=== PATIENT | female | born 1935 | race Caucasian/White ===

== ENCOUNTER 2018-04-21 02:18 | Outpatient (RCR) | payer MEDICARE, SELFPAY ==
[2018-04-21] MEDS: Normal Saline Flush 10 ML SYR IVP (08:25)
[2018-04-21 08:46] LABS: Abs Immature Grans 0.01 k/cumm (0.0-0.09); Absolute Basophil Count 0.03 k/cumm (0.0-0.2); Absolute Lymphocyte Count 1.17 k/cumm (1.2-3.4); Absolute Monocyte Count 0.48 k/cumm (0.11-0.7); Absolute Neutrophil Count 2.89 k/cumm (1.2-6.7); Basophils % 0.6; Eosinophils % 6.1; HCT 38.7 % (36.0-46.0); HGB 12.9 g/dL (12.0-15.5); Immature Grans % 0.2; Mean Corp. HGB Concentration 33.3 g/dL (32.0-36.0); Mean Corpuscular Hemoglobin 30.2 pg (27.0-33.0); Mean Corpuscular Volume 90.6 fL (80-95); Monocytes % 9.8; Neutrophils % 59.3; Platelet Count 260 x1000/uL (130-400); RBC 4.27 m/cumm (4.00-5.20); RBC Distribution Width 14.8 % (11.7-14.6); White Blood Cell Count 4.88 k/cumm (4.4-10.8)
[2018-04-21 09:02] LABS: ALT 16 U/L (12-78); AST 15 U/L (15-37); Albumin 3.1 g/dL (3.4-5.0); Alkaline Phosphatase 52 U/L (46-116); Anion Gap 11.4 mmol/L (3-11); BUN 12 mg/dL (7-18); Bilirubin, Total 0.4 mg/dL (0.2-1.0); CO2 23.6 mmol/L (21.0-32.0); CREATININE 1.02 mg/dL (0.55-1.02); Calcium 8.7 mg/dL (8.5-10.1); Chloride 107 mmol/L (98-107); Estimated GFR 52.14 (mL/min/1.73m2); Glucose 102 mg/dL (70-100); Potassium 3.7 mmol/L (3.5-5.1); Sodium 142 mmol/L (136-145); Total Protein 6.4 g/dL (6.4-8.2)
== END 2018-05-06 ==
LOC: INF 02:18
PROVIDERS: PCP Family Medicine; Visit Provider Internal Medicine Medical Oncology
DX: C50.412 Malignant neoplasm of upper-outer quadrant of left female breast (principal); Z17.1 Estrogen receptor negative status [ER-]; Z45.2 Encounter for adjustment and management of vascular access device
CPT/HCPCS: 36591; 80053; 85025

== ENCOUNTER 2018-06-02 01:30 | Outpatient (RCR) | payer MEDICARE, SELFPAY ==
[2018-05-12 08:53] LABS: Abs Immature Grans 0.01 k/cumm (0.0-0.09); Absolute Basophil Count 0.05 k/cumm (0.0-0.2); Absolute Lymphocyte Count 1.19 k/cumm (1.2-3.4); Absolute Monocyte Count 0.48 k/cumm (0.11-0.7); Basophils % 0.8; HCT 38.3 % (36.0-46.0); HGB 12.8 g/dL (12.0-15.5); Immature Grans % 0.2; Lymphocytes % 19.7; Mean Corp. HGB Concentration 33.4 g/dL (32.0-36.0); Mean Corpuscular Hemoglobin 30.5 pg (27.0-33.0); Mean Corpuscular Volume 91.4 fL (80-95); Mean Platelet Volume 9.9 fL (8.0-11.0); Neutrophils % 66.3; Platelet Count 285 x1000/uL (130-400); RBC 4.19 m/cumm (4.00-5.20); RBC Distribution Width 14.6 % (11.7-14.6); White Blood Cell Count 6.03 k/cumm (4.4-10.8)
[2018-05-12 09:07] LABS: ALT 17 U/L (12-78); AST 16 U/L (15-37); Albumin 3.1 g/dL (3.4-5.0); Alkaline Phosphatase 60 U/L (46-116); Anion Gap 5.6 mmol/L (3-11); BUN 9 mg/dL (7-18); Bilirubin, Total 0.3 mg/dL (0.2-1.0); CO2 27.4 mmol/L (21.0-32.0); CREATININE 0.98 mg/dL (0.55-1.02); Chloride 107 mmol/L (98-107); Estimated GFR 54.47 (mL/min/1.73m2); Glucose 101 mg/dL (70-100); Potassium 3.8 mmol/L (3.5-5.1); Sodium 140 mmol/L (136-145); Total Protein 6.6 g/dL (6.4-8.2)
[2018-05-12] MEDS: Normal Saline Flush 10 ML SYR IVP (13:25)
[2018-06-02] MEDS: Normal Saline Flush 10 ML SYR IVP (10:00)
[2018-06-02 10:14] LABS: Abs Immature Grans 0.01 k/cumm (0.0-0.09); Absolute Basophil Count 0.03 k/cumm (0.0-0.2); Absolute Eosinophil Count 0.25 k/cumm (0.0-0.7); Absolute Lymphocyte Count 1.32 k/cumm (1.2-3.4); Absolute Monocyte Count 0.47 k/cumm (0.11-0.7); Absolute Neutrophil Count 4.47 k/cumm (1.2-6.7); Basophils % 0.5; Eosinophils % 3.8; HCT 38.9 % (36.0-46.0); Immature Grans % 0.2; Lymphocytes % 20.2; Mean Corp. HGB Concentration 33.4 g/dL (32.0-36.0); Mean Corpuscular Hemoglobin 30.7 pg (27.0-33.0); Mean Platelet Volume 10.1 fL (8.0-11.0); Monocytes % 7.2; Neutrophils % 68.1; Platelet Count 268 x1000/uL (130-400); RBC 4.23 m/cumm (4.00-5.20); RBC Distribution Width 14.4 % (11.7-14.6); White Blood Cell Count 6.55 k/cumm (4.4-10.8)
[2018-06-02 10:25] LABS: ALT 18 U/L (12-78); AST 18 U/L (15-37); Albumin 3.2 g/dL (3.4-5.0); Alkaline Phosphatase 60 U/L (46-116); Anion Gap 8.8 mmol/L (3-11); BUN 13 mg/dL (7-18); Bilirubin, Total 0.4 mg/dL (0.2-1.0); CO2 26.2 mmol/L (21.0-32.0); CREATININE 1.04 mg/dL (0.55-1.02); Calcium 8.8 mg/dL (8.5-10.1); Chloride 106 mmol/L (98-107); Estimated GFR 50.86 (mL/min/1.73m2); Glucose 100 mg/dL (70-100); Potassium 3.9 mmol/L (3.5-5.1); Sodium 141 mmol/L (136-145); Total Protein 6.6 g/dL (6.4-8.2)
== END 2018-06-05 23:59 | disposition home or self-care (01) ==
LOC: INF 01:30
PROVIDERS: PCP Family Medicine; Visit Provider Internal Medicine Medical Oncology
DX: C50.412 Malignant neoplasm of upper-outer quadrant of left female breast (principal); Z17.1 Estrogen receptor negative status [ER-]; Z45.2 Encounter for adjustment and management of vascular access device
CPT/HCPCS: 36591; 80053; 85025

== ENCOUNTER 2018-06-23 02:00 | Outpatient (RCR) | payer MEDICARE, SELFPAY ==
[2018-06-23] MEDS: Normal Saline Flush 10 ML SYR IVP (09:35)
[2018-06-23 10:19] LABS: Abs Immature Grans 0.01 k/cumm (0.0-0.09); Absolute Basophil Count 0.05 k/cumm (0.0-0.2); Absolute Eosinophil Count 0.22 k/cumm (0.0-0.7); Absolute Lymphocyte Count 0.99 k/cumm (1.2-3.4); Absolute Monocyte Count 0.39 k/cumm (0.11-0.7); Absolute Neutrophil Count 3.27 k/cumm (1.2-6.7); Eosinophils % 4.5; HCT 40.4 % (36.0-46.0); HGB 13.7 g/dL (12.0-15.5); Immature Grans % 0.2; Lymphocytes % 20.1; Mean Corp. HGB Concentration 33.9 g/dL (32.0-36.0); Mean Corpuscular Hemoglobin 30.9 pg (27.0-33.0); Monocytes % 7.9; Neutrophils % 66.3; Platelet Count 262 x1000/uL (130-400); RBC 4.44 m/cumm (4.00-5.20); RBC Distribution Width 14.3 % (11.7-14.6); White Blood Cell Count 4.93 k/cumm (4.4-10.8)
[2018-06-23 10:38] LABS: ALT 19 U/L (12-78); AST 17 U/L (15-37); Albumin 3.3 g/dL (3.4-5.0); Alkaline Phosphatase 58 U/L (46-116); Anion Gap 10.8 mmol/L (3-11); BUN 16 mg/dL (7-18); Bilirubin, Total 0.4 mg/dL (0.2-1.0); CO2 26.2 mmol/L (21.0-32.0); CREATININE 0.98 mg/dL (0.55-1.02); Calcium 9.2 mg/dL (8.5-10.1); Chloride 106 mmol/L (98-107); Estimated GFR 54.47 (mL/min/1.73m2); Glucose 92 mg/dL (70-100); Potassium 3.8 mmol/L (3.5-5.1); Sodium 143 mmol/L (136-145); Total Protein 6.7 g/dL (6.4-8.2)
== END 2018-07-06 23:59 | disposition home or self-care (01) ==
LOC: INF 02:00
PROVIDERS: PCP Family Medicine; Visit Provider Internal Medicine Medical Oncology
DX: C50.412 Malignant neoplasm of upper-outer quadrant of left female breast (principal); Z17.1 Estrogen receptor negative status [ER-]; Z45.2 Encounter for adjustment and management of vascular access device
CPT/HCPCS: 36415; 80053; 96523; 85025

== ENCOUNTER 2018-07-19 00:40 | Outpatient (CLI) | payer MEDICARE, SELFPAY ==
--- NOTE | 2018-07-19 08:15 | DI.NM_ITS ---
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 Comparison is made with examination from . There is radiotracer activity seen in the kidneys and urinary bladder. Since the prior examination, there has been significant decrease in the radiotracer uptake in the axial and appendicular skeleton. Most notably, the activity seen in the mid thoracic spine, lumbar spine and ribs has nearly completely resolved. There is mild increased radiotracer uptake still visualized in the right hemisacrum and right 11th rib. No new areas of increased radiotracer uptake are noted. There is stable mild increased radiotracer uptake projected in the left breast. This appears stable since . Photopenic areas are seen in the hips bilaterally, consistent with bilateral total hip prostheses. IMPRESSION: 1. Significant decrease in the radiotracer uptake previously seen in the axial and appendicular skeleton consistent with response to therapy. Mild residual increased radiotracer uptake seen in the right 11th rib and the right hemisacrum. 2. No new areas of increased radiotracer activity in the axial or appendicular skeleton to suggest new osseous metastatic disease.
== END 2018-07-19 01:00 ==
PROVIDERS: PCP Family Medicine; Visit Provider Internal Medicine Hematology & Oncology
DX: C79.51 Secondary malignant neoplasm of bone (principal); C50.412 Malignant neoplasm of upper-outer quadrant of left female breast; Z17.1 Estrogen receptor negative status [ER-]
CPT/HCPCS: 78306

== ENCOUNTER 2018-08-02 01:17 | Outpatient (CLI) | payer MEDICARE, SELFPAY ==
--- NOTE | 2018-08-02 10:30 | MERGE_ITS ---
*[facility]* *[facility]* [address] [place] [address] Date of study: 08/02/2018 Transthoracic Echocardiography M-mode, complete 2D, complete spectral Doppler, and color Doppler *STUDY CONCLUSIONS* Summary: 1. Left ventricle: Wall thickness was increased increased in a pattern of mild to moderate LVH. Systolic function was normal. The estimated ejection fraction was 55-60%. Wall motion was normal; there were no regional wall motion abnormalities. Some parameters suggest diastolic dysfunction. 2. Mitral valve: Mildly calcified annulus. 3. Right ventricle: The cavity size was normal. Wall thickness was normal. Systolic function was normal. 4. Pulmonary arteries: Pulmonary systolic pressure was increased, in the range of 35mm Hg to 40mm Hg. *PATIENT PRESENTATION* Height: 160cm ((63in) ) S/D Pressure: 131 / 72 Weight: 86.2kg ((189.6lb) ) BSA: 1.99m^2 Test start time: 10:40 AM. Test stop time: 11:20 AM. PERFORMING Unknown PERFORMING [facility] RN ADMISSION RT Ada (Emma)(CT), [facility] ORDERING Que Merino REFERRING Que Merino *PROCEDURE DATA* Procedure information: The patient was identified by two identifiers. This study was interpreted by [facility]. Pertinent images and digital data are archived for permanent storage and are available for subsequent review. Comparison was made to the study of 11/20/2016. Study status: Routine. Transthoracic echocardiography. M-mode, complete 2D, complete spectral Doppler, and color Doppler. A Transthoracic Echocardiogram was performed. Scanning was performed from the parasternal, apical, subcostal, and suprasternal notch acoustic windows. Images were obtained using an [id number] cardiac ultrasound machine. Image quality was adequate. Study completion: The patient tolerated the procedure well. There were no complications. *CARDIAC ANATOMY* Left ventricle: Wall thickness was increased increased in a pattern of mild to moderate LVH. Systolic function was normal. The estimated ejection fraction was 55-60%. Wall motion was normal; there were no regional wall motion abnormalities. Some parameters suggest diastolic dysfunction. Aortic valve: Trileaflet; normal thickness, mildly calcified leaflets. Mobility was not restricted. Doppler: Transvalvular velocity was within the normal range. There was no stenosis. There was no significant regurgitation. VTI ratio of LVOT to aortic valve: 0.58. Valve area (VTI): 2cm^2. Indexed valve area (VTI): 1cm^2/m^2. Peak velocity ratio of LVOT to aortic valve: 0.56. Valve area (Vmax): 1.9cm^2. Indexed valve area (Vmax): 1cm^2/m^2. Mean velocity ratio of LVOT to aortic valve: 0.6. Valve area (Vmean): 2.1cm^2. Indexed valve area (Vmean): 1cm^2/m^2. Mean gradient (S): 5.2mm Hg. Peak gradient (S): 8.9mm Hg. Aorta: Aortic root: The aortic root was normal in size. Ascending aorta: The ascending aorta was mildly dilated. Mitral valve: Mildly calcified annulus. Mobility was not restricted. Doppler: Transvalvular velocity was within the normal range. There was no evidence for stenosis. There was trivial regurgitation. Valve area by pressure half-time: 2.8cm^2. Indexed valve area by pressure half-time: 1.4cm^2/m^2. Peak gradient (D): 2.2mm Hg. Left atrium: The atrium was normal in size. Right ventricle: The cavity size was normal. Wall thickness was normal. Systolic function was normal. Pulmonic valve: Structurally normal valve. Doppler: Transvalvular velocity was within the normal range. There was no evidence for stenosis. There was no significant regurgitation. Tricuspid valve: Structurally normal valve. Doppler: Transvalvular velocity was within the normal range. There was no evidence for stenosis. There was mild regurgitation. Pulmonary artery: Pulmonary systolic pressure was increased, in the range of 35mm Hg to 40mm Hg. Right atrium: The atrium was normal in size. Pericardium: There was no pericardial effusion. Systemic veins: Inferior vena cava: Well visualized. The vessel was patent and normal in size. The respirophasic diameter changes were in the normal range (greater than or equal to 50%). Baseline ECG: Normal sinus rhythm. Measurements Left ventricle Value 11/20/2016 Reference LV ID, ED, PLAX 5.2 cm 5.4 3.5 - 6.0 LV ID, ES, PLAX 3.5 cm 4.0 2.1 - 4.0 LV PW thickness, ED, PLAX 1.2 cm 1.2 LV end-diastolic volume, 87 ml 1-p A2C LV ejection fraction, 1-p 60 % 51 A2C LV end-diastolic volume, 77 ml 1-p A4C LV ejection fraction, 1-p 61 % 42 A4C LV e', lateral 0.068 m/sec LV E/e', lateral 11 LV e', medial 0.056 m/sec LV E/e', medial 13 LV e', average 0.062 m/sec LV E/e', average 12 Ventricular septum Value 11/20/2016 Reference IVS thickness, ED, PLAX 1.3 cm 1.3 LVOT Value 11/20/2016 Reference LVOT ID, A-P 2.1 cm 2.2 LVOT area 3.4 cm^2 3.7 LVOT peak velocity, S 0.84 m/sec 0.62 LVOT mean velocity, S 0.66 m/sec LVOT VTI, S 19.6 cm 15.1 LVOT peak gradient, S 2.8 mm Hg LVOT mean gradient, S 1.9 mm Hg 1 Stroke volume (SV), LVOT 67 ml DP Stroke index (SV/bsa), 33 ml/m^2 LVOT DP Aortic valve Value 11/20/2016 Reference Aortic valve peak 1.5 m/sec velocity, S Aortic valve mean 1.08 m/sec velocity, S Aortic valve VTI, S 34.0 cm Aortic mean gradient, S 5.2 mm Hg 3 Aortic peak gradient, S 8.9 mm Hg 5 VTI ratio, LVOT/AV 0.58 Aortic valve area, VTI 2 cm^2 2.1 Velocity ratio, peak, 0.56 LVOT/AV Aortic valve area, peak 1.9 cm^2 1.9 velocity Velocity ratio, mean, 0.6 LVOT/AV Aortic valve area, mean 2.1 cm^2 velocity Aortic valve area/bsa, 1 cm^2/m^2 mean velocity Aorta Value 11/20/2016 Reference Aortic root ID, ED 3.3 cm Ascending aorta ID, A-P, S 3.7 cm 3.7 Left atrium Value 11/20/2016 Reference LA ID, A-P, ES 4.7 cm LA ID/bsa, A-P (H) 2.3 cm/m^2 <=2.2 LA area, ES, A4C 21.7 cm^2 8.8 - 23.4 LA area, ES, A2C 20 cm^2 25 LA volume/bsa, ES, 1-p A4C 37 ml/m^2 51 LA volume, ES, 2-p 69 ml LA volume/bsa, ES, 2-p 34 ml/m^2 LA/aortic root ratio 1.41 1.41 Mitral valve Value 11/20/2016 Reference Mitral E-wave peak 0.75 m/sec 0.77 velocity Mitral A-wave peak 0.92 m/sec 0.91 velocity Mitral deceleration time (H) 275 ms 150 - 230 Mitral pressure half-time 80 ms 60 Mitral peak gradient, D 2.2 mm Hg Mitral E/A ratio, peak 0.81 0.85 Mitral valve area, PHT, DP 2.8 cm^2 3.7 Pulmonary veins Value 11/20/2016 Reference Pulmonary vein peak 0.57 m/sec 0.72 velocity, S Pulmonary vein peak 0.51 m/sec 0.6 velocity, D Pulmonary vein velocity 1.12 1.2 ratio, peak, S/D Pulmonary vein A-wave 0.42 m/sec 0.45 reversal peak velocity Pulmonary vein A-wave 149 ms 173 reversal duration Tricuspid valve Value 11/20/2016 Reference Tricuspid regurg peak 3 m/sec 2.9 velocity Tricuspid peak RV-RA 36.4 mm Hg 33.8 gradient Right atrium Value 11/20/2016 Reference RA area, ES, A4C (H) 23.2 cm^2 24 8.3 - 19.5 Legend: (L) and (H) solomon values outside specified reference range. I have personally reviewed the images and have reviewed and edited the reported findings. Electronically signed by Matt Clark 08/02/2018 12:29
== END 2018-08-02 01:37 ==
PROVIDERS: PCP Family Medicine; Visit Provider Internal Medicine Hematology & Oncology
DX: I51.7 Cardiomegaly (principal); I10 Essential (primary) hypertension; E03.9 Hypothyroidism, unspecified; I34.8 Other nonrheumatic mitral valve disorders
CPT/HCPCS: 93306

== ENCOUNTER 2018-08-04 02:09 | Outpatient (RCR) | payer MEDICARE, SELFPAY ==
[2018-07-14] MEDS: Normal Saline Flush 10 ML SYR IVP (09:00)
[2018-07-14 09:22] LABS: Abs Immature Grans 0.01 k/cumm (0.0-0.09); Absolute Basophil Count 0.04 k/cumm (0.0-0.2); Absolute Eosinophil Count 0.26 k/cumm (0.0-0.7); Absolute Lymphocyte Count 1.08 k/cumm (1.2-3.4); Absolute Monocyte Count 0.43 k/cumm (0.11-0.7); Absolute Neutrophil Count 3.39 k/cumm (1.2-6.7); Basophils % 0.8; HCT 39.2 % (36.0-46.0); HGB 12.9 g/dL (12.0-15.5); Immature Grans % 0.2; Lymphocytes % 20.7; Mean Corp. HGB Concentration 32.9 g/dL (32.0-36.0); Mean Corpuscular Hemoglobin 30.1 pg (27.0-33.0); Mean Corpuscular Volume 91.6 fL (80-95); Mean Platelet Volume 9.7 fL (8.0-11.0); Monocytes % 8.3; Platelet Count 285 x1000/uL (130-400); RBC 4.28 m/cumm (4.00-5.20); RBC Distribution Width 14.1 % (11.7-14.6); White Blood Cell Count 5.21 k/cumm (4.4-10.8)
[2018-07-14 09:38] LABS: ALT 22 U/L (12-78); AST 19 U/L (15-37); Alkaline Phosphatase 56 U/L (46-116); Anion Gap 10.6 mmol/L (3-11); BUN 12 mg/dL (7-18); Bilirubin, Total 0.4 mg/dL (0.2-1.0); CO2 26.4 mmol/L (21.0-32.0); Calcium 8.8 mg/dL (8.5-10.1); Chloride 106 mmol/L (98-107); Glucose 95 mg/dL (70-100); Potassium 3.8 mmol/L (3.5-5.1); Sodium 143 mmol/L (136-145); Total Protein 6.2 g/dL (6.4-8.2)
[2018-08-04] MEDS: Normal Saline Flush 10 ML SYR IVP (09:06)
[2018-08-04 09:31] LABS: Abs Immature Grans 0.01 k/cumm (0.0-0.09); Absolute Basophil Count 0.05 k/cumm (0.0-0.2); Absolute Eosinophil Count 0.32 k/cumm (0.0-0.7); Absolute Lymphocyte Count 1.17 k/cumm (1.2-3.4); Absolute Monocyte Count 0.45 k/cumm (0.11-0.7); Absolute Neutrophil Count 3.52 k/cumm (1.2-6.7); Basophils % 0.9; Eosinophils % 5.8; HCT 39.6 % (36.0-46.0); Immature Grans % 0.2; Lymphocytes % 21.2; Mean Corp. HGB Concentration 32.8 g/dL (32.0-36.0); Mean Corpuscular Hemoglobin 30.4 pg (27.0-33.0); Mean Corpuscular Volume 92.5 fL (80-95); Mean Platelet Volume 10.3 fL (8.0-11.0); Monocytes % 8.2; Neutrophils % 63.7; Platelet Count 247 x1000/uL (130-400); RBC 4.28 m/cumm (4.00-5.20); RBC Distribution Width 14.5 % (11.7-14.6); White Blood Cell Count 5.52 k/cumm (4.4-10.8)
[2018-08-04 09:48] LABS: ALT 17 U/L (12-78); AST 17 U/L (15-37); Albumin 3.2 g/dL (3.4-5.0); Alkaline Phosphatase 56 U/L (46-116); Anion Gap 11.3 mmol/L (3-11); BUN 17 mg/dL (7-18); Bilirubin, Total 0.5 mg/dL (0.2-1.0); CO2 25.7 mmol/L (21.0-32.0); CREATININE 1.02 mg/dL (0.55-1.02); Calcium 8.8 mg/dL (8.5-10.1); Chloride 106 mmol/L (98-107); Estimated GFR 52.01 (mL/min/1.73m2); Glucose 113 mg/dL (70-100); Potassium 3.6 mmol/L (3.5-5.1); Sodium 143 mmol/L (136-145); Total Protein 6.6 g/dL (6.4-8.2)
== END 2018-08-05 23:59 | disposition home or self-care (01) ==
LOC: INF 02:09
PROVIDERS: Internal Medicine Hematology & Oncology; PCP Family Medicine; Visit Provider Internal Medicine Medical Oncology
DX: C50.412 Malignant neoplasm of upper-outer quadrant of left female breast (principal); Z17.1 Estrogen receptor negative status [ER-]; Z45.2 Encounter for adjustment and management of vascular access device
CPT/HCPCS: 36591; 80053; 85025

== ENCOUNTER 2018-08-25 02:35 | Outpatient (RCR) | payer MEDICARE, SELFPAY ==
[2018-08-25] MEDS: Normal Saline Flush 10 ML SYR IVP (11:25)
[2018-08-25 11:40] LABS: Abs Immature Grans 0.01 k/cumm (0.0-0.09); Absolute Basophil Count 0.02 k/cumm (0.0-0.2); Absolute Eosinophil Count 0.22 k/cumm (0.0-0.7); Absolute Lymphocyte Count 1.26 k/cumm (1.2-3.4); Absolute Monocyte Count 0.35 k/cumm (0.11-0.7); Absolute Neutrophil Count 3.47 k/cumm (1.2-6.7); Basophils % 0.4; Eosinophils % 4.1; HCT 39.5 % (36.0-46.0); HGB 13.1 g/dL (12.0-15.5); Immature Grans % 0.2; Lymphocytes % 23.6; Mean Corp. HGB Concentration 33.2 g/dL (32.0-36.0); Mean Corpuscular Hemoglobin 30.2 pg (27.0-33.0); Mean Platelet Volume 9.9 fL (8.0-11.0); Monocytes % 6.6; Neutrophils % 65.1; Platelet Count 261 x1000/uL (130-400); RBC 4.34 m/cumm (4.00-5.20); RBC Distribution Width 14.3 % (11.7-14.6); White Blood Cell Count 5.33 k/cumm (4.4-10.8)
[2018-08-25 12:07] LABS: ALT 20 U/L (12-78); AST 18 U/L (15-37); Albumin 3.3 g/dL (3.4-5.0); Alkaline Phosphatase 52 U/L (46-116); Anion Gap 9.8 mmol/L (3-11); BUN 17 mg/dL (7-18); Bilirubin, Total 0.4 mg/dL (0.2-1.0); CO2 26.2 mmol/L (21.0-32.0); CREATININE 0.95 mg/dL (0.55-1.02); Calcium 9.3 mg/dL (8.5-10.1); Chloride 106 mmol/L (98-107); Estimated GFR 56.46 (mL/min/1.73m2); Glucose 113 mg/dL (70-100); Potassium 3.8 mmol/L (3.5-5.1); Sodium 142 mmol/L (136-145); Total Protein 6.7 g/dL (6.4-8.2)
== END 2018-09-05 23:59 | disposition home or self-care (01) ==
LOC: INF 02:35
PROVIDERS: PCP Family Medicine; Visit Provider Internal Medicine Hematology & Oncology
DX: C50.412 Malignant neoplasm of upper-outer quadrant of left female breast (principal); Z17.1 Estrogen receptor negative status [ER-]; Z45.2 Encounter for adjustment and management of vascular access device
CPT/HCPCS: 36591; 80053; 85025

== ENCOUNTER 2018-10-06 01:31 | Outpatient (RCR) | payer MEDICARE, SELFPAY ==
[2018-09-15] MEDS: Normal Saline Flush 10 ML SYR IVP (11:32)
[2018-09-15 11:39] LABS: Abs Immature Grans 0.01 k/cumm (0.0-0.09); Absolute Basophil Count 0.05 k/cumm (0.0-0.2); Absolute Lymphocyte Count 1.25 k/cumm (1.2-3.4); Absolute Monocyte Count 0.53 k/cumm (0.11-0.7); Absolute Neutrophil Count 4.66 k/cumm (1.2-6.7); Basophils % 0.7; HCT 40.1 % (36.0-46.0); HGB 13.6 g/dL (12.0-15.5); Immature Grans % 0.1; Lymphocytes % 18.7; Mean Corp. HGB Concentration 33.9 g/dL (32.0-36.0); Mean Corpuscular Hemoglobin 31.1 pg (27.0-33.0); Mean Corpuscular Volume 91.8 fL (80-95); Mean Platelet Volume 9.6 fL (8.0-11.0); Monocytes % 7.9; Neutrophils % 69.6; Platelet Count 309 x1000/uL (130-400); RBC 4.37 m/cumm (4.00-5.20); RBC Distribution Width 14.2 % (11.7-14.6)
[2018-09-15 11:51] LABS: ALT 17 U/L (12-78); AST 16 U/L (15-37); Albumin 3.3 g/dL (3.4-5.0); Alkaline Phosphatase 55 U/L (46-116); Anion Gap 10.2 mmol/L (3-11); BUN 17 mg/dL (7-18); Bilirubin, Total 0.5 mg/dL (0.2-1.0); CO2 25.8 mmol/L (21.0-32.0); CREATININE 1.11 mg/dL (0.55-1.02); Calcium 9.4 mg/dL (8.5-10.1); Chloride 106 mmol/L (98-107); Estimated GFR 47.18 (mL/min/1.73m2); Glucose 104 mg/dL (70-100); Sodium 142 mmol/L (136-145); Total Protein 7.1 g/dL (6.4-8.2)
[2018-10-06] MEDS: Normal Saline Flush 10 ML SYR IVP (10:00)
[2018-10-06 10:28] LABS: Abs Immature Grans 0.01 k/cumm (0.0-0.09); Absolute Basophil Count 0.03 k/cumm (0.0-0.2); Absolute Eosinophil Count 0.23 k/cumm (0.0-0.7); Absolute Monocyte Count 0.46 k/cumm (0.11-0.7); Basophils % 0.5; Eosinophils % 3.9; HCT 41.3 % (36.0-46.0); HGB 13.6 g/dL (12.0-15.5); Immature Grans % 0.2; Lymphocytes % 18.5; Mean Corp. HGB Concentration 32.9 g/dL (32.0-36.0); Mean Corpuscular Hemoglobin 30.2 pg (27.0-33.0); Mean Corpuscular Volume 91.6 fL (80-95); Monocytes % 7.8; Neutrophils % 69.1; Platelet Count 274 x1000/uL (130-400); RBC 4.51 m/cumm (4.00-5.20); RBC Distribution Width 14.7 % (11.7-14.6); White Blood Cell Count 5.93 k/cumm (4.4-10.8)
[2018-10-06 10:50] LABS: ALT 19 U/L (12-78); AST 18 U/L (15-37); Albumin 3.1 g/dL (3.4-5.0); Alkaline Phosphatase 52 U/L (46-116); Anion Gap 10.6 mmol/L (3-11); BUN 13 mg/dL (7-18); Bilirubin, Total 0.3 mg/dL (0.2-1.0); CO2 24.4 mmol/L (21.0-32.0); CREATININE 0.97 mg/dL (0.55-1.02); Calcium 8.3 mg/dL (8.5-10.1); Chloride 108 mmol/L (98-107); Estimated GFR 55.12 (mL/min/1.73m2); Glucose 107 mg/dL (70-100); Potassium 3.5 mmol/L (3.5-5.1); Sodium 143 mmol/L (136-145); Total Protein 6.7 g/dL (6.4-8.2)
== END 2018-10-06 23:59 | disposition home or self-care (01) ==
LOC: INF 01:31
PROVIDERS: PCP Family Medicine; Visit Provider Internal Medicine Hematology & Oncology
DX: C50.412 Malignant neoplasm of upper-outer quadrant of left female breast (principal); Z17.1 Estrogen receptor negative status [ER-]; Z45.2 Encounter for adjustment and management of vascular access device
CPT/HCPCS: 36591; 80053; 85025

== ENCOUNTER 2018-10-27 00:55 | Outpatient (RCR) | payer MEDICARE, SELFPAY ==
[2018-10-27] MEDS: Normal Saline Flush 10 ML SYR IVP (11:07)
[2018-10-27 11:15] LABS: Abs Immature Grans 0.02 k/cumm (0.0-0.09); Absolute Basophil Count 0.05 k/cumm (0.0-0.2); Absolute Eosinophil Count 0.25 k/cumm (0.0-0.7); Absolute Monocyte Count 0.47 k/cumm (0.11-0.7); Absolute Neutrophil Count 4.82 k/cumm (1.2-6.7); Basophils % 0.7; Eosinophils % 3.6; HCT 40.9 % (36.0-46.0); HGB 13.7 g/dL (12.0-15.5); Immature Grans % 0.3; Lymphocytes % 18.8; Mean Corp. HGB Concentration 33.5 g/dL (32.0-36.0); Mean Corpuscular Hemoglobin 30.4 pg (27.0-33.0); Mean Corpuscular Volume 90.7 fL (80-95); Mean Platelet Volume 9.9 fL (8.0-11.0); Monocytes % 6.8; Neutrophils % 69.8; Platelet Count 293 x1000/uL (130-400); RBC 4.51 m/cumm (4.00-5.20); RBC Distribution Width 14.4 % (11.7-14.6); White Blood Cell Count 6.91 k/cumm (4.4-10.8)
[2018-10-27 11:24] LABS: ALT 19 U/L (12-78); AST 19 U/L (15-37); Albumin 3.4 g/dL (3.4-5.0); Alkaline Phosphatase 56 U/L (46-116); BUN 14 mg/dL (7-18); Bilirubin, Total 0.5 mg/dL (0.2-1.0); CREATININE 0.95 mg/dL (0.55-1.02); Calcium 9.4 mg/dL (8.5-10.1); Chloride 106 mmol/L (98-107); Estimated GFR 56.46 (mL/min/1.73m2); Glucose 106 mg/dL (70-100); Potassium 3.9 mmol/L (3.5-5.1); Sodium 142 mmol/L (136-145); Total Protein 6.9 g/dL (6.4-8.2)
== END 2018-11-03 23:59 | disposition home or self-care (01) ==
LOC: INF 00:55
PROVIDERS: PCP Family Medicine; Visit Provider Internal Medicine Hematology & Oncology
DX: C50.412 Malignant neoplasm of upper-outer quadrant of left female breast (principal); Z17.1 Estrogen receptor negative status [ER-]; Z45.2 Encounter for adjustment and management of vascular access device
CPT/HCPCS: 36591; 80053; 85025

== ENCOUNTER → 2018-11-10 09:44 | Outpatient (BNVA) | payer MEDICARE, SELFPAY | PROVIDERS: PCP Family Medicine; Visit Provider Internal Medicine Cardiovascular Disease | DX: I49.3 Ventricular premature depolarization (principal); E03.9 Hypothyroidism, unspecified; I10 Essential (primary) hypertension; I47.2 Ventricular tachycardia | CPT/HCPCS: 99213 ==

== ENCOUNTER 2018-11-17 01:50 | Outpatient (RCR) | payer MEDICARE, SELFPAY ==
[2018-11-17] MEDS: Normal Saline Flush 10 ML SYR IVP ×2 (10:50→11:19)
[2018-11-17 11:14] LABS: Abs Immature Grans 0.01 k/cumm (0.0-0.09); Absolute Basophil Count 0.05 k/cumm (0.0-0.2); Absolute Eosinophil Count 0.27 k/cumm (0.0-0.7); Absolute Lymphocyte Count 1.13 k/cumm (1.2-3.4); Absolute Monocyte Count 0.53 k/cumm (0.11-0.7); Absolute Neutrophil Count 4.55 k/cumm (1.2-6.7); Basophils % 0.8; Eosinophils % 4.1; HGB 13.6 g/dL (12.0-15.5); Immature Grans % 0.2; Lymphocytes % 17.3; Mean Corp. HGB Concentration 33.2 g/dL (32.0-36.0); Mean Corpuscular Hemoglobin 30.4 pg (27.0-33.0); Mean Corpuscular Volume 91.5 fL (80-95); Mean Platelet Volume 10.1 fL (8.0-11.0); Monocytes % 8.1; Neutrophils % 69.5; Platelet Count 266 x1000/uL (130-400); RBC 4.48 m/cumm (4.00-5.20); RBC Distribution Width 14.3 % (11.7-14.6); White Blood Cell Count 6.54 k/cumm (4.4-10.8)
[2018-11-17 11:27] LABS: ALT 17 U/L (12-78); AST 19 U/L (15-37); Albumin 3.5 g/dL (3.4-5.0); Alkaline Phosphatase 57 U/L (46-116); Anion Gap 9.4 mmol/L (3-11); BUN 13 mg/dL (7-18); Bilirubin, Total 0.5 mg/dL (0.2-1.0); CO2 25.6 mmol/L (21.0-32.0); CREATININE 0.93 mg/dL (0.55-1.02); Calcium 8.9 mg/dL (8.5-10.1); Chloride 106 mmol/L (98-107); Estimated GFR 57.86 (mL/min/1.73m2); Glucose 96 mg/dL (70-100); Sodium 141 mmol/L (136-145)
== END 2018-12-04 23:59 | disposition home or self-care (01) ==
LOC: INF 01:50
PROVIDERS: PCP Family Medicine; Visit Provider Internal Medicine Hematology & Oncology
DX: C50.412 Malignant neoplasm of upper-outer quadrant of left female breast (principal); Z17.1 Estrogen receptor negative status [ER-]; Z45.2 Encounter for adjustment and management of vascular access device
CPT/HCPCS: 36591; 80053; 85025

== ENCOUNTER 2018-12-29 02:18 | Outpatient (RCR) | payer MEDICARE, SELFPAY ==
[2018-12-08] MEDS: Normal Saline Flush 10 ML SYR IVP (11:10)
[2018-12-08 11:51] LABS: Abs Immature Grans 0.01 k/cumm (0.0-0.09); Absolute Basophil Count 0.03 k/cumm (0.0-0.2); Absolute Eosinophil Count 0.26 k/cumm (0.0-0.7); Absolute Monocyte Count 0.51 k/cumm (0.11-0.7); Absolute Neutrophil Count 3.87 k/cumm (1.2-6.7); Basophils % 0.5; Eosinophils % 4.5; HCT 39.1 % (36.0-46.0); HGB 13.1 g/dL (12.0-15.5); Immature Grans % 0.2; Mean Corp. HGB Concentration 33.5 g/dL (32.0-36.0); Mean Corpuscular Hemoglobin 30.7 pg (27.0-33.0); Mean Corpuscular Volume 91.6 fL (80-95); Monocytes % 8.8; Platelet Count 267 x1000/uL (130-400); RBC 4.27 m/cumm (4.00-5.20); RBC Distribution Width 14.4 % (11.7-14.6); White Blood Cell Count 5.78 k/cumm (4.4-10.8)
[2018-12-08 12:07] LABS: ALT 17 U/L (12-78); AST 19 U/L (15-37); Albumin 3.3 g/dL (3.4-5.0); Alkaline Phosphatase 50 U/L (46-116); Anion Gap 9.5 mmol/L (3-11); BUN 18 mg/dL (7-18); Bilirubin, Total 0.4 mg/dL (0.2-1.0); CO2 26.5 mmol/L (21.0-32.0); Calcium 8.8 mg/dL (8.5-10.1); Chloride 106 mmol/L (98-107); Glucose 89 mg/dL (70-100); Potassium 3.7 mmol/L (3.5-5.1); Sodium 142 mmol/L (136-145); Total Protein 6.5 g/dL (6.4-8.2)
[2018-12-29] MEDS: Normal Saline Flush 10 ML SYR IVP (10:56)
[2018-12-29 11:22] LABS: Abs Immature Grans 0.01 k/cumm (0.0-0.09); Absolute Basophil Count 0.03 k/cumm (0.0-0.2); Absolute Eosinophil Count 0.26 k/cumm (0.0-0.7); Absolute Lymphocyte Count 0.98 k/cumm (1.2-3.4); Absolute Monocyte Count 0.39 k/cumm (0.11-0.7); Absolute Neutrophil Count 3.76 k/cumm (1.2-6.7); Basophils % 0.6; Eosinophils % 4.8; HCT 40.1 % (36.0-46.0); HGB 13.3 g/dL (12.0-15.5); Immature Grans % 0.2; Mean Corp. HGB Concentration 33.2 g/dL (32.0-36.0); Mean Corpuscular Hemoglobin 30.5 pg (27.0-33.0); Mean Platelet Volume 10.6 fL (8.0-11.0); Monocytes % 7.2; Neutrophils % 69.2; Platelet Count 264 x1000/uL (130-400); RBC 4.36 m/cumm (4.00-5.20); RBC Distribution Width 14.2 % (11.7-14.6); White Blood Cell Count 5.43 k/cumm (4.4-10.8)
[2018-12-29 11:24] LABS: ALT 20 U/L (12-78); AST 18 U/L (15-37); Albumin 3.2 g/dL (3.4-5.0); Alkaline Phosphatase 52 U/L (46-116); Anion Gap 10.5 mmol/L (3-11); BUN 13 mg/dL (7-18); Bilirubin, Total 0.4 mg/dL (0.2-1.0); CO2 25.5 mmol/L (21.0-32.0); CREATININE 1.01 mg/dL (0.55-1.02); Calcium 9.2 mg/dL (8.5-10.1); Chloride 106 mmol/L (98-107); Estimated GFR 52.61 (mL/min/1.73m2); Glucose 99 mg/dL (70-100); Potassium 3.8 mmol/L (3.5-5.1); Sodium 142 mmol/L (136-145); Total Protein 6.6 g/dL (6.4-8.2)
== END 2019-01-03 23:59 | disposition home or self-care (01) ==
LOC: INF 02:18
PROVIDERS: PCP Family Medicine; Visit Provider Internal Medicine Hematology & Oncology
DX: C50.412 Malignant neoplasm of upper-outer quadrant of left female breast (principal); Z17.1 Estrogen receptor negative status [ER-]; Z45.2 Encounter for adjustment and management of vascular access device
CPT/HCPCS: 36591; 80053; 85025

== ENCOUNTER 2019-01-19 01:55 | Outpatient (RCR) | payer MEDICARE, SELFPAY ==
[2019-01-19] MEDS: Normal Saline Flush 10 ML SYR IVP (11:39)
[2019-01-19 11:47] LABS: Abs Immature Grans 0.01 k/cumm (0.0-0.09); Absolute Basophil Count 0.04 k/cumm (0.0-0.2); Absolute Eosinophil Count 0.24 k/cumm (0.0-0.7); Absolute Lymphocyte Count 1.42 k/cumm (1.2-3.4); Absolute Monocyte Count 0.49 k/cumm (0.11-0.7); Absolute Neutrophil Count 4.19 k/cumm (1.2-6.7); Basophils % 0.6; Eosinophils % 3.8; HCT 40.6 % (36.0-46.0); HGB 13.6 g/dL (12.0-15.5); Immature Grans % 0.2; Lymphocytes % 22.2; Mean Corp. HGB Concentration 33.5 g/dL (32.0-36.0); Mean Corpuscular Hemoglobin 30.6 pg (27.0-33.0); Mean Corpuscular Volume 91.4 fL (80-95); Monocytes % 7.7; Neutrophils % 65.5; Platelet Count 297 x1000/uL (130-400); RBC 4.44 m/cumm (4.00-5.20); RBC Distribution Width 14.1 % (11.7-14.6); White Blood Cell Count 6.39 k/cumm (4.4-10.8)
[2019-01-19 11:58] LABS: ALT 20 U/L (12-78); AST 18 U/L (15-37); Albumin 3.2 g/dL (3.4-5.0); Alkaline Phosphatase 53 U/L (46-116); Anion Gap 8.6 mmol/L (3-11); BUN 14 mg/dL (7-18); Bilirubin, Total 0.4 mg/dL (0.2-1.0); CO2 25.4 mmol/L (21.0-32.0); CREATININE 0.97 mg/dL (0.55-1.02); Calcium 8.8 mg/dL (8.5-10.1); Chloride 107 mmol/L (98-107); Estimated GFR 55.12 (mL/min/1.73m2); Glucose 92 mg/dL (70-100); Potassium 3.9 mmol/L (3.5-5.1); Sodium 141 mmol/L (136-145); Total Protein 6.6 g/dL (6.4-8.2)
== END 2019-02-03 23:59 | disposition home or self-care (01) ==
LOC: INF 01:55
PROVIDERS: PCP Family Medicine; Visit Provider Internal Medicine Hematology & Oncology
DX: C50.412 Malignant neoplasm of upper-outer quadrant of left female breast (principal); Z17.1 Estrogen receptor negative status [ER-]; Z45.2 Encounter for adjustment and management of vascular access device
CPT/HCPCS: 36591; 80053; 85025

== ENCOUNTER 2019-02-24 01:09 | Outpatient (CLI) | payer MEDICARE, SELFPAY ==
--- NOTE | 2019-02-24 10:31 | MERGE_ITS ---
*[facility]* *[facility]* [address] [place] [address] Date of study: 02/24/2019 Transthoracic Echocardiography M-mode, complete 2D, complete spectral Doppler, and color Doppler *STUDY CONCLUSIONS* Summary: 1. Left ventricle: The cavity size was normal. Systolic function was normal. The estimated ejection fraction was 60-65%. The tissue Doppler parameters were abnormal. There was no evidence of elevated ventricular filling pressure by Doppler parameters. GLS average - 18.2. 2. Mitral valve: There was mild regurgitation. 3. Right ventricle: The cavity size was normal. Wall thickness was normal. Systolic function was normal. 4. Atrial septum: No defect or patent foramen ovale was identified. 5. Tricuspid valve: There was mild-moderate regurgitation. 6. Pulmonary arteries: Pulmonary systolic pressure was >= 20mm Hg. 7. Inferior vena cava: Poorly visualized. *PATIENT PRESENTATION* Height: 157.5cm ((62in) ) S/D Pressure: 148 / 83 Weight: 86.2kg ((189.6lb) ) BSA: 1.98m^2 Test start time: 10:30 AM. Test stop time: 11:30 AM. CONSULTING Rajwinder Harris PERFORMING Unknown PERFORMING [facility] TRAINING AND DEVELOPMENT ASSISTANT Blanca Portillo Marc REFERRING Que Merino *PROCEDURE DATA* Procedure information: This study was interpreted by [facility]. Pertinent images and digital data are archived for permanent storage and are available for subsequent review. Comparison was made to the study of 08/02/2018. Study status: Routine. Transthoracic echocardiography. M-mode, complete 2D, complete spectral Doppler, and color Doppler. A Transthoracic Echocardiogram was performed. Scanning was performed from the parasternal, apical, subcostal, and suprasternal notch acoustic windows. Images were obtained using an [employer] [email or web address] [id number] cardiac ultrasound machine. Image quality was good. Study completion: The patient tolerated the procedure well. History: PMH: Adverse effect antineoplastic, immunosuppressive drugs, breast ca *CARDIAC ANATOMY* Left ventricle: The cavity size was normal. Systolic function was normal. The estimated ejection fraction was 60-65%. The tissue Doppler parameters were abnormal. Diastolic parameters were normal for age. There was no evidence of elevated ventricular filling pressure by Doppler parameters. Aortic valve: Trileaflet; mildly thickened, mildly calcified leaflets. Doppler: There was no stenosis. There was no regurgitation. VTI ratio of LVOT to aortic valve: 0.72. Valve area (VTI): 1.9cm^2. Indexed valve area (VTI): 1cm^2/m^2. Peak velocity ratio of LVOT to aortic valve: 0.67. Valve area (Vmax): 1.8cm^2. Indexed valve area (Vmax): 0.9cm^2/m^2. Mean velocity ratio of LVOT to aortic valve: 0.62. Valve area (Vmean): 1.7cm^2. Indexed valve area (Vmean): 0.8cm^2/m^2. Mean gradient (S): 4.5mm Hg. Peak gradient (S): 7.7mm Hg. Aorta: Aortic root: The aortic root was normal in size. Ascending aorta: The ascending aorta was mildly dilated. Mitral valve: Doppler: There was no evidence for stenosis. There was mild regurgitation. Valve area by pressure half-time: 3.2cm^2. Indexed valve area by pressure half-time: 1.6cm^2/m^2. Left atrium: The atrium was normal in size. Atrial septum: No defect or patent foramen ovale was identified. Right ventricle: The cavity size was normal. Wall thickness was normal. Systolic function was normal. Pulmonic valve: Doppler: There was no evidence for stenosis. There was no significant regurgitation. Peak gradient (S): 5.7mm Hg. Tricuspid valve: Doppler: There was mild-moderate regurgitation. Pulmonary artery: Poorly visualized. Pulmonary systolic pressure was >= 20mm Hg. Right atrium: The atrium was normal in size. Pericardium: There was no pericardial effusion. Systemic veins: Inferior vena cava: Poorly visualized. Measurements Left ventricle Value 08/02/2018 Reference LV ID, ED, PLAX 4.2 cm 5.2 3.5 - 6.0 LV ID, ES, PLAX 2.6 cm 3.5 2.1 - 4.0 LV PW thickness, ED, PLAX 1.1 cm 1.2 LV end-diastolic volume, 82 ml 87 1-p A2C LV ejection fraction, 1-p 61 % 60 A2C LV end-diastolic volume, 82 ml 77 1-p A4C LV ejection fraction, 1-p 50 % 61 A4C LV e', lateral 0.068 m/sec 0.068 LV E/e', lateral 9 11 LV e', medial 0.043 m/sec 0.056 LV E/e', medial 14 13 LV e', average 0.056 m/sec 0.062 LV E/e', average 11 12 Ventricular septum Value 08/02/2018 Reference IVS thickness, ED, PLAX 1.1 cm 1.3 LVOT Value 08/02/2018 Reference LVOT ID, A-P 1.8 cm 2.1 LVOT area 2.7 cm^2 3.4 LVOT peak velocity, S 0.93 m/sec 0.84 LVOT mean velocity, S 0.63 m/sec 0.66 LVOT VTI, S 20.8 cm 19.6 LVOT peak gradient, S 3.4 mm Hg 2.8 LVOT mean gradient, S 1.8 mm Hg 1.9 Stroke volume (SV), LVOT 55 ml 67 DP Stroke index (SV/bsa), 28 ml/m^2 33 LVOT DP Aortic valve Value 08/02/2018 Reference Aortic valve peak 1.4 m/sec 1.5 velocity, S Aortic valve mean 1.01 m/sec 1.08 velocity, S Aortic valve VTI, S 29.0 cm 34.0 Aortic mean gradient, S 4.5 mm Hg 5.2 Aortic peak gradient, S 7.7 mm Hg 8.9 VTI ratio, LVOT/AV 0.72 0.58 Aortic valve area, VTI 1.9 cm^2 2 Velocity ratio, peak, 0.67 0.56 LVOT/AV Aortic valve area, peak 1.8 cm^2 1.9 velocity Velocity ratio, mean, 0.62 0.6 LVOT/AV Aortic valve area, mean 1.7 cm^2 2.1 velocity Aortic valve area/bsa, 0.8 cm^2/m^2 1 mean velocity Aorta Value 08/02/2018 Reference Aortic root ID, ED 3.0 cm 3.3 Ascending aorta ID, A-P, S 3.8 cm 3.7 Left atrium Value 08/02/2018 Reference LA ID, A-P, ES 3.9 cm 4.7 LA ID/bsa, A-P 2.0 cm/m^2 2.3 <=2.2 LA area, ES, A4C 16.3 cm^2 21.7 8.8 - 23.4 LA area, ES, A2C 17 cm^2 20 LA volume/bsa, S 26 ml/m^2 LA volume, ES, 2-p 45 ml 69 LA volume/bsa, ES, 2-p 23 ml/m^2 34 LA/aortic root ratio 1.3 1.41 Mitral valve Value 08/02/2018 Reference Mitral E-wave peak 0.63 m/sec 0.75 velocity Mitral A-wave peak 0.84 m/sec 0.92 velocity Mitral deceleration time (H) 238 ms 275 150 - 230 Mitral pressure half-time 69 ms 80 Mitral E/A ratio, peak 0.75 0.81 Mitral valve area, PHT, DP 3.2 cm^2 2.8 Tricuspid valve Value 08/02/2018 Reference Tricuspid regurg peak 2.5 m/sec 3 velocity Tricuspid peak RV-RA 24.9 mm Hg 36.4 gradient Right atrium Value 08/02/2018 Reference RA area, ES, A4C 14.2 cm^2 23.2 8.3 - 19.5 Pulmonic valve Value 08/02/2018 Reference Pulmonic peak gradient, S 5.7 mm Hg Legend: (L) and (H) solomon values outside specified reference range. I have personally reviewed the images and have reviewed and edited the reported findings. Electronically signed by Jacinto Mcdowell MD 02/24/2019 19:36
--- NOTE | 2019-02-24 12:46 | DI.NM_ITS ---
SYMPTOM/DIAGNOSIS: LT BREAST CA, C50.412. Z17.1 WHOLE BODY BONE SCAN: Comparison is made with 07/19/18. 25.9 millicuries of Technetium 99 MDP were administered IV. Whole body images and spot views of the spine and pelvis were performed. There is increased activity in the mid to lower thoracic spine and upper lumbar spine as well as right side of the pelvis and region of the right lesser trochanter. The findings appear similar to the previous exam. Mildly increased activity is again noted in the left breast, unchanged. No new sites of abnormal labeling are seen. IMPRESSION: Stable mildly increased activity in the spine and right pelvis.
== END 2019-02-24 01:29 ==
PROVIDERS: PCP Family Medicine; Visit Provider Internal Medicine Hematology & Oncology
DX: T45.1X5D Adverse effect of antineoplastic and immunosuppressive drugs, subsequent encounter (principal); C50.412 Malignant neoplasm of upper-outer quadrant of left female breast; C79.51 Secondary malignant neoplasm of bone; Z17.1 Estrogen receptor negative status [ER-]; I34.0 Nonrheumatic mitral (valve) insufficiency; I36.1 Nonrheumatic tricuspid (valve) insufficiency
CPT/HCPCS: 78306; 93306

== ENCOUNTER 2019-03-02 01:22 | Outpatient (RCR) | payer MEDICARE, SELFPAY ==
[2019-02-09 12:16] LABS: ALT 24 U/L (12-78); AST 22 U/L (15-37); Albumin 3.5 g/dL (3.4-5.0); Alkaline Phosphatase 54 U/L (46-116); Anion Gap 10.7 mmol/L (3-11); BUN 16 mg/dL (7-18); Bilirubin, Total 0.4 mg/dL (0.2-1.0); CO2 24.3 mmol/L (21.0-32.0); CREATININE 0.94 mg/dL (0.55-1.02); Calcium 9.2 mg/dL (8.5-10.1); Chloride 106 mmol/L (98-107); Estimated GFR 57.15 (mL/min/1.73m2); Glucose 92 mg/dL (70-100); Potassium 4.1 mmol/L (3.5-5.1); Sodium 141 mmol/L (136-145); Total Protein 6.8 g/dL (6.4-8.2)
[2019-02-09 12:25] LABS: Abs Immature Grans 0.02 k/cumm (0.0-0.09); Absolute Basophil Count 0.04 k/cumm (0.0-0.2); Absolute Eosinophil Count 0.25 k/cumm (0.0-0.7); Absolute Lymphocyte Count 1.41 k/cumm (1.2-3.4); Absolute Monocyte Count 0.46 k/cumm (0.11-0.7); Absolute Neutrophil Count 3.73 k/cumm (1.2-6.7); Basophils % 0.7; Eosinophils % 4.2; HCT 40.8 % (36.0-46.0); HGB 13.8 g/dL (12.0-15.5); Immature Grans % 0.3; Lymphocytes % 23.9; Mean Corp. HGB Concentration 33.8 g/dL (32.0-36.0); Mean Corpuscular Volume 91.7 fL (80-95); Mean Platelet Volume 10.6 fL (8.0-11.0); Monocytes % 7.8; Neutrophils % 63.1; Platelet Count 284 x1000/uL (130-400); RBC 4.45 m/cumm (4.00-5.20); RBC Distribution Width 14.8 % (11.7-14.6); White Blood Cell Count 5.91 k/cumm (4.4-10.8)
[2019-02-09] MEDS: Normal Saline Flush 10 ML SYR IVP (12:28)
[2019-03-02] MEDS: Normal Saline Flush 10 ML SYR IVP (11:25)
[2019-03-02 11:45] LABS: Abs Immature Grans 0.01 k/cumm (0.0-0.09); Absolute Basophil Count 0.04 k/cumm (0.0-0.2); Absolute Eosinophil Count 0.18 k/cumm (0.0-0.7); Absolute Lymphocyte Count 1.19 k/cumm (1.2-3.4); Absolute Monocyte Count 0.46 k/cumm (0.11-0.7); Absolute Neutrophil Count 5.06 k/cumm (1.2-6.7); Basophils % 0.6; Eosinophils % 2.6; HCT 39.5 % (36.0-46.0); HGB 13.4 g/dL (12.0-15.5); Immature Grans % 0.1; Lymphocytes % 17.1; Mean Corp. HGB Concentration 33.9 g/dL (32.0-36.0); Mean Corpuscular Hemoglobin 30.9 pg (27.0-33.0); Mean Corpuscular Volume 91.2 fL (80-95); Mean Platelet Volume 10.3 fL (8.0-11.0); Monocytes % 6.6; Platelet Count 264 x1000/uL (130-400); RBC 4.33 m/cumm (4.00-5.20); RBC Distribution Width 14.4 % (11.7-14.6); White Blood Cell Count 6.94 k/cumm (4.4-10.8)
[2019-03-02 12:00] LABS: ALT 18 U/L (12-78); AST 16 U/L (15-37); Albumin 3.3 g/dL (3.4-5.0); Alkaline Phosphatase 56 U/L (46-116); Anion Gap 11.7 mmol/L (3-11); BUN 12 mg/dL (7-18); Bilirubin, Total 0.5 mg/dL (0.2-1.0); CO2 23.3 mmol/L (21.0-32.0); CREATININE 0.96 mg/dL (0.55-1.02); Calcium 8.6 mg/dL (8.5-10.1); Chloride 108 mmol/L (98-107); Estimated GFR 55.78 (mL/min/1.73m2); Glucose 95 mg/dL (70-100); Potassium 3.9 mmol/L (3.5-5.1); Sodium 143 mmol/L (136-145); Total Protein 6.6 g/dL (6.4-8.2)
== END 2019-03-05 23:59 | disposition home or self-care (01) ==
LOC: INF 01:22
PROVIDERS: PCP Family Medicine; Visit Provider Internal Medicine Hematology & Oncology
DX: C50.412 Malignant neoplasm of upper-outer quadrant of left female breast (principal); Z17.1 Estrogen receptor negative status [ER-]; Z45.2 Encounter for adjustment and management of vascular access device
CPT/HCPCS: 36591; 80053; 85025

== ENCOUNTER 2019-03-23 10:36 | Outpatient (RCR) | payer MEDICARE, SELFPAY ==
[2019-03-23] MEDS: Normal Saline Flush 10 ML SYR IVP (10:44)
[2019-03-23 11:18] LABS: Abs Immature Grans 0.01 k/cumm (0.0-0.09); Absolute Basophil Count 0.03 k/cumm (0.0-0.2); Absolute Lymphocyte Count 1.22 k/cumm (1.2-3.4); Absolute Monocyte Count 0.58 k/cumm (0.11-0.7); Absolute Neutrophil Count 5.28 k/cumm (1.2-6.7); Basophils % 0.4; Eosinophils % 2.7; HCT 40.9 % (36.0-46.0); HGB 13.8 g/dL (12.0-15.5); Immature Grans % 0.1; Lymphocytes % 16.7; Mean Corp. HGB Concentration 33.7 g/dL (32.0-36.0); Mean Corpuscular Hemoglobin 30.7 pg (27.0-33.0); Mean Corpuscular Volume 90.9 fL (80-95); Mean Platelet Volume 10.3 fL (8.0-11.0); Monocytes % 7.9; Neutrophils % 72.2; Platelet Count 305 x1000/uL (130-400); RBC Distribution Width 14.5 % (11.7-14.6); White Blood Cell Count 7.32 k/cumm (4.4-10.8)
[2019-03-23 11:46] LABS: ALT 27 U/L (12-78); AST 20 U/L (15-37); Albumin 3.3 g/dL (3.4-5.0); Alkaline Phosphatase 57 U/L (46-116); Anion Gap 8.9 mmol/L (3-11); BUN 13 mg/dL (7-18); Bilirubin, Total 0.3 mg/dL (0.2-1.0); CO2 25.1 mmol/L (21.0-32.0); CREATININE 0.88 mg/dL (0.55-1.02); Calcium 9.6 mg/dL (8.5-10.1); Chloride 107 mmol/L (98-107); Glucose 95 mg/dL (70-100); Potassium 3.9 mmol/L (3.5-5.1); Sodium 141 mmol/L (136-145); Total Protein 6.8 g/dL (6.4-8.2)
== END 2019-04-05 23:59 | disposition home or self-care (01) ==
LOC: INF 10:36
PROVIDERS: PCP Family Medicine; Visit Provider Internal Medicine Hematology & Oncology
DX: C50.412 Malignant neoplasm of upper-outer quadrant of left female breast (principal); Z17.1 Estrogen receptor negative status [ER-]; Z45.2 Encounter for adjustment and management of vascular access device
CPT/HCPCS: 36591; 80053; 85025

== ENCOUNTER 2019-05-04 00:52 | Outpatient (RCR) | payer MEDICARE, SELFPAY ==
[2019-04-13] MEDS: Normal Saline Flush 10 ML SYR 30 ML IVP (12:43)
[2019-04-13 12:52] LABS: Abs Immature Grans 0.01 k/cumm (0.0-0.09); Absolute Basophil Count 0.02 k/cumm (0.0-0.2); Absolute Eosinophil Count 0.23 k/cumm (0.0-0.7); Absolute Monocyte Count 0.46 k/cumm (0.11-0.7); Absolute Neutrophil Count 4.48 k/cumm (1.2-6.7); Basophils % 0.3; Eosinophils % 3.4; HCT 38.2 % (36.0-46.0); HGB 12.8 g/dL (12.0-15.5); Immature Grans % 0.1; Lymphocytes % 22.4; Mean Corp. HGB Concentration 33.5 g/dL (32.0-36.0); Mean Corpuscular Hemoglobin 30.8 pg (27.0-33.0); Mean Platelet Volume 10.2 fL (8.0-11.0); Monocytes % 6.9; Neutrophils % 66.9; Platelet Count 273 x1000/uL (130-400); RBC 4.15 m/cumm (4.00-5.20); RBC Distribution Width 14.3 % (11.7-14.6)
[2019-04-13 13:02] LABS: ALT 19 U/L (12-78); AST 13 U/L (15-37); Albumin 3.1 g/dL (3.4-5.0); Alkaline Phosphatase 51 U/L (46-116); BUN 14 mg/dL (7-18); Bilirubin, Total 0.2 mg/dL (0.2-1.0); CREATININE 1.04 mg/dL (0.55-1.02); Calcium 8.4 mg/dL (8.5-10.1); Chloride 109 mmol/L (98-107); Estimated GFR 50.86 (mL/min/1.73m2); Glucose 96 mg/dL (70-100); Potassium 3.7 mmol/L (3.5-5.1); Sodium 143 mmol/L (136-145); Total Protein 6.3 g/dL (6.4-8.2)
[2019-05-04 08:47] LABS: Abs Immature Grans 0.01 k/cumm (0.0-0.09); Absolute Basophil Count 0.04 k/cumm (0.0-0.2); Absolute Eosinophil Count 0.22 k/cumm (0.0-0.7); Absolute Lymphocyte Count 1.18 k/cumm (1.2-3.4); Absolute Monocyte Count 0.48 k/cumm (0.11-0.7); Absolute Neutrophil Count 3.72 k/cumm (1.2-6.7); Basophils % 0.7; Eosinophils % 3.9; HCT 40.1 % (36.0-46.0); HGB 13.3 g/dL (12.0-15.5); Immature Grans % 0.2; Lymphocytes % 20.9; Mean Corp. HGB Concentration 33.2 g/dL (32.0-36.0); Mean Corpuscular Hemoglobin 30.6 pg (27.0-33.0); Mean Corpuscular Volume 92.2 fL (80-95); Mean Platelet Volume 9.9 fL (8.0-11.0); Monocytes % 8.5; Neutrophils % 65.8; Platelet Count 319 x1000/uL (130-400); RBC 4.35 m/cumm (4.00-5.20); RBC Distribution Width 14.3 % (11.7-14.6); White Blood Cell Count 5.65 k/cumm (4.4-10.8)
[2019-05-04 09:01] LABS: ALT 23 U/L (14-59); AST 16 U/L (15-37); Albumin 3.2 g/dL (3.4-5.0); Alkaline Phosphatase 54 U/L (46-116); Anion Gap 10.8 mmol/L (3-11); BUN 14 mg/dL (7-18); Bilirubin, Total 0.3 mg/dL (0.2-1.0); CO2 24.2 mmol/L (21.0-32.0); CREATININE 0.95 mg/dL (0.55-1.02); Calcium 8.6 mg/dL (8.5-10.1); Chloride 108 mmol/L (98-107); Estimated GFR 56.32 (mL/min/1.73m2); Glucose 98 mg/dL (70-100); Sodium 143 mmol/L (136-145); Total Protein 6.6 g/dL (6.4-8.2)
[2019-05-04] MEDS: Normal Saline Flush 10 ML SYR 30 ML IVP (10:16)
== END 2019-05-06 23:59 | disposition home or self-care (01) ==
LOC: INF 00:52
PROVIDERS: PCP Family Medicine; Visit Provider Internal Medicine Hematology & Oncology
DX: C50.412 Malignant neoplasm of upper-outer quadrant of left female breast (principal); Z17.1 Estrogen receptor negative status [ER-]; Z45.2 Encounter for adjustment and management of vascular access device
CPT/HCPCS: 36591; 80053; 85025

== ENCOUNTER → 2019-05-18 11:16 | Outpatient (BNVA) | payer MEDICARE, SELFPAY | PROVIDERS: PCP Family Medicine; Visit Provider Internal Medicine Cardiovascular Disease | DX: I49.3 Ventricular premature depolarization (principal); I10 Essential (primary) hypertension; E03.9 Hypothyroidism, unspecified; Z85.3 Personal history of malignant neoplasm of breast | CPT/HCPCS: 99213 ==

== ENCOUNTER 2019-05-25 01:21 | Outpatient (RCR) | payer MEDICARE, SELFPAY ==
[2019-05-25 08:46] LABS: Abs Immature Grans 0.01 k/cumm (0.0-0.09); Absolute Basophil Count 0.04 k/cumm (0.0-0.2); Absolute Eosinophil Count 0.33 k/cumm (0.0-0.7); Absolute Lymphocyte Count 1.28 k/cumm (1.2-3.4); Absolute Neutrophil Count 3.44 k/cumm (1.2-6.7); Basophils % 0.7; Eosinophils % 5.9; HCT 39.8 % (36.0-46.0); HGB 13.4 g/dL (12.0-15.5); Immature Grans % 0.2; Lymphocytes % 22.9; Mean Corp. HGB Concentration 33.7 g/dL (32.0-36.0); Mean Corpuscular Hemoglobin 30.7 pg (27.0-33.0); Mean Corpuscular Volume 91.1 fL (80-95); Mean Platelet Volume 9.7 fL (8.0-11.0); Monocytes % 8.9; Neutrophils % 61.4; Platelet Count 320 x1000/uL (130-400); RBC 4.37 m/cumm (4.00-5.20)
[2019-05-25 09:01] LABS: ALT 19 U/L (14-59); AST 17 U/L (15-37); Albumin 3.2 g/dL (3.4-5.0); Alkaline Phosphatase 54 U/L (46-116); Anion Gap 10.9 mmol/L (3-11); BUN 9 mg/dL (7-18); Bilirubin, Total 0.5 mg/dL (0.2-1.0); CO2 23.1 mmol/L (21.0-32.0); CREATININE 1.01 mg/dL (0.55-1.02); Calcium 8.5 mg/dL (8.5-10.1); Chloride 109 mmol/L (98-107); Estimated GFR 52.48 (mL/min/1.73m2); Glucose 125 mg/dL (70-100); Potassium 3.6 mmol/L (3.5-5.1); Sodium 143 mmol/L (136-145); Total Protein 6.6 g/dL (6.4-8.2)
[2019-05-25] MEDS: Normal Saline Flush 10 ML SYR IVP (09:08)
== END 2019-06-05 23:59 | disposition home or self-care (01) ==
LOC: INF 01:21
PROVIDERS: PCP Family Medicine; Visit Provider Internal Medicine Hematology & Oncology
DX: C50.412 Malignant neoplasm of upper-outer quadrant of left female breast (principal); Z17.1 Estrogen receptor negative status [ER-]; Z45.2 Encounter for adjustment and management of vascular access device
CPT/HCPCS: 36591; 80053; 85025

== ENCOUNTER 2019-07-03 01:51 | Outpatient (CLI) | payer MEDICARE, SELFPAY ==
--- NOTE | 2019-07-03 15:57 | DI.DEXA_ITS ---
EXAM: XR DEXA BONE DENSITY W/WO SREE INDICATION: BREAST CA RECURRENT METS BONE,PALLIATIVE CHEMO, C50.919,POSTMENOPAUSAL Z78.0. COMPARISON: No previous for comparison. TECHNIQUE: 2D digital imaging was performed. FINDINGS: The lateral view of the spine shows no compression deformities. Evaluation of the lumbar spine shows a total T-score of 2.2 and Z-score of 5.0. This is within normal limits. Evaluation of the left fo rearm shows a total T-score of -1.0 and a Z-score of 2.3. This is within normal limits. IMPRESSION: No evidence of osteoporosis.
== END 2019-07-03 02:11 ==
PROVIDERS: PCP Family Medicine; Visit Provider Family Medicine
DX: C50.919 Malignant neoplasm of unspecified site of unspecified female breast (principal); C79.51 Secondary malignant neoplasm of bone; Z13.820 Encounter for screening for osteoporosis
CPT/HCPCS: 77080

== ENCOUNTER 2019-07-06 01:51 | Outpatient (RCR) | payer MEDICARE, SELFPAY ==
[2019-06-15] MEDS: Normal Saline Flush 10 ML SYR 30 ML IVP (09:35)
[2019-06-15 10:34] LABS: ALT 19 U/L (14-59); AST 19 U/L (15-37); Albumin 3.2 g/dL (3.4-5.0); Alkaline Phosphatase 55 U/L (46-116); BUN 13 mg/dL (7-18); Bilirubin, Total 0.3 mg/dL (0.2-1.0); CREATININE 0.95 mg/dL (0.55-1.02); Calcium 8.1 mg/dL (8.5-10.1); Chloride 110 mmol/L (98-107); Estimated GFR 56.32 (mL/min/1.73m2); Glucose 89 mg/dL (70-100); Potassium 4.2 mmol/L (3.5-5.1); Sodium 143 mmol/L (136-145); Total Protein 6.4 g/dL (6.4-8.2)
[2019-06-15 10:39] LABS: Abs Immature Grans 0.02 k/cumm (0.0-0.09); Absolute Basophil Count 0.04 k/cumm (0.0-0.2); Absolute Eosinophil Count 0.24 k/cumm (0.0-0.7); Absolute Lymphocyte Count 1.05 k/cumm (1.2-3.4); Basophils % 0.8; Eosinophils % 4.7; HCT 40.1 % (36.0-46.0); HGB 13.2 g/dL (12.0-15.5); Immature Grans % 0.4; Lymphocytes % 20.4; Mean Corp. HGB Concentration 32.9 g/dL (32.0-36.0); Mean Corpuscular Hemoglobin 30.6 pg (27.0-33.0); Mean Corpuscular Volume 92.8 fL (80-95); Mean Platelet Volume 10.2 fL (8.0-11.0); Monocytes % 7.8; Neutrophils % 65.9; Platelet Count 299 x1000/uL (130-400); RBC 4.32 m/cumm (4.00-5.20); RBC Distribution Width 14.5 % (11.7-14.6); White Blood Cell Count 5.15 k/cumm (4.4-10.8)
[2019-07-06] MEDS: Normal Saline Flush 10 ML SYR 30 ML IVP (09:25)
[2019-07-06 09:55] LABS: Abs Immature Grans 0.01 k/cumm (0.0-0.09); Absolute Basophil Count 0.04 k/cumm (0.0-0.2); Absolute Eosinophil Count 0.25 k/cumm (0.0-0.7); Absolute Lymphocyte Count 1.54 k/cumm (1.2-3.4); Absolute Monocyte Count 0.66 k/cumm (0.11-0.7); Absolute Neutrophil Count 5.12 k/cumm (1.2-6.7); Basophils % 0.5; Eosinophils % 3.3; HCT 40.8 % (36.0-46.0); HGB 13.6 g/dL (12.0-15.5); Immature Grans % 0.1; Lymphocytes % 20.2; Mean Corp. HGB Concentration 33.3 g/dL (32.0-36.0); Mean Corpuscular Hemoglobin 30.4 pg (27.0-33.0); Mean Corpuscular Volume 91.1 fL (80-95); Monocytes % 8.7; Neutrophils % 67.2; Platelet Count 321 x1000/uL (130-400); RBC 4.48 m/cumm (4.00-5.20); RBC Distribution Width 14.4 % (11.7-14.6); White Blood Cell Count 7.62 k/cumm (4.4-10.8)
[2019-07-06 10:10] LABS: ALT 22 U/L (14-59); AST 19 U/L (15-37); Albumin 3.4 g/dL (3.4-5.0); Alkaline Phosphatase 52 U/L (46-116); Anion Gap 8.4 mmol/L (3-11); BUN 13 mg/dL (7-18); Bilirubin, Total 0.4 mg/dL (0.2-1.0); CO2 25.6 mmol/L (21.0-32.0); Calcium 8.6 mg/dL (8.5-10.1); Chloride 108 mmol/L (98-107); Estimated GFR 53.08 (mL/min/1.73m2); Glucose 96 mg/dL (70-100); Potassium 3.7 mmol/L (3.5-5.1); Sodium 142 mmol/L (136-145); Total Protein 6.9 g/dL (6.4-8.2)
== END 2019-07-06 23:59 | disposition home or self-care (01) ==
LOC: INF 01:51
PROVIDERS: PCP Family Medicine; Visit Provider Internal Medicine Hematology & Oncology
DX: C50.412 Malignant neoplasm of upper-outer quadrant of left female breast (principal); Z17.1 Estrogen receptor negative status [ER-]; Z45.2 Encounter for adjustment and management of vascular access device
CPT/HCPCS: 36591; 80053; 85025

== ENCOUNTER 2019-07-27 02:55 | Outpatient (RCR) | payer MEDICARE, SELFPAY ==
[2019-07-27] MEDS: Normal Saline Flush 10 ML SYR IVP (10:08)
[2019-07-27 10:19] LABS: Abs Immature Grans 0.01 k/cumm (0.0-0.09); Absolute Basophil Count 0.04 k/cumm (0.0-0.2); Absolute Eosinophil Count 0.24 k/cumm (0.0-0.7); Absolute Lymphocyte Count 1.31 k/cumm (1.2-3.4); Absolute Monocyte Count 0.53 k/cumm (0.11-0.7); Absolute Neutrophil Count 3.77 k/cumm (1.2-6.7); Basophils % 0.7; Eosinophils % 4.1; HCT 41.1 % (36.0-46.0); HGB 13.7 g/dL (12.0-15.5); Immature Grans % 0.2; Lymphocytes % 22.2; Mean Corp. HGB Concentration 33.3 g/dL (32.0-36.0); Mean Corpuscular Hemoglobin 30.4 pg (27.0-33.0); Mean Corpuscular Volume 91.3 fL (80-95); Mean Platelet Volume 10.1 fL (8.0-11.0); Neutrophils % 63.8; Platelet Count 325 x1000/uL (130-400); RBC Distribution Width 14.3 % (11.7-14.6)
[2019-07-27 10:32] LABS: ALT 20 U/L (14-59); AST 19 U/L (15-37); Albumin 3.4 g/dL (3.4-5.0); Alkaline Phosphatase 52 U/L (46-116); Anion Gap 9.3 mmol/L (3-11); BUN 15 mg/dL (7-18); Bilirubin, Total 0.4 mg/dL (0.2-1.0); CO2 24.7 mmol/L (21.0-32.0); CREATININE 1.04 mg/dL (0.55-1.02); Calcium 8.8 mg/dL (8.5-10.1); Chloride 108 mmol/L (98-107); Estimated GFR 50.73 (mL/min/1.73m2); Glucose 92 mg/dL (74-106); Sodium 142 mmol/L (136-145); Total Protein 6.7 g/dL (6.4-8.2)
== END 2019-08-05 23:59 | disposition home or self-care (01) ==
LOC: INF 02:55
PROVIDERS: PCP Family Medicine; Visit Provider Internal Medicine Hematology & Oncology
DX: C50.412 Malignant neoplasm of upper-outer quadrant of left female breast (principal); Z17.1 Estrogen receptor negative status [ER-]; Z45.2 Encounter for adjustment and management of vascular access device
CPT/HCPCS: 36591; 80053; 85025

== ENCOUNTER 2019-08-17 01:12 | Outpatient (RCR) | payer MEDICARE, SELFPAY ==
[2019-08-17] MEDS: Normal Saline Flush 10 ML SYR IVP (07:55)
[2019-08-17 08:17] LABS: Abs Immature Grans 0.01 k/cumm (0.0-0.09); Absolute Basophil Count 0.03 k/cumm (0.0-0.2); Absolute Eosinophil Count 0.28 k/cumm (0.0-0.7); Absolute Lymphocyte Count 1.12 k/cumm (1.2-3.4); Absolute Monocyte Count 0.48 k/cumm (0.11-0.7); Absolute Neutrophil Count 3.29 k/cumm (1.2-6.7); Basophils % 0.6; Eosinophils % 5.4; HGB 13.3 g/dL (12.0-15.5); Immature Grans % 0.2; Lymphocytes % 21.5; Mean Corp. HGB Concentration 33.3 g/dL (32.0-36.0); Mean Corpuscular Hemoglobin 30.4 pg (27.0-33.0); Mean Corpuscular Volume 91.3 fL (80-95); Mean Platelet Volume 9.7 fL (8.0-11.0); Monocytes % 9.2; Neutrophils % 63.1; Platelet Count 302 x1000/uL (130-400); RBC 4.38 m/cumm (4.00-5.20); RBC Distribution Width 14.3 % (11.7-14.6); White Blood Cell Count 5.21 k/cumm (4.4-10.8)
[2019-08-17 08:29] LABS: ALT 16 U/L (14-59); AST 19 U/L (15-37); Albumin 3.3 g/dL (3.4-5.0); Alkaline Phosphatase 54 U/L (46-116); Anion Gap 9.4 mmol/L (3-11); BUN 12 mg/dL (7-18); Bilirubin, Total 0.3 mg/dL (0.2-1.0); CO2 26.6 mmol/L (21.0-32.0); CREATININE 1.06 mg/dL (0.55-1.02); Calcium 9.7 mg/dL (8.5-10.1); Chloride 107 mmol/L (98-107); Estimated GFR 49.63 (mL/min/1.73m2); Glucose 107 mg/dL (74-106); Potassium 3.8 mmol/L (3.5-5.1); Sodium 143 mmol/L (136-145); Total Protein 6.7 g/dL (6.4-8.2)
== END 2019-09-05 23:59 | disposition home or self-care (01) ==
LOC: INF 01:12
PROVIDERS: PCP Family Medicine; Visit Provider Internal Medicine Hematology & Oncology
DX: C50.412 Malignant neoplasm of upper-outer quadrant of left female breast (principal); Z17.1 Estrogen receptor negative status [ER-]; Z45.2 Encounter for adjustment and management of vascular access device
CPT/HCPCS: 36591; 80053; 85025

== ENCOUNTER 2019-08-25 02:17 | Outpatient (CLI) | payer MEDICARE, SELFPAY ==
--- NOTE | 2019-08-25 11:31 | DI.NM_ITS ---
EXAM: NM BONE SCAN WHOLE BODY GRP CLINICAL HISTORY: MALIGNANT NEOPLASM UPPER OUTER QUAD LT BREAST. COMPARISON: PORTABLE CHEST ONE VIEW from 09/23/2015 WHOLE BODY BONE SCAN from 07/19/2018 WHOLE BODY BONE SCAN from 02/24/2019 XR DEXA BONE DENSITY W/WO SREE from 07/03/2019 FINDINGS: Whole body bone scan was performed with intravenous infusion of 26.0 millicuries of technetium 99 lab eled methylene diphosphonate. Examination is compared with most recent study of 02/24/19. Multiple a reas of increased uptake in thoracic and lumbar spine are again seen and appears slightly increased i n intensity in comparison with previous examination. Areas of minimally increased uptake in region o f the right SI joint and right femoral trochanteric region again noted and unchanged. No convincing new area of increased radiotracer uptake. IMPRESSION: Mildly increased intensity of thoracic and lumbar spine areas of increased uptake. These do correspo nd with prominent osteophytes seen radiographically. Findings as described are indeterminate for adv ancing metastatic disease. Follow-up bone scan recommended in 6 months.
== END 2019-08-25 02:37 ==
PROVIDERS: PCP Family Medicine; Visit Provider Family Medicine
DX: C50.412 Malignant neoplasm of upper-outer quadrant of left female breast (principal); C79.51 Secondary malignant neoplasm of bone
CPT/HCPCS: 78306

== ENCOUNTER 2019-09-11 01:23 | Outpatient (CLI) | payer MEDICARE, SELFPAY ==
--- NOTE | 2019-09-11 14:10 | DI.US_ITS ---
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 There is top normal left ventricular wall thickne ss. The left ventricular systolic function is normal. The left ventricular ejection fraction is withi n the normal range. There is normal LV segmental wall motion. There is grade 2 diastolic dysfunction. LVEF is estimated to be 60-65%. Global longitudinal strain average is -15.3%. Right Ventricle : The right ventricle is normal size. The right ventricular systolic function appears normal. Atria : Left atrium is mildly dilated. The right atrium size is normal. Aortic Valve : Aortic valve is trileaflet. No aortic regurgitation is noted. AV sclerosis without harika nosis. Mitral Valve : Mitral valve leaflets are mildly thickened. Trace mitral regurgitation. No evidence of mitral valve stenosis. Tricuspid Valve : The tricuspid valve is not well visualized. Trace to mild tricuspid regurgitation. Compared to echocardiogram dated 02/24/2019: Global longitudinal strain average has decreased from -18 to -15%. There are no other significant changes. Wall motion Left Ventricle The left ventricle is normal size. The left ventricular systolic function is normal. The left ventric ular ejection fraction is within the normal range. There is top normal left ventricular wall thicknes s. There is normal LV segmental wall motion. There is grade 2 diastolic dysfunction. LVEF is estimate d to be 60-65%. Global longitudinal strain average is -15.3%. Right Ventricle The right ventricle is normal size. The right ventricular systolic function appears normal. Atria Left atrium is mildly dilated. The right atrium size is normal. Aortic Valve Aortic valve is trileaflet. AV sclerosis without stenosis. No aortic regurgitation is noted. Mitral Valve Mitral valve leaflets are mildly thickened. No evidence of mitral valve stenosis. Trace mitral regurg itation. Tricuspid Valve The tricuspid valve is not well visualized. Trace to mild tricuspid regurgitation. Pulmonic Valve Pulmonic valve is not well visualized. Trace to mild pulmonic regurgitation. Great Vessels The aortic root is normal in size. The ascending aorta is mildly dilated. IVC is normal in size and c ollapses >50% with inspiration. Estimated RVSP is 30-35 mmHg. Pericardium There is no pericardial effusion. 2D Dimensions IVSd 1.15 cm F: 0.6-1.0 LV EDV A2C 64.90 mL PWd 1.05 cm F: 0.6 - 1.0 LV EDV A4C 80.20 mL LVDd 5.20 cm F: 3.8 - 5.2 LA Volume Index A2C 34.71 mL/m2 LVDs 2.95 cm F: 2.2 - 3.5 LA Volume Index A4C 38.36 mL/m2 Aortic Root 2.95 cm F: 2.7 - 3.3 LA Volume Index Biplane 38.54 mL/m2 RVID Base (AP4) 3.30 cm (M/F) 2.5-4.1 LA Area A4C 20.28 cm2 RA Area A4C 17.89 cm2 LA Area A2C 20.38 cm2 LVOT 1.90 cm (M/F) 1.5-2.5 EF AP4 63.09 % Ascending Aorta 3.62 cm F: 2.3 - 3.1 EF AP2 62.10 % LVEF (Teich) 73.80 % EF BP 62.60 % LVEF (Chinchilla's) 62.60 % F: 54 - 74 LV Volume 56.16 mL F: 46 - 106 LV Volume Index 30.85 mL/m2 F: 29 - 61 FS 43.00 % LV Diastology E/A Ratio 0.7 MED E' 0.05 (>0.07 m/s) LV E/e MED 14.25 (<14) LAT E' 0.06 (>0.1 m/s) LV E/e LAT 11.75 (<14) Pulm Vein s 0.45 m/s PV S/D Ratio 1.10 Pulm Vein d 0.41 m/s Pulm Vein a 0.33 m/s A-A Duration 124.32 msec Aortic Valve LVOT Area 2.90 cm2 LVOT Vmax 0.89 m/s LVOT Mean David. 0.56 m/s LVOT Peak Gr. 3.2 mmHg LVOT Mean Gr. 1.5 mmHg AoV Area/ BSA (Vmax) 1.01 cm2/m2 LVOT VTI 0.200 m AoV Vmax 1.40 (0.5-1.3 m/s) AMY Mean David. Index 0.86 cm2/m2 AoV Mean David. 1.03 m/s AoV Peak Grad 7.9 mmHg AoV Mean Grad 4.7 (<5 mmHg) AoV VTI 0.341 (0.18-0.25 m) AoV Area VTI 1.86 (2.5-4.5 cm2) AoV Area/ BSA (VTI) 1.02 cm/m2 Mitral Valve MV E Max David. 0.69 (0.4-1.3 m/s) MV A Velocity 0.95 (0.4-1.3 m/s) E/A Ratio 0.72 MV Decel. Time 285.00 (160-240 msec) MV PHT 82.66 msec MVA PHT 2.65 cm2 Pulmonary Valve PV Peak Velocity 1.12 (0.5-1.5 m/s) RVOT Peak Gr. 2.23 mmHg RVOT Peak David. 0.75 m/s RVOT Mean Gr. 1.40 mmHg RVOT VTI 0.10 m Tricuspid Valve TR P. Velocity 2.79 m/s TV Regurg Vmax 2.79 m/s RAP Estimate 3.00 mmHg RVSP 33.05 mmHg TR P. Gradient 31.05 mmHg
== END 2019-09-11 01:43 ==
PROVIDERS: PCP Family Medicine; Visit Provider Nurse Practitioner Adult Health
DX: C50.412 Malignant neoplasm of upper-outer quadrant of left female breast (principal); Z17.1 Estrogen receptor negative status [ER-]; C79.89 Secondary malignant neoplasm of other specified sites; T45.1X1D Poisoning by antineoplastic and immunosuppressive drugs, accidental (unintentional), subsequent encounter; I50.1 Left ventricular failure, unspecified; I35.8 Other nonrheumatic aortic valve disorders
CPT/HCPCS: 93306

== ENCOUNTER 2019-09-28 01:55 | Outpatient (RCR) | payer MEDICARE, SELFPAY ==
[2019-09-07] MEDS: Normal Saline Flush 10 ML SYR IVP ×2 (08:39→08:48)
[2019-09-07 08:52] LABS: Abs Immature Grans 0.08 k/cumm (0.0-0.09); Absolute Basophil Count 0.05 k/cumm (0.0-0.2); Absolute Eosinophil Count 0.42 k/cumm (0.0-0.7); Absolute Lymphocyte Count 1.44 k/cumm (1.2-3.4); Absolute Monocyte Count 0.87 k/cumm (0.11-0.7); Absolute Neutrophil Count 6.05 k/cumm (1.2-6.7); Basophils % 0.6; Eosinophils % 4.7; HCT 38.1 % (36.0-46.0); HGB 12.6 g/dL (12.0-15.5); Immature Grans % 0.9; Lymphocytes % 16.2; Mean Corp. HGB Concentration 33.1 g/dL (32.0-36.0); Mean Corpuscular Hemoglobin 30.1 pg (27.0-33.0); Mean Corpuscular Volume 91.1 fL (80-95); Mean Platelet Volume 9.6 fL (8.0-11.0); Monocytes % 9.8; Neutrophils % 67.8; Platelet Count 384 x1000/uL (130-400); RBC 4.18 m/cumm (4.00-5.20); RBC Distribution Width 13.7 % (11.7-14.6); White Blood Cell Count 8.91 k/cumm (4.4-10.8)
[2019-09-07 09:04] LABS: ALT 15 U/L (14-59); AST 15 U/L (15-37); Albumin 2.9 g/dL (3.4-5.0); Alkaline Phosphatase 65 U/L (46-116); Anion Gap 11.7 mmol/L (3-11); BUN 12 mg/dL (7-18); Bilirubin, Total 0.3 mg/dL (0.2-1.0); CO2 24.3 mmol/L (21.0-32.0); CREATININE 1.08 mg/dL (0.55-1.02); Calcium 8.5 mg/dL (8.5-10.1); Chloride 106 mmol/L (98-107); Estimated GFR 48.57 (mL/min/1.73m2); Glucose 140 mg/dL (74-106); Potassium 3.7 mmol/L (3.5-5.1); Sodium 142 mmol/L (136-145); Total Protein 6.8 g/dL (6.4-8.2)
[2019-09-28] MEDS: Normal Saline Flush 10 ML SYR IVP (09:30)
[2019-09-28 09:42] LABS: Absolute Basophil Count 0.03 k/cumm (0.0-0.2); Absolute Eosinophil Count 0.33 k/cumm (0.0-0.7); Absolute Lymphocyte Count 1.05 k/cumm (1.2-3.4); Absolute Monocyte Count 0.45 k/cumm (0.11-0.7); Absolute Neutrophil Count 2.93 k/cumm (1.2-6.7); Basophils % 0.6; Eosinophils % 6.9; HCT 39.9 % (36.0-46.0); HGB 13.2 g/dL (12.0-15.5); Lymphocytes % 21.9; Mean Corp. HGB Concentration 33.1 g/dL (32.0-36.0); Mean Corpuscular Hemoglobin 30.3 pg (27.0-33.0); Mean Corpuscular Volume 91.5 fL (80-95); Mean Platelet Volume 9.5 fL (8.0-11.0); Monocytes % 9.4; Neutrophils % 61.2; Platelet Count 319 x1000/uL (130-400); RBC 4.36 m/cumm (4.00-5.20); RBC Distribution Width 14.9 % (11.7-14.6); White Blood Cell Count 4.79 k/cumm (4.4-10.8)
[2019-09-28 09:59] LABS: ALT 18 U/L (14-59); AST 19 U/L (15-37); Albumin 3.1 g/dL (3.4-5.0); Alkaline Phosphatase 54 U/L (46-116); Anion Gap 11.1 mmol/L (3-11); BUN 14 mg/dL (7-18); Bilirubin, Total 0.3 mg/dL (0.2-1.0); CO2 23.9 mmol/L (21.0-32.0); CREATININE 0.86 mg/dL (0.55-1.02); Calcium 8.7 mg/dL (8.5-10.1); Chloride 108 mmol/L (98-107); Glucose 118 mg/dL (74-106); Potassium 3.7 mmol/L (3.5-5.1); Sodium 143 mmol/L (136-145); Total Protein 6.4 g/dL (6.4-8.2)
== END 2019-10-06 23:59 | disposition home or self-care (01) ==
LOC: INF 01:55
PROVIDERS: PCP Family Medicine; Visit Provider Internal Medicine Hematology & Oncology
DX: C50.412 Malignant neoplasm of upper-outer quadrant of left female breast (principal); Z17.1 Estrogen receptor negative status [ER-]; C79.51 Secondary malignant neoplasm of bone; Z45.2 Encounter for adjustment and management of vascular access device
CPT/HCPCS: 36591; 80053; 85025

== ENCOUNTER 2019-10-19 09:38 | Outpatient (RCR) | payer MEDICARE, SELFPAY ==
[2019-10-19 09:59] LABS: Absolute Basophil Count 0.05 k/cumm (0.0-0.2); Absolute Eosinophil Count 0.21 k/cumm (0.0-0.7); Absolute Lymphocyte Count 0.99 k/cumm (1.2-3.4); Absolute Monocyte Count 0.46 k/cumm (0.11-0.7); Absolute Neutrophil Count 3.56 k/cumm (1.2-6.7); Basophils % 0.9; HCT 40.5 % (36.0-46.0); HGB 13.4 g/dL (12.0-15.5); Lymphocytes % 18.8; Mean Corp. HGB Concentration 33.1 g/dL (32.0-36.0); Mean Corpuscular Hemoglobin 30.1 pg (27.0-33.0); Monocytes % 8.7; Neutrophils % 67.6; Platelet Count 325 x1000/uL (130-400); RBC 4.45 m/cumm (4.00-5.20); RBC Distribution Width 14.9 % (11.7-14.6); White Blood Cell Count 5.27 k/cumm (4.4-10.8)
[2019-10-19 10:29] LABS: ALT 20 U/L (14-59); AST 22 U/L (15-37); Albumin 3.2 g/dL (3.4-5.0); Alkaline Phosphatase 53 U/L (46-116); Anion Gap 9.3 mmol/L (3-11); BUN 13 mg/dL (7-18); Bilirubin, Total 0.4 mg/dL (0.2-1.0); CO2 24.7 mmol/L (21.0-32.0); CREATININE 0.98 mg/dL (0.55-1.02); Calcium 8.3 mg/dL (8.5-10.1); Chloride 110 mmol/L (98-107); Estimated GFR 54.33 (mL/min/1.73m2); Glucose 103 mg/dL (74-106); Potassium 3.8 mmol/L (3.5-5.1); Sodium 144 mmol/L (136-145); Total Protein 6.5 g/dL (6.4-8.2)
== END 2019-11-04 23:59 | disposition home or self-care (01) ==
LOC: INF 09:38
PROVIDERS: PCP Family Medicine; Visit Provider Internal Medicine Hematology & Oncology
DX: C50.412 Malignant neoplasm of upper-outer quadrant of left female breast (principal); Z17.1 Estrogen receptor negative status [ER-]; C79.51 Secondary malignant neoplasm of bone; Z45.2 Encounter for adjustment and management of vascular access device
CPT/HCPCS: 36591; 80053; 85025

== ENCOUNTER 2019-11-30 01:23 | Outpatient (RCR) | payer MEDICARE, SELFPAY ==
[2019-11-09] MEDS: Normal Saline Flush 10 ML SYR IVP (08:11)
[2019-11-09 08:21] LABS: Abs Immature Grans 0.02 k/cumm (0.0-0.09); Absolute Basophil Count 0.07 k/cumm (0.0-0.2); Absolute Eosinophil Count 0.43 k/cumm (0.0-0.7); Absolute Lymphocyte Count 1.47 k/cumm (1.2-3.4); Absolute Monocyte Count 0.45 k/cumm (0.11-0.7); Absolute Neutrophil Count 3.18 k/cumm (1.2-6.7); Basophils % 1.2; Eosinophils % 7.7; HCT 41.2 % (36.0-46.0); HGB 13.8 g/dL (12.0-15.5); Immature Grans % 0.4 %; Lymphocytes % 26.2; Mean Corp. HGB Concentration 33.5 g/dL (32.0-36.0); Mean Corpuscular Hemoglobin 30.1 pg (27.0-33.0); Mean Platelet Volume 9.9 fL (8.0-11.0); Neutrophils % 56.5; Platelet Count 349 x1000/uL (130-400); RBC 4.58 m/cumm (4.00-5.20); White Blood Cell Count 5.62 k/cumm (4.4-10.8)
[2019-11-09 08:29] LABS: ALT 18 U/L (14-59); AST 19 U/L (15-37); Albumin 3.3 g/dL (3.4-5.0); Alkaline Phosphatase 48 U/L (46-116); Anion Gap 11.8 mmol/L (3-11); BUN 14 mg/dL (7-18); Bilirubin, Total 0.5 mg/dL (0.2-1.0); CO2 23.2 mmol/L (21.0-32.0); CREATININE 1.09 mg/dL (0.55-1.02); Calcium 8.7 mg/dL (8.5-10.1); Chloride 108 mmol/L (98-107); Estimated GFR 48.06 (mL/min/1.73m2); Glucose 138 mg/dL (74-106); Potassium 3.6 mmol/L (3.5-5.1); Sodium 143 mmol/L (136-145); Total Protein 6.5 g/dL (6.4-8.2)
[2019-11-30] MEDS: Normal Saline Flush 10 ML SYR IVP (07:55)
[2019-11-30 08:21] LABS: Abs Immature Grans 0.01 k/cumm (0.0-0.09); Absolute Basophil Count 0.03 k/cumm (0.0-0.2); Absolute Eosinophil Count 0.26 k/cumm (0.0-0.7); Absolute Lymphocyte Count 1.42 k/cumm (1.2-3.4); Absolute Monocyte Count 0.47 k/cumm (0.11-0.7); Absolute Neutrophil Count 3.49 k/cumm (1.2-6.7); Basophils % 0.5; Eosinophils % 4.6; HCT 38.9 % (36.0-46.0); Immature Grans % 0.2 %; Mean Corp. HGB Concentration 33.4 g/dL (32.0-36.0); Mean Corpuscular Hemoglobin 30.4 pg (27.0-33.0); Mean Corpuscular Volume 90.9 fL (80-95); Mean Platelet Volume 9.9 fL (8.0-11.0); Monocytes % 8.3; Neutrophils % 61.4; Platelet Count 315 x1000/uL (130-400); RBC 4.28 m/cumm (4.00-5.20); RBC Distribution Width 14.9 % (11.7-14.6); White Blood Cell Count 5.68 k/cumm (4.4-10.8)
[2019-11-30 08:36] LABS: ALT 24 U/L (14-59); AST 21 U/L (15-37); Albumin 3.2 g/dL (3.4-5.0); Alkaline Phosphatase 62 U/L (46-116); Anion Gap 10.8 mmol/L (3-11); BUN 19 mg/dL (7-18); Bilirubin, Total 0.3 mg/dL (0.2-1.0); CO2 24.2 mmol/L (21.0-32.0); CREATININE 0.97 mg/dL (0.55-1.02); Calcium 8.5 mg/dL (8.5-10.1); Chloride 110 mmol/L (98-107); Estimated GFR 54.98 (mL/min/1.73m2); Glucose 119 mg/dL (74-106); Potassium 3.6 mmol/L (3.5-5.1); Sodium 145 mmol/L (136-145); Total Protein 6.5 g/dL (6.4-8.2)
== END 2019-12-05 23:59 | disposition home or self-care (01) ==
LOC: INF 01:23
PROVIDERS: PCP Family Medicine; Visit Provider Internal Medicine Hematology & Oncology
DX: C50.412 Malignant neoplasm of upper-outer quadrant of left female breast (principal); Z17.1 Estrogen receptor negative status [ER-]; C79.51 Secondary malignant neoplasm of bone; Z45.2 Encounter for adjustment and management of vascular access device
CPT/HCPCS: 36591; 80053; 85025

== ENCOUNTER 2019-12-21 01:38 | Outpatient (RCR) | payer MEDICARE, SELFPAY ==
[2019-12-21 08:17] LABS: Abs Immature Grans 0.01 k/cumm (0.0-0.09); Absolute Basophil Count 0.05 k/cumm (0.0-0.2); Absolute Eosinophil Count 0.37 k/cumm (0.0-0.7); Absolute Lymphocyte Count 1.53 k/cumm (1.2-3.4); Absolute Monocyte Count 0.62 k/cumm (0.11-0.7); Absolute Neutrophil Count 3.74 k/cumm (1.2-6.7); Basophils % 0.8; Eosinophils % 5.9; HCT 40.2 % (36.0-46.0); HGB 13.2 g/dL (12.0-15.5); Immature Grans % 0.2 %; Lymphocytes % 24.2; Mean Corp. HGB Concentration 32.8 g/dL (32.0-36.0); Mean Corpuscular Hemoglobin 30.1 pg (27.0-33.0); Mean Corpuscular Volume 91.6 fL (80-95); Mean Platelet Volume 10.1 fL (8.0-11.0); Monocytes % 9.8; Neutrophils % 59.1; Platelet Count 345 x1000/uL (130-400); RBC 4.39 m/cumm (4.00-5.20); RBC Distribution Width 14.4 % (11.7-14.6); White Blood Cell Count 6.32 k/cumm (4.4-10.8)
[2019-12-21 08:46] LABS: ALT 20 U/L (14-59); AST 17 U/L (15-37); Albumin 3.3 g/dL (3.4-5.0); Alkaline Phosphatase 62 U/L (46-116); Anion Gap 10.7 mmol/L (3-11); BUN 15 mg/dL (7-18); Bilirubin, Total 0.4 mg/dL (0.2-1.0); CO2 23.3 mmol/L (21.0-32.0); Chloride 106 mmol/L (98-107); Estimated GFR 47.55 (mL/min/1.73m2); Glucose 124 mg/dL (74-106); Potassium 3.7 mmol/L (3.5-5.1); Sodium 140 mmol/L (136-145); Total Protein 6.8 g/dL (6.4-8.2)
[2019-12-21] MEDS: Normal Saline Flush 10 ML SYR IVP (08:46)
== END 2020-01-04 23:59 | disposition home or self-care (01) ==
LOC: INF 01:38
PROVIDERS: PCP Family Medicine; Visit Provider Internal Medicine Hematology & Oncology
DX: C50.412 Malignant neoplasm of upper-outer quadrant of left female breast (principal); Z17.1 Estrogen receptor negative status [ER-]; C79.51 Secondary malignant neoplasm of bone; Z45.2 Encounter for adjustment and management of vascular access device
CPT/HCPCS: 36591; 80053; 85025

== ENCOUNTER 2019-12-22 08:10 | Outpatient (CLI) | payer MEDICARE, SELFPAY ==
--- NOTE | 2019-12-22 | DI.US_ITS ---
EXAM: US LOWER EXTREMITY VENOUS LT CLINICAL HISTORY: BREAST CA,BONY METS,NEW PAIN AND SWELLING LLE, M79.662,C50.412,C79.51 TECHNIQUE: Left lower extremity venous ultrasound performed using grayscale, color-flow, and spectra l Doppler analysis. COMPARISON: No exams were available for comparison FINDINGS: The left common femoral, femoral and popliteal veins demonstrate normal compressibility, augmentation , and color Doppler. The posterior tibial veins are patent. Saphenofemoral junction is unremarkable. IMPRESSION: No LLE DVT. DATA REPOSITORY:
== END 2019-12-22 08:30 ==
PROVIDERS: PCP Family Medicine; Visit Provider Nurse Practitioner Adult Health
DX: M79.662 Pain in left lower leg (principal); C50.412 Malignant neoplasm of upper-outer quadrant of left female breast; C79.51 Secondary malignant neoplasm of bone
CPT/HCPCS: 93971

== ENCOUNTER 2019-12-25 01:58 | Outpatient (CLI) | payer MEDICARE, SELFPAY ==
--- NOTE | 2019-12-25 12:26 | DI.US_ITS ---
APPROVED REPORT EXAM: Comprehensive 2D, Doppler, and color-flow Echocardiogram Patient Location: Out-Patient Chemical Applicator: Blanca Portillo RDCS (AE) Indications: Lt Breast CA, Adverse effect of antioneoplastic and immunospress Other Information Study Quality: Adequate Conclusion Aortic Valve : There is no aortic valvular stenosis. Left Ventricle : The left ventricle is normal size. There is normal left ventricular wall thickness. The left ventricular systolic function is normal. The left ventricular ejection fraction is within th e normal range. There is normal LV segmental wall motion. Diastolic function appears abnormal. 55-60% . Global longitudinal strain average is -16%. Right Ventricle : The right ventricle is normal size. The right ventricular systolic function is norm al. The RVSP is 25.5mmHg. Atria : The left atrium size is normal. The right atrium size is normal. Valves: There are no hemodynamically significant valvular lesions. Great vessels:IVC is normal in size and collapses >50% with inspiration. Compared to echocardiogram dated 09/11/2019: Longitudinal strain is grossly unchanged at -16% Wall motion Left Ventricle The left ventricle is normal size. The left ventricular systolic function is normal. The left ventric ular ejection fraction is within the normal range. There is normal left ventricular wall thickness. T here is normal LV segmental wall motion. Diastolic function appears abnormal. There is no ventricular septal defect visualized. 55-60%. Global longitudinal strain average is -16%. Right Ventricle The right ventricle is normal size. The right ventricular systolic function is normal. The RVSP is 25 .5mmHg. Atria The left atrium size is normal. The right atrium size is normal. The interatrial septum is intact wit h no evidence for an atrial septal defect. Aortic Valve Aortic valve is trileaflet. There is no aortic valvular stenosis. No aortic regurgitation is present. Mitral Valve There is mitral annular calcification. No evidence of mitral valve stenosis. Trace mitral regurgitati on. Tricuspid Valve The tricuspid valve is normal in structure. There is no tricuspid valve stenosis. Trace tricuspid reg urgitation. Pulmonic Valve Pulmonic valve is not well visualized. There is no pulmonic valvular stenosis. There is no pulmonic v alvular regurgitation. Great Vessels The aortic root is normal in size. Ascending aorta is not well visualized. Aortic arch is normal in c aliber. IVC is normal in size and collapses >50% with inspiration. Pericardium There is no pericardial effusion. There is no pleural effusion. 2D Dimensions IVSD d PLAX 0.95 cm F: 0.6-1.0 LA vol/ BSA A2C s A-L 17.4 mL/m2 LVPW d PLAX 0.96 cm F: 0.6 - 1.0 LA vol/ BSA A4C s A-L 9.1 mL/m2 LVID d PLAX 4.68 cm F: 3.8 - 5.2 LVDs 2.99 cm F: 2.2 - 3.5 Ao Root d 2.65 cm F: 2.7 - 3.3 IVS 0.95 cm LV EF Teichholz 65.0 % LV Volume Index 39.36 mL/m2 F: 29 - 61 M-Mode TAPSE 3.12 cm (M/F) <1.7 LV Diastology E Decel Time 406.00 (160-240 msec) MV E/A Ratio 0.65 MV E' medial 0.075 (>0.07 m/s) MV E' lateral 0.058 (>0.1 m/s) E Peak Velocity 0.58 m/s A Peak Velocity 0.88 m/s Aortic Valve LVOT Area 2.54 cm2 LVOT Vmax 0.80 m/s LVOT Mean Advid. 0.50 m/s LVOT Peak Grad 2.5 mmHg LVOT Mean Grad 1.2 mmHg LVOT VTI 0.180 m LVOT Diam s 1.80 cm (M/F) 1.5-2.5 AoV Vmax 1.10 (0.5-1.3 m/s) Velocity Ratio 0.72 AoV Mean David. 0.28 m/s AoV Peak Grad 4.8 mmHg LVOT SV 46.56 mL AoV Mean Grad 3.5 (<5 mmHg) AoV VTI 0.236 (0.18-0.25 m) AoV Area VTI 1.98 (2.5-4.5 cm2) AoV Area/ BSA (VTI) 1.06 cm/m2 Pulmonary Valve PV Vmax 1.33 (0.5-1.5 m/s) PV Peak Grad 7.1 mmHg PV Mean Grad 3.6 mmHg Tricuspid Valve TV Vmax 2.37 (0.3-1.0 m/s) TR Vmax 2.37 m/s TR Peak Grad 22.4 mmHg RA Pressure 3.00 mmHg RVSP (TR) 25.5 mmHg
== END 2019-12-25 02:18 ==
PROVIDERS: PCP Family Medicine; Visit Provider Internal Medicine Hematology & Oncology
DX: C50.412 Malignant neoplasm of upper-outer quadrant of left female breast (principal); Z17.1 Estrogen receptor negative status [ER-]; I50.30 Unspecified diastolic (congestive) heart failure; T45.1X5D Adverse effect of antineoplastic and immunosuppressive drugs, subsequent encounter
CPT/HCPCS: 93306

== ENCOUNTER → 2020-01-08 13:52 | Outpatient (BNVA) | payer MEDICARE, SELFPAY | PROVIDERS: PCP Family Medicine; Referring Provider Family Medicine; Visit Provider Internal Medicine Cardiovascular Disease | DX: I49.3 Ventricular premature depolarization (principal); I10 Essential (primary) hypertension | CPT/HCPCS: 99213 ==

== ENCOUNTER 2020-02-01 09:00 | Outpatient (RCR) | payer MEDICARE, SELFPAY ==
[2020-01-11] MEDS: Normal Saline Flush 10 ML SYR IVP (09:00)
[2020-01-11 09:35] LABS: Abs Immature Grans 0.01 k/cumm (0.0-0.09); Absolute Basophil Count 0.02 k/cumm (0.0-0.2); Absolute Monocyte Count 0.71 k/cumm (0.11-0.7); Absolute Neutrophil Count 5.41 k/cumm (1.2-6.7); Basophils % 0.3; Eosinophils % 3.9; HCT 40.1 % (36.0-46.0); HGB 13.3 g/dL (12.0-15.5); Immature Grans % 0.1 %; Lymphocytes % 16.8; Mean Corp. HGB Concentration 33.2 g/dL (32.0-36.0); Mean Corpuscular Hemoglobin 29.8 pg (27.0-33.0); Mean Corpuscular Volume 89.9 fL (80-95); Mean Platelet Volume 10.2 fL (8.0-11.0); Monocytes % 9.2; Neutrophils % 69.7; Platelet Count 349 x1000/uL (130-400); RBC 4.46 m/cumm (4.00-5.20); RBC Distribution Width 14.6 % (11.7-14.6); White Blood Cell Count 7.75 k/cumm (4.4-10.8)
[2020-01-11 09:53] LABS: ALT 20 U/L (14-59); AST 19 U/L (15-37); Albumin 3.3 g/dL (3.4-5.0); Alkaline Phosphatase 49 U/L (46-116); Anion Gap 8.5 mmol/L (3-11); BUN 14 mg/dL (7-18); Bilirubin, Total 0.4 mg/dL (0.2-1.0); CO2 25.5 mmol/L (21.0-32.0); CREATININE 1.02 mg/dL (0.55-1.02); Calcium 9.3 mg/dL (8.5-10.1); Chloride 106 mmol/L (98-107); Estimated GFR 51.88 (mL/min/1.73m2); Glucose 89 mg/dL (74-106); Potassium 3.9 mmol/L (3.5-5.1); Sodium 140 mmol/L (136-145); Total Protein 6.8 g/dL (6.4-8.2)
[2020-02-01 09:20] LABS: Abs Immature Grans 0.02 k/cumm (0.0-0.09); Absolute Basophil Count 0.02 k/cumm (0.0-0.2); Absolute Eosinophil Count 0.31 k/cumm (0.0-0.7); Absolute Lymphocyte Count 1.51 k/cumm (1.2-3.4); Absolute Monocyte Count 0.59 k/cumm (0.11-0.7); Absolute Neutrophil Count 4.84 k/cumm (1.2-6.7); Basophils % 0.3; Eosinophils % 4.3; HCT 39.7 % (36.0-46.0); HGB 13.1 g/dL (12.0-15.5); Immature Grans % 0.3 %; Lymphocytes % 20.7; Mean Corpuscular Volume 90.8 fL (80-95); Monocytes % 8.1; Neutrophils % 66.3; Platelet Count 333 x1000/uL (130-400); RBC 4.37 m/cumm (4.00-5.20); RBC Distribution Width 14.7 % (11.7-14.6); White Blood Cell Count 7.29 k/cumm (4.4-10.8)
[2020-02-01 09:55] LABS: ALT 27 U/L (14-59); AST 23 U/L (15-37); Albumin 3.3 g/dL (3.4-5.0); Alkaline Phosphatase 58 U/L (46-116); Anion Gap 4.9 mmol/L (3-11); BUN 17 mg/dL (7-18); Bilirubin, Total 0.3 mg/dL (0.2-1.0); CO2 27.1 mmol/L (21.0-32.0); CREATININE 1.18 mg/dL (0.55-1.02); Calcium 9.3 mg/dL (8.5-10.1); Chloride 107 mmol/L (98-107); Estimated GFR 43.85 (mL/min/1.73m2); Glucose 118 mg/dL (74-106); Potassium 4.1 mmol/L (3.5-5.1); Sodium 139 mmol/L (136-145); Total Protein 6.6 g/dL (6.4-8.2)
[2020-02-01] MEDS: Normal Saline Flush 10 ML SYR IVP (10:00)
== END 2020-02-04 23:59 | disposition home or self-care (01) ==
LOC: INF 09:00
PROVIDERS: PCP Family Medicine; Visit Provider Internal Medicine Hematology & Oncology
DX: C50.412 Malignant neoplasm of upper-outer quadrant of left female breast (principal); C79.51 Secondary malignant neoplasm of bone; Z45.2 Encounter for adjustment and management of vascular access device; Z17.1 Estrogen receptor negative status [ER-]
CPT/HCPCS: 36591; 80053; 85025

== ENCOUNTER 2020-02-22 04:03 | Outpatient (RCR) | payer MEDICARE, SELFPAY ==
[2020-02-22] MEDS: Normal Saline Flush 10 ML SYR IVP (08:00)
[2020-02-22 08:15] LABS: Abs Immature Grans 0.01 k/cumm (0.0-0.09); Absolute Basophil Count 0.01 k/cumm (0.0-0.2); Absolute Eosinophil Count 0.31 k/cumm (0.0-0.7); Absolute Lymphocyte Count 1.52 k/cumm (1.2-3.4); Absolute Monocyte Count 0.67 k/cumm (0.11-0.7); Absolute Neutrophil Count 4.99 k/cumm (1.2-6.7); Basophils % 0.1; Eosinophils % 4.1; HCT 39.4 % (36.0-46.0); HGB 13.1 g/dL (12.0-15.5); Immature Grans % 0.1 %; Lymphocytes % 20.2; Mean Corp. HGB Concentration 33.2 g/dL (32.0-36.0); Mean Corpuscular Hemoglobin 30.5 pg (27.0-33.0); Mean Corpuscular Volume 91.6 fL (80-95); Monocytes % 8.9; Neutrophils % 66.6; Platelet Count 291 x1000/uL (130-400); RBC Distribution Width 15.1 % (11.7-14.6); White Blood Cell Count 7.51 k/cumm (4.4-10.8)
[2020-02-22 08:30] LABS: ALT 21 U/L (14-59); AST 23 U/L (15-37); Albumin 3.5 g/dL (3.4-5.0); Alkaline Phosphatase 49 U/L (46-116); Anion Gap 11.9 mmol/L (3-11); BUN 15 mg/dL (7-18); Bilirubin, Total 0.5 mg/dL (0.2-1.0); CO2 23.1 mmol/L (21.0-32.0); CREATININE 1.14 mg/dL (0.55-1.02); Calcium 8.4 mg/dL (8.5-10.1); Chloride 107 mmol/L (98-107); Estimated GFR 45.63 (mL/min/1.73m2); Glucose 130 mg/dL (74-106); Potassium 3.9 mmol/L (3.5-5.1); Sodium 142 mmol/L (136-145); Total Protein 6.6 g/dL (6.4-8.2)
== END 2020-03-05 23:59 | disposition home or self-care (01) ==
LOC: INF 04:03
PROVIDERS: PCP Family Medicine; Visit Provider Internal Medicine Hematology & Oncology
DX: C50.412 Malignant neoplasm of upper-outer quadrant of left female breast (principal); Z17.1 Estrogen receptor negative status [ER-]; C79.51 Secondary malignant neoplasm of bone; Z45.2 Encounter for adjustment and management of vascular access device
CPT/HCPCS: 36591; 80053; 85025

== ENCOUNTER 2020-04-04 01:59 | Outpatient (RCR) | payer MEDICARE, SELFPAY ==
[2020-03-14] MEDS: Normal Saline Flush 10 ML SYR IVP (13:00)
[2020-03-14 13:17] LABS: Abs Immature Grans 0.01 k/cumm (0.0-0.09); Absolute Basophil Count 0.04 k/cumm (0.0-0.2); Absolute Eosinophil Count 0.25 k/cumm (0.0-0.7); Absolute Lymphocyte Count 1.72 k/cumm (1.2-3.4); Absolute Monocyte Count 0.53 k/cumm (0.11-0.7); Absolute Neutrophil Count 4.91 k/cumm (1.2-6.7); Basophils % 0.5; Eosinophils % 3.4; HCT 38.7 % (36.0-46.0); HGB 12.8 g/dL (12.0-15.5); Immature Grans % 0.1 %; Lymphocytes % 23.1; Mean Corp. HGB Concentration 33.1 g/dL (32.0-36.0); Mean Corpuscular Hemoglobin 30.3 pg (27.0-33.0); Mean Corpuscular Volume 91.7 fL (80-95); Mean Platelet Volume 9.7 fL (8.0-11.0); Monocytes % 7.1; Neutrophils % 65.8; Platelet Count 361 x1000/uL (130-400); RBC 4.22 m/cumm (4.00-5.20); RBC Distribution Width 15.2 % (11.7-14.6); White Blood Cell Count 7.46 k/cumm (4.4-10.8)
[2020-03-14 14:03] LABS: ALT 23 U/L (14-59); AST 27 U/L (15-37); Albumin 3.4 g/dL (3.4-5.0); Alkaline Phosphatase 53 U/L (46-116); Anion Gap 8.4 mmol/L (3-11); BUN 16 mg/dL (7-18); Bilirubin, Total 0.4 mg/dL (0.2-1.0); CO2 25.6 mmol/L (21.0-32.0); CREATININE 1.06 mg/dL (0.55-1.02); Chloride 106 mmol/L (98-107); Estimated GFR 49.63 (mL/min/1.73m2); Glucose 104 mg/dL (74-106); Potassium 4.1 mmol/L (3.5-5.1); Sodium 140 mmol/L (136-145); Total Protein 6.7 g/dL (6.4-8.2)
[2020-04-04] MEDS: Normal Saline Flush 10 ML SYR IVP (07:50)
[2020-04-04 08:14] LABS: Abs Immature Grans 0.01 10^3/uL (0.0-0.06); Absolute Basophil Count 0.04 10^3/uL (0.0-0.2); Absolute Eosinophil Count 0.33 10^3/uL (0.0-0.7); Absolute Lymphocyte Count 1.32 10^3/uL (1.2-3.4); Absolute Neutrophil Count 2.97 10^3/uL (1.2-6.7); Basophils % 0.8; Eosinophils % 6.4; HCT 38.6 % (36.0-46.0); HGB 12.7 g/dL (11.2-15.7); Immature Grans % 0.2; Lymphocytes % 25.5; MCH 29.7 pg (27.0-33.0); MCHC 32.9 % (32.0-36.0); MCV 90.2 fL (80-95); MPV 10.1 fL (8.0-11.0); Monocytes % 9.7; Neutrophils % 57.4; Platelet Count 296 10^3/uL (130-400); RBC 4.28 10^6/uL (3.93-5.22); RDW 14.4 % (11.7-14.6); RDW-SD 47.4 fL; WBC 5.17 10^3/uL (4.4-10.8)
[2020-04-04 08:29] LABS: ALT 17 U/L (14-59); AST 15 U/L (15-37); Albumin 3.4 g/dL (3.4-5.0); Alkaline Phosphatase 50 U/L (46-116); Anion Gap 9.8 mmol/L (3-11); BUN 16 mg/dL (7-18); Bilirubin, Total 0.3 mg/dL (0.2-1.0); CO2 25.2 mmol/L (21.0-32.0); CREATININE 1.14 mg/dL (0.55-1.02); Calcium 8.8 mg/dL (8.5-10.1); Chloride 108 mmol/L (98-107); Estimated GFR 45.63 (mL/min/1.73m2); Glucose 117 mg/dL (74-106); Potassium 3.8 mmol/L (3.5-5.1); Sodium 143 mmol/L (136-145); Total Protein 6.6 g/dL (6.4-8.2)
== END 2020-04-05 23:59 | disposition home or self-care (01) ==
LOC: INF 01:59
PROVIDERS: PCP Family Medicine; Visit Provider Internal Medicine Hematology & Oncology
DX: C50.412 Malignant neoplasm of upper-outer quadrant of left female breast (principal); Z17.1 Estrogen receptor negative status [ER-]; C79.51 Secondary malignant neoplasm of bone; Z45.2 Encounter for adjustment and management of vascular access device
CPT/HCPCS: 36591; 80053; 85025

== ENCOUNTER 2020-04-25 01:03 | Outpatient (RCR) | payer MEDICARE, SELFPAY ==
[2020-04-25] MEDS: Normal Saline Flush 10 ML SYR IVP (08:20)
[2020-04-25 08:41] LABS: Abs Immature Grans 0.02 10^3/uL (0.0-0.06); Absolute Basophil Count 0.04 10^3/uL (0.0-0.2); Absolute Eosinophil Count 0.24 10^3/uL (0.0-0.7); Absolute Lymphocyte Count 1.09 10^3/uL (1.2-3.4); Absolute Monocyte Count 0.48 10^3/uL (0.1-0.8); Absolute Neutrophil Count 3.47 10^3/uL (1.2-6.7); Basophils % 0.7; Eosinophils % 4.5; HCT 38.1 % (36.0-46.0); HGB 12.5 g/dL (11.2-15.7); Immature Grans % 0.4; Lymphocytes % 20.4; MCH 29.9 pg (27.0-33.0); MCHC 32.8 % (32.0-36.0); MCV 91.1 fL (80-95); MPV 9.9 fL (8.0-11.0); Nucleated RBC 0 %; Platelet Count 314 10^3/uL (130-400); RBC 4.18 10^6/uL (3.93-5.22); RDW-SD 47.1 fL; WBC 5.34 10^3/uL (4.4-10.8)
[2020-04-25 08:54] LABS: ALT 17 U/L (14-59); AST 16 U/L (15-37); Albumin 3.1 g/dL (3.4-5.0); Alkaline Phosphatase 49 U/L (46-116); BUN 11 mg/dL (7-18); Bilirubin, Total 0.4 mg/dL (0.2-1.0); CREATININE 1.05 mg/dL (0.55-1.02); Calcium 8.5 mg/dL (8.5-10.1); Chloride 106 mmol/L (98-107); Estimated GFR 50.18 (mL/min/1.73m2); Glucose 122 mg/dL (74-106); Potassium 3.8 mmol/L (3.5-5.1); Sodium 142 mmol/L (136-145); Total Protein 6.6 g/dL (6.4-8.2)
== END 2020-05-06 23:59 | disposition home or self-care (01) ==
LOC: INF 01:03
PROVIDERS: Internal Medicine Hematology & Oncology; PCP Family Medicine; Visit Provider Internal Medicine Hematology & Oncology
DX: C50.412 Malignant neoplasm of upper-outer quadrant of left female breast (principal); Z45.2 Encounter for adjustment and management of vascular access device; Z17.1 Estrogen receptor negative status [ER-]; C79.51 Secondary malignant neoplasm of bone
CPT/HCPCS: 36591; 80053; 85025

== ENCOUNTER 2020-05-01 13:01 | Outpatient (REF) | payer MEDICARE, SELFPAY ==
[2020-05-04 01:55] LABS: SARS-CoV-2 RNA Undetected (Undetected); SARS-CoV-2 Specimen Source Nasopharynx
== END 2020-05-01 13:21 ==
LOC: NCHCN 13:01
PROVIDERS: PCP Family Medicine; Visit Provider Nurse Practitioner Family
DX: Z20.828 Contact with and (suspected) exposure to other viral communicable diseases (principal)
CPT/HCPCS: U0003

== ENCOUNTER 2020-05-16 02:46 | Outpatient (RCR) | payer MEDICARE, SELFPAY ==
[2020-05-16 08:26] LABS: Abs Immature Grans 0.02 10^3/uL (0.0-0.06); Absolute Basophil Count 0.06 10^3/uL (0.0-0.2); Absolute Eosinophil Count 0.29 10^3/uL (0.0-0.7); Absolute Lymphocyte Count 1.23 10^3/uL (1.2-3.4); Absolute Monocyte Count 0.62 10^3/uL (0.1-0.8); Absolute Neutrophil Count 3.54 10^3/uL (1.2-6.7); HCT 38.7 % (36.0-46.0); HGB 12.8 g/dL (11.2-15.7); Immature Grans % 0.3; Lymphocytes % 21.4; MCH 29.7 pg (27.0-33.0); MCHC 33.1 % (32.0-36.0); MCV 89.8 fL (80-95); MPV 10.2 fL (8.0-11.0); Monocytes % 10.8; Neutrophils % 61.5; Nucleated RBC 0 %; Platelet Count 305 10^3/uL (130-400); RBC 4.31 10^6/uL (3.93-5.22); RDW 13.9 % (11.7-14.6); RDW-SD 45.5 fL; WBC 5.76 10^3/uL (4.4-10.8)
[2020-05-16 08:36] LABS: ALT 17 U/L (14-59); AST 20 U/L (15-37); Albumin 3.2 g/dL (3.4-5.0); Alkaline Phosphatase 53 U/L (46-116); Anion Gap 10.7 mmol/L (3-11); BUN 13 mg/dL (7-18); Bilirubin, Total 0.4 mg/dL (0.2-1.0); CO2 24.3 mmol/L (21.0-32.0); CREATININE 1.21 mg/dL (0.55-1.02); Calcium 8.5 mg/dL (8.5-10.1); Chloride 106 mmol/L (98-107); Estimated GFR 42.49 (mL/min/1.73m2); Glucose 121 mg/dL (74-106); Potassium 3.6 mmol/L (3.5-5.1); Sodium 141 mmol/L (136-145); Total Protein 6.5 g/dL (6.4-8.2)
[2020-05-16] MEDS: Normal Saline Flush 10 ML SYR IVP (09:10)
== END 2020-06-05 23:59 | disposition home or self-care (01) ==
LOC: INF 02:46
PROVIDERS: PCP Family Medicine; Visit Provider Internal Medicine Hematology & Oncology
DX: C50.412 Malignant neoplasm of upper-outer quadrant of left female breast (principal); Z17.1 Estrogen receptor negative status [ER-]; C79.51 Secondary malignant neoplasm of bone; Z45.2 Encounter for adjustment and management of vascular access device
CPT/HCPCS: 36591; 80053; 85025

== ENCOUNTER 2020-06-12 14:36 | Outpatient (REF) | payer MEDICARE, SELFPAY ==
[2020-06-12 20:11] LABS: TSH (W/Ref FT4) 2.93 uIU/mL (0.36-3.74)
[2020-06-12 20:23] LABS: Hemoglobin A1C 5.6 % (<5.7)
== END 2020-06-12 14:56 ==
LOC: NCHCN 14:36
PROVIDERS: PCP Family Medicine; Visit Provider Family Medicine
DX: E03.9 Hypothyroidism, unspecified (principal); I10 Essential (primary) hypertension; R73.09 Other abnormal glucose; E66.9 Obesity, unspecified
CPT/HCPCS: 83036; 84443

== ENCOUNTER 2020-06-27 03:03 | Outpatient (RCR) | payer MEDICARE, SELFPAY ==
[2020-06-06 08:37] LABS: Abs Immature Grans 0.02 10^3/uL (0.0-0.06); Absolute Basophil Count 0.04 10^3/uL (0.0-0.2); Absolute Eosinophil Count 0.28 10^3/uL (0.0-0.7); Absolute Lymphocyte Count 1.42 10^3/uL (1.2-3.4); Absolute Monocyte Count 0.52 10^3/uL (0.1-0.8); Absolute Neutrophil Count 3.37 10^3/uL (1.2-6.7); Basophils % 0.7; HGB 12.5 g/dL (11.2-15.7); Immature Grans % 0.4; Lymphocytes % 25.1; MCHC 32.9 % (32.0-36.0); MCV 91.1 fL (80-95); MPV 10.3 fL (8.0-11.0); Monocytes % 9.2; Neutrophils % 59.6; Nucleated RBC 0 %; Platelet Count 308 10^3/uL (130-400); RBC 4.17 10^6/uL (3.93-5.22); RDW 14.3 % (11.7-14.6); RDW-SD 47.8 fL; WBC 5.65 10^3/uL (4.4-10.8)
[2020-06-06 08:48] LABS: ALT 18 U/L (14-59); AST 16 U/L (15-37); Albumin 3.3 g/dL (3.4-5.0); Alkaline Phosphatase 54 U/L (46-116); Anion Gap 8.2 mmol/L (3-11); BUN 16 mg/dL (7-18); Bilirubin, Total 0.4 mg/dL (0.2-1.0); CO2 26.8 mmol/L (21.0-32.0); Calcium 9.1 mg/dL (8.5-10.1); Chloride 105 mmol/L (98-107); Estimated GFR 47.43 (mL/min/1.73m2); Glucose 134 mg/dL (74-106); Potassium 3.8 mmol/L (3.5-5.1); Sodium 140 mmol/L (136-145); Total Protein 6.5 g/dL (6.4-8.2)
[2020-06-06] MEDS: Normal Saline Flush 10 ML SYR IVP (09:20)
[2020-06-27] MEDS: Normal Saline Flush 10 ML SYR IVP (12:41)
[2020-06-27 12:54] LABS: Abs Immature Grans 0.02 10^3/uL (0.0-0.06); Absolute Basophil Count 0.04 10^3/uL (0.0-0.2); Absolute Eosinophil Count 0.19 10^3/uL (0.0-0.7); Absolute Lymphocyte Count 1.53 10^3/uL (1.2-3.4); Absolute Monocyte Count 0.54 10^3/uL (0.1-0.8); Absolute Neutrophil Count 4.55 10^3/uL (1.2-6.7); Basophils % 0.6; Eosinophils % 2.8; HCT 39.2 % (36.0-46.0); HGB 12.8 g/dL (11.2-15.7); Immature Grans % 0.3; Lymphocytes % 22.3; MCH 29.7 pg (27.0-33.0); MCHC 32.7 % (32.0-36.0); MPV 10.1 fL (8.0-11.0); Monocytes % 7.9; Neutrophils % 66.1; Nucleated RBC 0 %; Platelet Count 307 10^3/uL (130-400); RBC 4.31 10^6/uL (3.93-5.22); RDW 14.2 % (11.7-14.6); RDW-SD 47.5 fL; WBC 6.87 10^3/uL (4.4-10.8)
[2020-06-27 13:13] LABS: ALT 16 U/L (14-59); AST 17 U/L (15-37); Albumin 3.4 g/dL (3.4-5.0); Alkaline Phosphatase 53 U/L (46-116); Anion Gap 6.3 mmol/L (3-11); BUN 12 mg/dL (7-18); Bilirubin, Total 0.4 mg/dL (0.2-1.0); CO2 26.7 mmol/L (21.0-32.0); CREATININE 1.01 mg/dL (0.55-1.02); Calcium 8.9 mg/dL (8.5-10.1); Chloride 108 mmol/L (98-107); Estimated GFR 52.35 (mL/min/1.73m2); Glucose 93 mg/dL (74-106); Sodium 141 mmol/L (136-145); Total Protein 6.8 g/dL (6.4-8.2)
== END 2020-07-06 23:59 | disposition home or self-care (01) ==
LOC: INF 03:03
PROVIDERS: PCP Family Medicine; Visit Provider Internal Medicine Hematology & Oncology
DX: C79.51 Secondary malignant neoplasm of bone (principal); C50.412 Malignant neoplasm of upper-outer quadrant of left female breast; Z17.1 Estrogen receptor negative status [ER-]; Z45.2 Encounter for adjustment and management of vascular access device
CPT/HCPCS: 36591; 80053; 85025

== ENCOUNTER → 2020-07-08 10:23 | Outpatient (BNVA) | payer MEDICARE, SELFPAY | PROVIDERS: PCP Family Medicine; Referring Provider Family Medicine; Visit Provider Internal Medicine Cardiovascular Disease | DX: I49.3 Ventricular premature depolarization (principal); I10 Essential (primary) hypertension; Z79.899 Other long term (current) drug therapy; C50.912 Malignant neoplasm of unspecified site of left female breast | CPT/HCPCS: 99213 ==

== ENCOUNTER 2020-07-10 01:17 | Outpatient (CLI) | payer MEDICARE, SELFPAY ==
--- NOTE | 2020-07-10 10:12 | DI.US_ITS ---
APPROVED REPORT EXAM: Comprehensive 2D, Doppler, and color-flow Echocardiogram Casing Runner: Blanca Portillo RDCS (AE) Indications: Lt Breast Cancer, Adverse effect immunosuppressive drugs Other Information Study Quality: Adequate Conclusion Left Ventricle : The left ventricle is normal size. The left ventricular systolic function is normal. The left ventricular ejection fraction is within the normal range. There is normal left ventricular wall thickness. There is normal LV segmental wall motion. The left ventricular diastolic function is normal. LVEF is 57%. Average global longitudinal strain is -16%. Right Ventricle : The right ventricle is normal size. The right ventricular systolic function is norm al. The RVSP is 26.7 mmHg. Atria : The left atrium size is normal. The right atrium size is normal. Valves: There are no hemodynamically significant valvular lesions. Great Vessels : The aortic root is normal in size. The ascending aorta is mildly dilated. Aortic arch is normal in caliber. IVC is normal in size and collapses >50% with inspiration. Compared to study from December 2019, there is no significant change in ejection fraction or global long itudinal strain. Wall motion Left Ventricle The left ventricle is normal size. The left ventricular systolic function is normal. The left ventric ular ejection fraction is within the normal range. There is normal left ventricular wall thickness. T here is normal LV segmental wall motion. The left ventricular diastolic function is normal. There is no ventricular septal defect visualized. LVEF is 57%. Average global longitudinal strain is -16%. Right Ventricle The right ventricle is normal size. The right ventricular systolic function is normal. The RVSP is 26 .7 mmHg. Atria The left atrium size is normal. The right atrium size is normal. The interatrial septum is intact wit h no evidence for an atrial septal defect. Aortic Valve The aortic valve is normal in structure. Aortic valve is trileaflet. There is no aortic valvular sten osis. No aortic regurgitation is present. Mitral Valve Mild mitral annular calcification. No evidence of mitral valve stenosis. Trace mitral regurgitation. Tricuspid Valve The tricuspid valve is normal in structure. There is no tricuspid valve stenosis. Trace to mild tricu spid regurgitation. Pulmonic Valve The pulmonary valve is normal in structure. There is no pulmonic valvular stenosis. Trace pulmonic re gurgitation. Great Vessels The aortic root is normal in size. The ascending aorta is mildly dilated. Aortic arch is normal in ca liber. IVC is normal in size and collapses >50% with inspiration. Pericardium There is no pericardial effusion. 2D Dimensions IVSD d PLAX 0.96 cm F: 0.6-1.0 LV Vol A2C d MOD 99.4 mL LVPW d PLAX 0.97 cm F: 0.6 - 1.0 LV Vol A4C d MOD 75.6 mL LVID d PLAX 4.65 cm F: 3.8 - 5.2 LA vol/ BSA A2C s A-L 32.3 mL/m2 LVDs 3.15 cm F: 2.2 - 3.5 LA vol/ BSA A4C s A-L 31.1 mL/m2 Ao Root d 2.68 cm F: 2.7 - 3.3 LA Vol/ BSA Biplane s A-L 31.8 mL/m2 RA Area A4C 12.23 cm2 LA Area A4C s MOD 19.13 cm2 RA Vol/ BSA A4C s A-L 14.2 mL/m2 LA Area A2C s MOD 19.58 cm2 Ao Asc Diam d 3.51 cm F: 2.3 - 3.1 LV EF A4C MOD 57.5 % LV EF Teichholz 59.5 % LV EF A2C MOD 57.3 % LVEF (Chinchilla's) 56.45 % F: 54 - 74 LV EF Biplane MOD 56.4 % LV Volume 68.20 mL F: 46 - 106 SV 50.54 mL LV Volume Index 35.70 mL/m2 F: 29 - 61 SV Index 26.44 mL/m2 LV Vol Biplane MOD 89.5 mL FS 31.50 % M-Mode TAPSE 2.03 cm (M/F) >1.7 LV Diastology MV E' medial 0.065 (>0.07 m/s) E/A Ratio 0.7 LV E/e MED 9.50 (<14) MV E Vmax 0.62 (0.4-1.3 m/s) MV E' lateral 0.101 (>0.1 m/s) MV A Vmax 0.85 (0.4-1.3 m/s) LV E/e LAT 6.05 (<14) MV E/A Ratio 0.71 MV E/E' medial 9.53 MV E/E' lateral 6.08 Aortic Valve LVOT Area 2.70 cm2 AoV Area Vmax 1.97 cm2 LVOT Vmax 1.03 m/s AoV Area/ BSA (Vmax) 1.03 cm2/m2 LVOT Mean David. 0.68 m/s AMY Mean David. 1.76 cm2 LVOT Peak Grad 4.3 mmHg AMY Mean David. Index 0.92 cm2/m2 LVOT Mean Grad 2.2 mmHg LVOT VTI 0.233 m LVOT Diam s 1.85 cm AoV Vmax 1.42 m/s Velocity Ratio 0.72 AoV Mean David. 1.04 m/s AoV Peak Grad 8.0 mmHg LVOT SV 62.70 mL AoV Mean Grad 4.6 mmHg AoV VTI 0.302 m AoV Area VTI 2.08 cm2 AoV Area/ BSA (VTI) 1.09 cm/m2 Mitral Valve MV DT 327 (160-240 msec) MV PHT 95 msec MV Area PHT 2.32 cm2 MV VTI 0.336 m MV VTI Annulus 0.341 m MV Area VTI 1.89 (4.0-6.0 cm2) Pulmonary Valve PV Vmax 1.14 (0.5-1.5 m/s) RVOT Peak Gr. 4.43 mmHg PV Peak Grad 5.2 mmHg RVOT Mean Gr. 2.00 mmHg PV Mean Grad 2.7 mmHg RVOT VTI 0.205 m PV VTI 0.234 m RVOT Vmax 1.05 m/s Tricuspid Valve TR Peak Grad 23.7 mmHg TR Vmax 2.43 m/s RA Pressure 3.00 mmHg RVSP (TR) 26.7 mmHg
== END 2020-07-10 01:37 ==
PROVIDERS: PCP Family Medicine; Visit Provider Nurse Practitioner Family
DX: T45.1X5D Adverse effect of antineoplastic and immunosuppressive drugs, subsequent encounter (principal); I77.810 Thoracic aortic ectasia; I49.3 Ventricular premature depolarization
CPT/HCPCS: 93306

== ENCOUNTER 2020-07-17 01:55 | Outpatient (CLI) | payer MEDICARE, SELFPAY ==
[2020-07-17] MEDS: Omnipaque 350 MG/ML 50 ML BTL PO (09:25)
[2020-07-17] MEDS: Breeza Beverage 473 ML BTL PO (09:25)
[2020-07-17] MEDS: Omnipaque 350 MG/ML 100 ML BTL IJ (10:42)
[2020-07-17] MEDS: Normal Saline - Diluent 50 ML VIAL IV (10:43)
--- NOTE | 2020-07-17 10:45 | DI.CT_ITS ---
EXAM: CT CHEST/ABD/PEL W CLINICAL HISTORY: H/O LT BREAST CA,C50.412,Z17.1,BONY METS,C79.51 TECHNIQUE: Imaging Protocol: Axial computed tomography images with coronal and sagittal reformatted images were created and reviewed CONTRAST MATERIAL: Intravenous: Omnipaque 350 Contrast volume:100 mL Oral: Yes COMPARISON: CT CHEST/ABD/PELVIS WO W CONTRA from 09/12/2015 FINDINGS: CHEST: Tracheobronchial tree: Patent where visualized. Mediastinum and Fiorella: No dominant adenopathy or fluid collection. Moderate hiatal hernia. Unremarkab le thyroid gland. Pulmonary parenchyma: No consolidation or dominant measurable mass. Centrilobular emphysema. Pleura: No effusion or pneumothorax. Heart: Mild cardiomegaly. Mild coronary artery calcification. No significant pericardial effusion. Aorta: Thoracic aorta non-dilated. Atherosclerosis. Lymph nodes: Within normal limits. Bones:Degenerative changes. Diffuse sclerotic metastatic disease. Tubes, Catheters, and Lines: Indwelling Mxxled-G-Zvjh catheter. The tip is in good position in the s uperior vena cava. Soft tissues: Unremarkable. ABDOMEN: Liver: Normal density. No measurable mass. Portal, Superior Mesenteric, and Splenic Veins: Unremarkable. Gallbladder and Biliary Tract: No radiodense calculus or dilation. Pancreas: Normal density, no abnormal calcifications or inflammatory process. Spleen: Normal. Adrenals: There is a stable left adrenal nodule. The right adrenal gland is unremarkable. Kidneys: Normal size, contour and axis. No radiodense stones or obstructive uropathy. No masses seen. Abdominal Aorta: Abdominal portion non-dilated. Atherosclerosis. Bowel: No obstruction or bowel wall thickening. Appendix is unremarkable. Colonic diverticulosis but no evidence of acute diverticulitis. There is a moderate size hiatal hernia. Peritoneal Cavity: No ascites, collection or mesenteric inflammatory response. Lymph Nodes: Within normal limits. Bones: Bilateral total hip replacements. Old healed fracture involving the inferior left pubic ramus . Diffuse sclerotic metastatic disease. Soft Tissues: Unremarkable. PELVIS: Bladder: Largely obscured by the artifact from the patient's hip prostheses. Reproductive Organs: Enlarged uterus likely reflecting for uterine fibroids. Lymph Nodes: Within normal limits. Bones: Diffuse sclerotic metastatic disease. Degenerative changes in the lumbar spine. IMPRESSION: 1. Diffuse sclerotic metastatic disease. Bone scan should be considered for further evaluation. 2. No other evidence of abdominal or pelvic metastatic disease. 3. No evidence of thoracic metastatic disease. RADIATION DOSE DELIVERED: 2,030.57mGy.cm Total DLP DATA REPOSITORY: All CT scans at this facility are submitted to the National Radiology Data Registry (NRDR) Dose Index Registry (DIR) with the [employer] (ACR). RADIATION OPTIMIZATION: All CT scans at this facility use at least one of these dose optimization te chniques: automated exposure control; mA and/or kV adjustment per patient size (includes targeted exa ms where dose is matched to clinical indication); or iterative reconstruction.
== END 2020-07-17 02:15 ==
PROVIDERS: PCP Family Medicine; Visit Provider Nurse Practitioner Family
DX: C50.412 Malignant neoplasm of upper-outer quadrant of left female breast (principal); Z17.1 Estrogen receptor negative status [ER-]; C79.51 Secondary malignant neoplasm of bone
CPT/HCPCS: 36591; 74177; 80053; 71260; 85025; J3490; Q9967

== ENCOUNTER 2020-07-17 02:06 | Outpatient (RCR) | payer MEDICARE, SELFPAY ==
[2020-07-17] MEDS: Normal Saline Flush 10 ML SYR IVP (09:14)
[2020-07-17 09:32] LABS: Abs Immature Grans 0.01 10^3/uL (0.0-0.06); Absolute Basophil Count 0.03 10^3/uL (0.0-0.2); Absolute Eosinophil Count 0.35 10^3/uL (0.0-0.7); Absolute Lymphocyte Count 1.37 10^3/uL (1.2-3.4); Absolute Neutrophil Count 3.15 10^3/uL (1.2-6.7); Basophils % 0.6; Eosinophils % 6.5; HCT 38.7 % (36.0-46.0); HGB 12.8 g/dL (11.2-15.7); Immature Grans % 0.2; Lymphocytes % 25.3; MCH 29.5 pg (27.0-33.0); MCHC 33.1 % (32.0-36.0); MCV 89.2 fL (80-95); Monocytes % 9.2; Neutrophils % 58.2; Nucleated RBC 0 %; Platelet Count 275 10^3/uL (130-400); RBC 4.34 10^6/uL (3.93-5.22); RDW 14.6 % (11.7-14.6); RDW-SD 47.8 fL; WBC 5.41 10^3/uL (4.4-10.8)
[2020-07-17 09:44] LABS: ALT 14 U/L (14-59); AST 13 U/L (15-37); Albumin 3.4 g/dL (3.4-5.0); Alkaline Phosphatase 47 U/L (46-116); Anion Gap 10.3 mmol/L (3-11); BUN 18 mg/dL (7-18); Bilirubin, Total 0.4 mg/dL (0.2-1.0); CO2 23.7 mmol/L (21.0-32.0); CREATININE 1.07 mg/dL (0.55-1.02); Calcium 8.7 mg/dL (8.5-10.1); Chloride 109 mmol/L (98-107); Estimated GFR 48.97 (mL/min/1.73m2); Glucose 104 mg/dL (74-106); Potassium 3.9 mmol/L (3.5-5.1); Sodium 143 mmol/L (136-145); Total Protein 6.8 g/dL (6.4-8.2)
== END 2020-08-05 23:59 | disposition home or self-care (01) ==
LOC: INF 02:06
PROVIDERS: PCP Family Medicine; Visit Provider Internal Medicine Hematology & Oncology
DX: C50.412 Malignant neoplasm of upper-outer quadrant of left female breast (principal); Z45.2 Encounter for adjustment and management of vascular access device; Z17.1 Estrogen receptor negative status [ER-]; C79.51 Secondary malignant neoplasm of bone
CPT/HCPCS: 36591; 80053; 85025

== ENCOUNTER 2020-08-29 00:49 | Outpatient (RCR) | payer MEDICARE, SELFPAY ==
[2020-08-08 12:50] LABS: Abs Immature Grans 0.02 10^3/uL (0.0-0.06); Absolute Basophil Count 0.04 10^3/uL (0.0-0.2); Absolute Eosinophil Count 0.27 10^3/uL (0.0-0.7); Absolute Monocyte Count 0.59 10^3/uL (0.1-0.8); Absolute Neutrophil Count 4.29 10^3/uL (1.2-6.7); Basophils % 0.6; HCT 39.1 % (36.0-46.0); HGB 12.6 g/dL (11.2-15.7); Immature Grans % 0.3; Lymphocytes % 22.4; MCH 29.6 pg (27.0-33.0); MCHC 32.2 % (32.0-36.0); Monocytes % 8.8; Neutrophils % 63.9; Nucleated RBC 0 %; Platelet Count 294 10^3/uL (130-400); RBC 4.25 10^6/uL (3.93-5.22); RDW 14.6 % (11.7-14.6); RDW-SD 49.3 fL; WBC 6.71 10^3/uL (4.4-10.8)
[2020-08-08 13:07] LABS: ALT 20 U/L (14-59); AST 25 U/L (15-37); Albumin 3.5 g/dL (3.4-5.0); Alkaline Phosphatase 49 U/L (46-116); Anion Gap 8.8 mmol/L (3-11); BUN 20 mg/dL (7-18); Bilirubin, Total 0.4 mg/dL (0.2-1.0); CO2 23.2 mmol/L (21.0-32.0); Calcium 8.7 mg/dL (8.5-10.1); Chloride 109 mmol/L (98-107); Estimated GFR 47.43 (mL/min/1.73m2); Glucose 97 mg/dL (74-106); Potassium 4.2 mmol/L (3.5-5.1); Sodium 141 mmol/L (136-145); Total Protein 6.9 g/dL (6.4-8.2)
[2020-08-08] MEDS: Normal Saline Flush 10 ML SYR IVP (15:13)
[2020-08-29] MEDS: Normal Saline Flush 10 ML SYR IVP (10:08)
[2020-08-29 10:13] LABS: Abs Immature Grans 0.01 10^3/uL (0.0-0.06); Absolute Basophil Count 0.03 10^3/uL (0.0-0.2); Absolute Eosinophil Count 0.24 10^3/uL (0.0-0.7); Absolute Lymphocyte Count 1.08 10^3/uL (1.2-3.4); Absolute Monocyte Count 0.36 10^3/uL (0.1-0.8); Absolute Neutrophil Count 3.35 10^3/uL (1.2-6.7); Basophils % 0.6; Eosinophils % 4.7; HCT 37.5 % (36.0-46.0); HGB 12.2 g/dL (11.2-15.7); Immature Grans % 0.2; Lymphocytes % 21.3; MCH 29.9 pg (27.0-33.0); MCHC 32.5 % (32.0-36.0); MCV 91.9 fL (80-95); MPV 9.8 fL (8.0-11.0); Monocytes % 7.1; Neutrophils % 66.1; Nucleated RBC 0 %; Platelet Count 280 10^3/uL (130-400); RBC 4.08 10^6/uL (3.93-5.22); RDW 14.5 % (11.7-14.6); RDW-SD 49.1 fL; WBC 5.07 10^3/uL (4.4-10.8)
[2020-08-29 10:26] LABS: ALT 17 U/L (14-59); AST 17 U/L (15-37); Albumin 3.2 g/dL (3.4-5.0); Alkaline Phosphatase 48 U/L (46-116); BUN 16 mg/dL (7-18); Bilirubin, Total 0.4 mg/dL (0.2-1.0); CREATININE 1.21 mg/dL (0.55-1.02); Calcium 8.3 mg/dL (8.5-10.1); Chloride 107 mmol/L (98-107); Estimated GFR 42.49 (mL/min/1.73m2); Glucose 136 mg/dL (74-106); Potassium 3.6 mmol/L (3.5-5.1); Sodium 141 mmol/L (136-145); Total Protein 6.5 g/dL (6.4-8.2)
== END 2020-09-05 23:59 | disposition home or self-care (01) ==
LOC: INF 00:49
PROVIDERS: PCP Family Medicine; Visit Provider Internal Medicine Hematology & Oncology
DX: C50.412 Malignant neoplasm of upper-outer quadrant of left female breast (principal); Z17.1 Estrogen receptor negative status [ER-]; Z45.2 Encounter for adjustment and management of vascular access device; C79.51 Secondary malignant neoplasm of bone
CPT/HCPCS: 36591; 80053; 85025

== ENCOUNTER 2020-09-19 02:16 | Outpatient (RCR) | payer MEDICARE, SELFPAY ==
[2020-09-19 12:23] LABS: Abs Immature Grans 0.02 10^3/uL (0.0-0.06); Absolute Basophil Count 0.05 10^3/uL (0.0-0.2); Absolute Eosinophil Count 0.16 10^3/uL (0.0-0.7); Absolute Lymphocyte Count 1.11 10^3/uL (1.2-3.4); Absolute Monocyte Count 0.71 10^3/uL (0.1-0.8); Absolute Neutrophil Count 5.64 10^3/uL (1.2-6.7); Basophils % 0.7; Eosinophils % 2.1; HCT 37.7 % (36.0-46.0); HGB 12.5 g/dL (11.2-15.7); Immature Grans % 0.3; Lymphocytes % 14.4; MCH 29.6 pg (27.0-33.0); MCHC 33.2 % (32.0-36.0); MCV 89.1 fL (80-95); MPV 10.3 fL (8.0-11.0); Monocytes % 9.2; Neutrophils % 73.3; Nucleated RBC 0 %; Platelet Count 273 10^3/uL (130-400); RBC 4.23 10^6/uL (3.93-5.22); RDW 14.2 % (11.7-14.6); RDW-SD 45.9 fL; WBC 7.69 10^3/uL (4.4-10.8)
[2020-09-19] MEDS: Normal Saline Flush 10 ML SYR IVP (12:27)
[2020-09-19 12:44] LABS: ALT 15 U/L (14-59); AST 16 U/L (15-37); Albumin 3.3 g/dL (3.4-5.0); Alkaline Phosphatase 53 U/L (46-116); BUN 14 mg/dL (7-18); Bilirubin, Total 0.4 mg/dL (0.2-1.0); CREATININE 1.05 mg/dL (0.55-1.02); Calcium 9.1 mg/dL (8.5-10.1); Chloride 107 mmol/L (98-107); Estimated GFR 50.05 (mL/min/1.73m2); Glucose 110 mg/dL (74-106); Potassium 3.7 mmol/L (3.5-5.1); Sodium 140 mmol/L (136-145); Total Protein 6.8 g/dL (6.4-8.2)
== END 2020-10-06 23:59 | disposition home or self-care (01) ==
LOC: INF 02:16
PROVIDERS: PCP Family Medicine; Visit Provider Internal Medicine Hematology & Oncology
DX: C50.412 Malignant neoplasm of upper-outer quadrant of left female breast (principal); Z45.2 Encounter for adjustment and management of vascular access device; Z17.1 Estrogen receptor negative status [ER-]
CPT/HCPCS: 36591; 80053; 85025

== ENCOUNTER 2020-10-30 01:23 | Outpatient (CLI) | payer MEDICARE, SELFPAY ==
--- NOTE | 2020-10-30 | DI.NM_ITS ---
EXAM: NM BONE SCAN WHOLE BODY GRP CLINICAL HISTORY: BONY METS, C79.51,LT BREAST CA,C50.412,Z17.1,ASSESS TREATMENT RESPONSE. Rectal TECHNIQUE: Injected Dose: 25.6 mCi Tc-99m MDP Delayed Images: 2-3 hours. COMPARISON: [facility] BONE SCAN WHOLE BODY GRP from 08/25/[address] CHEST/ABD/PEL W from 07/17/2020 FINDINGS: There photopenic zones of both hips consistent with bilateral prostheses. Mild uptake around the hip s is more consistent with the presence of prostheses than actual metastatic disease. No new signific ant abnormal uptake seen in pelvis. Is significant focus of increased uptake seen in the right side of the midthoracic spine which was pr eviously present and is best seen on the posterior images. Two levels above this is a small focus of increasing uptake. No abnormal uptake seen in the lumbar spine. Minimal focal uptake seen in the l eft side of the cervical spine is most probably degenerative. No abnormal uptake seen in the skull. On the frontal view there is focus of increased uptake seen anteromedially on the right side, slightl y more prominent than previous. This may be related to show sign through from the finding at this [place] on the right side of the thoracic spinal column. No new no obvious new significant rib uptake. There is a tiny focus of increased uptake below the left knee at the anterior tibial tubercle level. This may be significant as was not previously present. Uptake in both feet is consistent with degen erative change IMPRESSION: 1. Mild change when compared to the previous study. Not truly convincing for advancing metastatic os seous disease. 2. Recommend plain films of the left knee given the focus of increased activity at the level of what appears to be the anterior tibial tubercle on today's nuclear study. DATA REPOSITORY:
== END 2020-10-30 01:24 ==
PROVIDERS: PCP Family Medicine; Visit Provider Nurse Practitioner Family
DX: C79.51 Secondary malignant neoplasm of bone (principal); C50.412 Malignant neoplasm of upper-outer quadrant of left female breast; Z17.1 Estrogen receptor negative status [ER-]
CPT/HCPCS: 78306

== ENCOUNTER 2020-10-31 02:40 | Outpatient (RCR) | payer MEDICARE, SELFPAY ==
[2020-10-10] MEDS: Normal Saline Flush 10 ML SYR IVP (12:39)
[2020-10-10 12:42] LABS: Abs Immature Grans 0.02 10^3/uL (0.0-0.06); Absolute Basophil Count 0.05 10^3/uL (0.0-0.2); Absolute Eosinophil Count 0.22 10^3/uL (0.0-0.7); Absolute Lymphocyte Count 1.22 10^3/uL (1.2-3.4); Absolute Monocyte Count 0.65 10^3/uL (0.1-0.8); Absolute Neutrophil Count 4.47 10^3/uL (1.2-6.7); Basophils % 0.8; Eosinophils % 3.3; HCT 39.9 % (36.0-46.0); HGB 13.2 g/dL (11.2-15.7); Immature Grans % 0.3; Lymphocytes % 18.4; MCH 30.3 pg (27.0-33.0); MCHC 33.1 % (32.0-36.0); MCV 91.7 fL (80-95); MPV 10.3 fL (8.0-11.0); Monocytes % 9.8; Neutrophils % 67.4; Nucleated RBC 0 %; Platelet Count 300 10^3/uL (130-400); RBC 4.35 10^6/uL (3.93-5.22); RDW 14.1 % (11.7-14.6); RDW-SD 47.8 fL; WBC 6.63 10^3/uL (4.4-10.8)
[2020-10-10 13:02] LABS: ALT 14 U/L (14-59); AST 13 U/L (15-37); Albumin 3.3 g/dL (3.4-5.0); Alkaline Phosphatase 53 U/L (46-116); Anion Gap 9.7 mmol/L (3-11); BUN 16 mg/dL (7-18); Bilirubin, Total 0.4 mg/dL (0.2-1.0); CO2 25.3 mmol/L (21.0-32.0); CREATININE 1.1 mg/dL (0.55-1.02); Calcium 9.2 mg/dL (8.5-10.1); Chloride 108 mmol/L (98-107); Estimated GFR 47.43 (mL/min/1.73m2); Glucose 99 mg/dL (74-106); Sodium 143 mmol/L (136-145); Total Protein 6.9 g/dL (6.4-8.2)
[2020-10-31] MEDS: Normal Saline Flush 10 ML SYR IVP (10:38)
[2020-10-31 10:42] LABS: Abs Immature Grans 0.02 10^3/uL (0.0-0.06); Absolute Basophil Count 0.06 10^3/uL (0.0-0.2); Absolute Eosinophil Count 0.25 10^3/uL (0.0-0.7); Absolute Lymphocyte Count 1.11 10^3/uL (1.2-3.4); Absolute Neutrophil Count 3.98 10^3/uL (1.2-6.7); Eosinophils % 4.2; HCT 38.6 % (36.0-46.0); HGB 12.6 g/dL (11.2-15.7); Immature Grans % 0.3; Lymphocytes % 18.8; MCH 30.1 pg (27.0-33.0); MCHC 32.6 % (32.0-36.0); MCV 92.3 fL (80-95); MPV 10.2 fL (8.0-11.0); Monocytes % 8.4; Neutrophils % 67.3; Nucleated RBC 0 %; Platelet Count 274 10^3/uL (130-400); RBC 4.18 10^6/uL (3.93-5.22); RDW 14.6 % (11.7-14.6); RDW-SD 49.5 fL; WBC 5.92 10^3/uL (4.4-10.8)
[2020-10-31 11:04] LABS: ALT 19 U/L (14-59); AST 15 U/L (15-37); Albumin 3.2 g/dL (3.4-5.0); Alkaline Phosphatase 52 U/L (46-116); Anion Gap 9.4 mmol/L (3-11); BUN 15 mg/dL (7-18); Bilirubin, Total 0.4 mg/dL (0.2-1.0); CO2 23.6 mmol/L (21.0-32.0); CREATININE 1.2 mg/dL (0.55-1.02); Calcium 8.6 mg/dL (8.5-10.1); Chloride 108 mmol/L (98-107); Glucose 113 mg/dL (74-106); Potassium 3.9 mmol/L (3.5-5.1); Sodium 141 mmol/L (136-145); Total Protein 6.5 g/dL (6.4-8.2)
== END 2020-11-03 23:59 | disposition home or self-care (01) ==
LOC: INF 02:40
PROVIDERS: PCP Family Medicine; Visit Provider Internal Medicine Hematology & Oncology
DX: C50.412 Malignant neoplasm of upper-outer quadrant of left female breast (principal); Z17.1 Estrogen receptor negative status [ER-]; Z45.2 Encounter for adjustment and management of vascular access device
CPT/HCPCS: 36591; 80053; 85025

== ENCOUNTER 2020-11-21 02:08 | Outpatient (RCR) | payer MEDICARE, SELFPAY ==
[2020-11-21] MEDS: Normal Saline Flush 10 ML SYR IVP (11:09)
[2020-11-21 11:50] LABS: Abs Immature Grans 0.01 10^3/uL (0.0-0.06); Absolute Basophil Count 0.06 10^3/uL (0.0-0.2); Absolute Eosinophil Count 0.27 10^3/uL (0.0-0.7); Absolute Lymphocyte Count 1.42 10^3/uL (1.2-3.4); Absolute Monocyte Count 0.55 10^3/uL (0.1-0.8); Absolute Neutrophil Count 4.48 10^3/uL (1.2-6.7); Basophils % 0.9; HCT 39.4 % (36.0-46.0); HGB 12.9 g/dL (11.2-15.7); Immature Grans % 0.1; Lymphocytes % 20.9; MCHC 32.7 % (32.0-36.0); MCV 91.6 fL (80-95); MPV 10.1 fL (8.0-11.0); Monocytes % 8.1; Nucleated RBC 0 %; Platelet Count 331 10^3/uL (130-400); RDW 14.4 % (11.7-14.6); RDW-SD 48.5 fL; WBC 6.79 10^3/uL (4.4-10.8)
[2020-11-21 12:01] LABS: ALT 18 U/L (14-59); AST 16 U/L (15-37); Albumin 3.3 g/dL (3.4-5.0); Alkaline Phosphatase 57 U/L (46-116); Anion Gap 8.8 mmol/L (3-11); BUN 13 mg/dL (7-18); Bilirubin, Total 0.3 mg/dL (0.2-1.0); CO2 25.2 mmol/L (21.0-32.0); CREATININE 1.1 mg/dL (0.55-1.02); Calcium 8.7 mg/dL (8.5-10.1); Chloride 109 mmol/L (98-107); Estimated GFR 47.43 (mL/min/1.73m2); Glucose 95 mg/dL (74-106); Potassium 4.2 mmol/L (3.5-5.1); Sodium 143 mmol/L (136-145); Total Protein 6.9 g/dL (6.4-8.2)
== END 2020-12-04 23:59 | disposition home or self-care (01) ==
LOC: INF 02:08
PROVIDERS: PCP Family Medicine; Visit Provider Internal Medicine Hematology & Oncology
DX: C50.412 Malignant neoplasm of upper-outer quadrant of left female breast (principal); Z45.2 Encounter for adjustment and management of vascular access device; Z17.1 Estrogen receptor negative status [ER-]
CPT/HCPCS: 36591; 80053; 85025

== ENCOUNTER 2020-11-26 01:49 | Outpatient (CLI) | payer MEDICARE, SELFPAY ==
--- NOTE | 2020-11-26 | DI.MRI_ITS ---
EXAM: MR BRAIN WO/W CLINICAL HISTORY: LT BREAST CA,C50.412,Z17.1,UNEXPLAINED FALLS,C79.51,GAIT INSTABILITY TECHNIQUE: Multiplanar multisequence MRI of the brain was performed. CONTRAST MATERIAL: IV Contrast: 19 ML of Dotarem contrast administered. COMPARISON: No exams were available for comparison FINDINGS: VENTRICLES AND EXTRA AXIAL SPACES: Normal in size and morphology for the patient's age. HEMORRHAGE: None. CEREBRAL PARENCHYMA: No focus of restricted diffusion to suggest acute infarct. There are few areas of hyperintense signal on the T2 weighted images in the white matter likely reflecting small vessel i schemic disease. MIDLINE SHIFT: None. BRAINSTEM/CEREBELLUM: Normal. CALVARIUM: Normal. ENHANCEMENT: There is a 1.8 cm transverse by 2.5 cm AP by 2.8 cm craniocaudad mass centered in the ri ght caudate nucleus with mild mass effect on the adjacent right lateral ventricle. There is surround ing edema present. There is also cortical enhancement involving the left parietal lobe posteriorly w ith associated edema. The enhancing area measures 2.5 x 1.4 cm. There are several tiny flow voids i n this region. VISUALIZED PARANASAL SINUSES/MASTOIDS: Clear. [place]: Normal flow void. PITUITARY GLAND: Unremarkable. OTHER FINDINGS: IMPRESSION: 1. 1.8 x 2.5 x 2.8 cm enhancing mass in the right caudate nucleus. Primary diagnostic concern is for metastatic focus. Primary intracranial neoplasm may also be considered. 2. Area of cortical enhancement involving the left parietal lobe with associated edema. Vascular mal formation or metastatic disease should be considered. 3. Diffusion-weighted images show no evidence of an acute infarct. 4. Age-related cerebral atrophy and small vessel ischemic disease. DATA REPOSITORY:
[2020-11-26] MEDS: Normal Saline Flush 10 ML SYR IVP (10:45)
[2020-11-26] MEDS: Gadoterate meglumine 20 ML VIAL 19 ML IVP (10:47)
== END 2020-11-26 02:09 ==
PROVIDERS: PCP Family Medicine; Visit Provider Internal Medicine Hematology & Oncology
DX: C79.51 Secondary malignant neoplasm of bone (principal); C50.412 Malignant neoplasm of upper-outer quadrant of left female breast; R26.89 Other abnormalities of gait and mobility; R90.89 Other abnormal findings on diagnostic imaging of central nervous system; G93.6 Cerebral edema
CPT/HCPCS: 70553

== ENCOUNTER 2020-12-19 01:57 | Outpatient (CLI) | payer MEDICARE, SELFPAY ==
--- NOTE | 2020-12-19 | DI.CT_ITS ---
EXAM: CT CHEST/ABD/PEL W CLINICAL HISTORY: LT BREAST CA,C50.41,Z17.1,BONY METS,C79.51. TECHNIQUE: Imaging Protocol: Axial computed tomography images with coronal and sagittal reformatted images were created and reviewed CONTRAST MATERIAL: Intravenous: Omnipaque 350 Contrast volume:100 ml Oral: None COMPARISON: CT CHEST/ABD/PELVIS WO W CONTRA from 09/12/[address] CHEST/ABD/PEL W from 07/17/2020 FINDINGS: CHEST: LUNGS: There are no new significant lung nodules. No confluent infiltrates. No pleural effusions. No significant findings in the trachea and mainstem bronchi. MEDIASTINUM: There is no hilar nor mediastinal adenopathy. No subcarinal adenopathy.No axillary adeno guilherme. CARDIAC: Heart size is normal. There is very mild thickening of the anterior pericardium which may b e a small pericardial effusion..Caliber of the thoracic aorta is within normal limits. OSSEOUS: Skeletal metastases blastic again noted this appears relatively stable. Slight loss of heig ht of T5 vertebral body is unchanged.. ABDOMEN: There is no ascites. LIVER: There are no focal hepatic lesions nor dilatation of intrahepatic ducts. GALLBLADDER/BILIARY: No obvious gallbladder pathology. CBD is not dilated. PANCREAS: No evidence of pancreatic mass nor dilatation of the pancreatic duct. SPLEEN: Spleen is not enlarged. There are no intrasplenic lesions. Splenic and portal veins are au nt. ADRENALS: Right adrenal gland unremarkable. There is a nodule in the left adrenal gland noted measur ing 2.2 by 1.2 cm, unchanged from prior study. Also unchanged from prior CT scan of September 2015 and therefore most probably benign adenoma, as opposed to metastatic lesion. KIDNEYS: No calculi nor hydronephrosis. No solid renal masses. No cysts evident. ABDOMINAL AORTA: Calcified but not enlarged. LYMPH NODES: There is no retroperitoneal nor paraaortic adenopathy. ABDOMINAL WALL/GI: No evidence of significant anterior abdominal wall hernia. No bowel obstruction. PELVIS: LYMPH NODES: There is no intrapelvic nor inguinal adenopathy. GI: No evidence of appendicitis.No evidence of sigmoid diverticulitis. URINARY BLADDER: No calculi nor masses evident REPRODUCTIVE: Enlarged uterus containing mass again noted, possibly a large fibroid but should be fur ther studied with ultrasound. OSSEOUS: Bilateral hip prostheses. Schmorl's node in the taken superior endplate of L5. Blastic oss eous metastatic disease again noted. IMPRESSION: 1. Compared to the prior CT scans listed above there is no evidence of new intrathoracic metastatic d isease. No pulmonary nodules nor pleural effusions nor intrathoracic adenopathy evident. 2. Stable left adrenal nodule unchanged from 2016 and therefore most probably benign adenoma. 3. Abnormal appearing enlarged uterus again noted. Probably due to large fibroids which should under go ultrasound. 4. Bilateral hip prostheses. Healed fracture of the inferior pubic ramus left side 5. skeletal sclerotic metastases appear relatively stable. If clinically indicated nuclear bone scan can be performed. RADIATION DOSE DELIVERED: 1,972.51mGy.cm Total DLP DATA REPOSITORY: All CT scans at this facility are submitted to the National Radiology Data Registry (NRDR) Dose Index Registry (DIR) with the [employer] (ACR). RADIATION OPTIMIZATION: All CT scans at this facility use at least one of these dose optimization te chniques: automated exposure control; mA and/or kV adjustment per patient size (includes targeted exa ms where dose is matched to clinical indication); or iterative reconstruction.
--- NOTE | 2020-12-19 11:00 | DI.US_ITS ---
APPROVED REPORT EXAM: Comprehensive 2D, Doppler, and color-flow Echocardiogram Patient Location: Out-Patient Air Saw Operator: Blanca Portillo RDCS (AE) Indications: Immunosuppressive drugs, Breast Cancer, Bony Mets Other Information Study Quality: Adequate Conclusion Normal left ventricular wall thickness and chamber size. Estimated ejection fraction is 60%. There are no segmental wall motion abnormalities Normal right ventricular size and systolic function Both atria are normal in size Aortic valve is sclerotic without stenosis or regurgitation Moderate mitral annular calcification with trace to mild mitral regurgitation Normal tricuspid valve with mild regurgitation. Estimated right ventricular systolic pressure is nor mal Normal pulmonic valve with trace regurgitation Mildly dilated ascending aorta Wall motion Left Ventricle The left ventricle is normal size. The left ventricular systolic function is normal. The left ventric ular ejection fraction is within the normal range. There is normal left ventricular wall thickness. T here is normal LV segmental wall motion. There is no ventricular septal defect visualized. LVEF is 58 %. Right Ventricle The right ventricle is normal size. The right ventricular systolic function is normal. The RVSP is 26 .2 mmHg. Atria The left atrium size is normal. The right atrium size is normal. The interatrial septum is intact wit h no evidence for an atrial septal defect. Aortic Valve The aortic valve is mildly sclerotic Aortic valve is trileaflet. There is no aortic valvular stenosis . No aortic regurgitation is present. Mitral Valve Moderate mitral annular calcification. No evidence of mitral valve stenosis. Trace to mild mitral reg urgitation. Tricuspid Valve The tricuspid valve is normal in structure. There is no tricuspid valve stenosis. Mild tricuspid regu rgitation. Pulmonic Valve The pulmonary valve is normal in structure. There is no pulmonic valvular stenosis. Trace pulmonic re gurgitation. Great Vessels The aortic root is normal in size. The ascending aorta is mildly dilated.3.67 cm Aortic arch is jaron l in caliber. IVC is normal in size and collapses >50% with inspiration. Pericardium There is no pericardial effusion. 2D Dimensions IVSD d PLAX 1.01 cm F: 0.6-1.0 LV Vol A2C d MOD 92.0 mL LVPW d PLAX 1.05 cm F: 0.6 - 1.0 LV Vol A4C d MOD 88.0 mL LVID d PLAX 4.54 cm F: 3.8 - 5.2 LA vol/ BSA A2C s A-L 15.6 mL/m2 LVDs 3.15 cm F: 2.2 - 3.5 LA vol/ BSA A4C s A-L 22.4 mL/m2 Ao Root d 3.01 cm F: 2.7 - 3.3 LA Vol/ BSA Biplane s A-L 21.2 mL/m2 RA Area A4C 14.99 cm2 LA Area A4C s MOD 16.84 cm2 RA Vol/ BSA A4C s A-L 18.0 mL/m2 LA Area A2C s MOD 12.35 cm2 Ao Asc Diam d 3.67 cm F: 2.3 - 3.1 LV EF A4C MOD 57.7 % LV EF Teichholz 56.6 % LV EF A2C MOD 58.5 % LVEF (Chinchilla's) 56.96 % F: 54 - 74 LV EF Biplane MOD 57.0 % LV Volume 68.83 mL F: 46 - 106 SV 52.39 mL LV Volume Index 34.24 mL/m2 F: 29 - 61 SV Index 26.02 mL/m2 LV Vol Biplane MOD 92.0 mL FS 29.50 % M-Mode TAPSE 1.85 cm (M/F) >1.7 LV Diastology MV E' medial 0.062 (>0.07 m/s) E/A Ratio 0.7 LV E/e MED 9.55 (<14) MV E Vmax 0.59 (0.4-1.3 m/s) MV E' lateral 0.072 (>0.1 m/s) MV A Vmax 0.80 (0.4-1.3 m/s) LV E/e LAT 8.15 (<14) MV E/A Ratio 0.70 MV E/E' medial 9.58 MV E/E' lateral 8.15 Aortic Valve LVOT Area 3.09 cm2 AoV Area Vmax 2.15 cm2 LVOT Vmax 0.94 m/s AoV Area/ BSA (Vmax) 1.07 cm2/m2 LVOT Mean David. 0.61 m/s AMY Mean David. 2.14 cm2 LVOT Peak Grad 3.5 mmHg AMY Mean David. Index 1.06 cm2/m2 LVOT Mean Grad 1.8 mmHg LVOT VTI 0.239 m LVOT Diam s 1.95 cm AoV Vmax 1.34 m/s Velocity Ratio 0.70 AoV Mean David. 0.88 m/s AoV Peak Grad 7.2 mmHg LVOT SV 73.98 mL AoV Mean Grad 3.6 mmHg AoV VTI 0.286 m AoV Area VTI 2.59 cm2 AoV Area/ BSA (VTI) 1.29 cm/m2 Mitral Valve MV DT 309 (160-240 msec) MR Vmax 4.38 m/s MV PHT 90 msec MR VTI 1.803 m MV Area PHT 2.46 cm2 MR Peak Grad 76.6 mmHg MV VTI 0.329 m MR Mean Grad 53.0 mmHg MV VTI Annulus 0.320 m MR PISA Radius 0.49 cm MV Area VTI 2.18 (4.0-6.0 cm2) MR EROA 0.12 cm2 MR Aliasing Velocity 0.35 m/s MR PISA 1.51 cm2 Pulmonary Valve PV Vmax 1.03 (0.5-1.5 m/s) RVOT Peak Gr. 2.52 mmHg PV Peak Grad 4.2 mmHg RVOT Mean Gr. 1.30 mmHg PV Mean Grad 2.5 mmHg RVOT VTI 0.190 m PV VTI 0.275 m RVOT Vmax 0.79 m/s Tricuspid Valve TR Peak Grad 23.1 mmHg TR Vmax 2.41 m/s RA Pressure 3.00 mmHg RVSP (TR) 26.2 mmHg
[2020-12-19] MEDS: Normal Saline - Diluent 50 ML VIAL IV (12:25)
[2020-12-19] MEDS: Normal Saline Flush 10 ML SYR IVP (12:25)
[2020-12-19] MEDS: Breeza Beverage 473 ML BTL PO (12:26)
== END 2020-12-19 02:17 ==
PROVIDERS: PCP Family Medicine; Visit Provider Internal Medicine Hematology & Oncology
DX: T45.1X5A Adverse effect of antineoplastic and immunosuppressive drugs, initial encounter (principal); C50.412 Malignant neoplasm of upper-outer quadrant of left female breast; Z17.1 Estrogen receptor negative status [ER-]; C79.51 Secondary malignant neoplasm of bone; I36.1 Nonrheumatic tricuspid (valve) insufficiency; I77.810 Thoracic aortic ectasia
CPT/HCPCS: 74177; 93306; 96523; 71260

== ENCOUNTER 2021-01-02 01:46 | Outpatient (RCR) | payer MEDICARE, SELFPAY ==
[2020-12-12] MEDS: Normal Saline Flush 10 ML SYR IVP (10:37)
[2020-12-12 10:54] LABS: Abs Immature Grans 0.02 10^3/uL (0.0-0.06); Absolute Basophil Count 0.05 10^3/uL (0.0-0.2); Absolute Eosinophil Count 0.18 10^3/uL (0.0-0.7); Absolute Lymphocyte Count 1.23 10^3/uL (1.2-3.4); Absolute Monocyte Count 0.51 10^3/uL (0.1-0.8); Absolute Neutrophil Count 3.83 10^3/uL (1.2-6.7); Basophils % 0.9; Eosinophils % 3.1; HCT 37.7 % (36.0-46.0); HGB 12.5 g/dL (11.2-15.7); Immature Grans % 0.3; Lymphocytes % 21.1; MCH 30.3 pg (27.0-33.0); MCHC 33.2 % (32.0-36.0); MCV 91.5 fL (80-95); MPV 10.2 fL (8.0-11.0); Monocytes % 8.8; Neutrophils % 65.8; Nucleated RBC 0 %; Platelet Count 285 10^3/uL (130-400); RBC 4.12 10^6/uL (3.93-5.22); RDW 14.4 % (11.7-14.6); RDW-SD 48.7 fL; WBC 5.82 10^3/uL (4.4-10.8)
[2020-12-12 11:10] LABS: ALT 19 U/L (14-59); AST 18 U/L (15-37); Albumin 3.3 g/dL (3.4-5.0); Alkaline Phosphatase 54 U/L (46-116); BUN 16 mg/dL (7-18); Bilirubin, Total 0.4 mg/dL (0.2-1.0); CREATININE 1.1 mg/dL (0.55-1.02); Calcium 9.2 mg/dL (8.5-10.1); Chloride 109 mmol/L (98-107); Estimated GFR 47.43 (mL/min/1.73m2); Glucose 92 mg/dL (74-106); Sodium 142 mmol/L (136-145); Total Protein 6.6 g/dL (6.4-8.2)
[2020-12-19] MEDS: Normal Saline Flush 10 ML SYR IVP (09:05)
[2020-12-19] MEDS: Heparin 500 UNITS/5 ML SYRINGE IV (09:05)
[2021-01-02] MEDS: Normal Saline Flush 10 ML SYR IVP (09:17)
[2021-01-02 09:20] LABS: Abs Immature Grans 0.02 10^3/uL (0.0-0.06); Absolute Basophil Count 0.02 10^3/uL (0.0-0.2); Absolute Eosinophil Count 0.12 10^3/uL (0.0-0.7); Absolute Lymphocyte Count 1.56 10^3/uL (1.2-3.4); Absolute Monocyte Count 0.79 10^3/uL (0.1-0.8); Absolute Neutrophil Count 7.37 10^3/uL (1.2-6.7); Basophils % 0.2; Eosinophils % 1.2; HCT 39.4 % (36.0-46.0); HGB 12.7 g/dL (11.2-15.7); Immature Grans % 0.2; Lymphocytes % 15.8; MCH 29.6 pg (27.0-33.0); MCHC 32.2 % (32.0-36.0); MCV 91.8 fL (80-95); MPV 10.3 fL (8.0-11.0); Neutrophils % 74.6; Nucleated RBC 0 %; Platelet Count 293 10^3/uL (130-400); RBC 4.29 10^6/uL (3.93-5.22); RDW 14.8 % (11.7-14.6); RDW-SD 50.3 fL; WBC 9.88 10^3/uL (4.4-10.8)
[2021-01-02 09:34] LABS: ALT 30 U/L (14-59); AST 14 U/L (15-37); Albumin 3.2 g/dL (3.4-5.0); Alkaline Phosphatase 55 U/L (46-116); Anion Gap 11.1 mmol/L (3-11); BUN 17 mg/dL (7-18); Bilirubin, Total 0.4 mg/dL (0.2-1.0); CO2 22.9 mmol/L (21.0-32.0); CREATININE 1.1 mg/dL (0.55-1.02); Calcium 8.6 mg/dL (8.5-10.1); Chloride 110 mmol/L (98-107); Estimated GFR 47.43 (mL/min/1.73m2); Glucose 86 mg/dL (74-106); Sodium 144 mmol/L (136-145); Total Protein 6.6 g/dL (6.4-8.2)
== END 2021-01-03 23:59 | disposition home or self-care (01) ==
LOC: INF 01:46
PROVIDERS: PCP Family Medicine; Visit Provider Internal Medicine Hematology & Oncology
DX: C50.412 Malignant neoplasm of upper-outer quadrant of left female breast (principal); Z17.1 Estrogen receptor negative status [ER-]; Z45.2 Encounter for adjustment and management of vascular access device
CPT/HCPCS: 36591; 80053; 96523; 85025

== ENCOUNTER 2021-01-23 02:50 | Outpatient (RCR) | payer MEDICARE, SELFPAY ==
[2021-01-23 10:25] LABS: Abs Immature Grans 0.02 10^3/uL (0.0-0.06); Absolute Basophil Count 0.04 10^3/uL (0.0-0.2); Absolute Lymphocyte Count 1.45 10^3/uL (1.2-3.4); Absolute Monocyte Count 0.61 10^3/uL (0.1-0.8); Absolute Neutrophil Count 4.39 10^3/uL (1.2-6.7); Basophils % 0.6; HCT 39.6 % (36.0-46.0); Immature Grans % 0.3; Lymphocytes % 21.6; MCHC 32.8 % (32.0-36.0); MCV 91.5 fL (80-95); MPV 10.3 fL (8.0-11.0); Monocytes % 9.1; Neutrophils % 65.4; Nucleated RBC 0 %; Platelet Count 346 10^3/uL (130-400); RBC 4.33 10^6/uL (3.93-5.22); RDW 14.6 % (11.7-14.6); RDW-SD 49.1 fL; WBC 6.71 10^3/uL (4.4-10.8)
[2021-01-23 10:38] LABS: ALT 19 U/L (14-59); AST 17 U/L (15-37); Albumin 3.3 g/dL (3.4-5.0); Alkaline Phosphatase 66 U/L (46-116); Anion Gap 13.2 mmol/L (3-11); BUN 15 mg/dL (7-18); Bilirubin, Total 0.3 mg/dL (0.2-1.0); CO2 22.8 mmol/L (21.0-32.0); CREATININE 1.3 mg/dL (0.55-1.02); Calcium 8.8 mg/dL (8.5-10.1); Chloride 107 mmol/L (98-107); Estimated GFR 39.12 (mL/min/1.73m2); Glucose 138 mg/dL (74-106); Potassium 4.1 mmol/L (3.5-5.1); Sodium 143 mmol/L (136-145); Total Protein 6.6 g/dL (6.4-8.2)
[2021-01-23] MEDS: Normal Saline Flush 10 ML SYR IVP (11:31)
== END 2021-02-03 23:59 | disposition home or self-care (01) ==
LOC: INF 02:50
PROVIDERS: PCP Family Medicine; Visit Provider Internal Medicine Hematology & Oncology
DX: C50.412 Malignant neoplasm of upper-outer quadrant of left female breast (principal); Z17.1 Estrogen receptor negative status [ER-]; Z45.2 Encounter for adjustment and management of vascular access device
CPT/HCPCS: 36591; 80053; 85025

== ENCOUNTER 2021-02-07 03:36 | Outpatient (CLI) | payer MEDICARE, SELFPAY ==
--- NOTE | 2021-02-07 | DI.MRI_ITS ---
Exam(s) MR BRAIN WO/W EXAM: MR BRAIN WO/W CLINICAL HISTORY: BRAIN METS,C79.31 TECHNIQUE: Multiplanar multisequence MRI of the brain was performed. CONTRAST MATERIAL: IV Contrast: 18 ML of Dotarem contrast administered. COMPARISON: MR MR BRAIN WO/W from 11/26/2020 MR MR BRAIN WO/W from 11/26/2020 FINDINGS: The examination is limited due to patient motion artifact. VENTRICLES AND EXTRA AXIAL SPACES: Normal in size and morphology for the patient's age. Since the paula or examination, there has developed a right subdural fluid collection measuring 0.9 cm in maximum thi ckness. It is of intermediate density, hyper intense relative to CSF on the T1 weighted images and is ointense to CSF on the T2 weighted images. There is no midline shift or effacement of the adjacent woodruff lci. HEMORRHAGE: None. CEREBRAL PARENCHYMA: No focus of restricted diffusion to suggest acute infarct. No space-occupying le gaby identified. MIDLINE SHIFT: None. BRAINSTEM/CEREBELLUM: Normal. CALVARIUM: Normal. ENHANCEMENT: The enhancing right caudate nucleus mass now measures 1.5 x 1.1 cm. This compares with 2 .5 x 1.8 cm on the prior examination. No new enhancing lesions are identified. There is stable cortic al enhancement involving the posterior left parietal lobe. VISUALIZED PARANASAL SINUSES/MASTOIDS: Clear. [place] OF SERNA: Normal flow void. PITUITARY GLAND: Unremarkable. OTHER FINDINGS: IMPRESSION: 1. Interval decrease in size of the right caudate nucleus mass which now measures 1.5 x 1.1 cm compar ed to 2.5 x 1.8 cm. 2. No new intracranial mass or enhancing lesion. 3. Stable left parietal cortical enhancement. 4. Interval development of a right subdural fluid collection measuring 0.9 cm in maximum thickness. N o midline shift or effacement of the adjacent sulci is noted. This may represent a hygroma or old hem orrhage. A CT scan may be considered for further evaluation. DATA REPOSITORY:
[2021-02-07] MEDS: Gadoterate meglumine 20 ML VIAL 18 ML IVP (10:09)
[2021-02-07] MEDS: Normal Saline Flush 10 ML SYR IVP (10:10)
== END 2021-02-07 03:56 ==
PROVIDERS: PCP Family Medicine; Visit Provider Radiology Radiation Oncology
DX: C79.31 Secondary malignant neoplasm of brain (principal); G93.89 Other specified disorders of brain
CPT/HCPCS: 70553

== ENCOUNTER 2021-02-07 18:02 | Emergency (ER) | payer MEDICARE, SELFPAY ==
[2021-02-07 18:06] VITALS: BP 158/72; PULSE 89; RESP 22; TEMP 36.1; O2SAT 95
--- NOTE | 2021-02-07 18:34 | ED.GENADUL_ITS ---
Discharge Plan Disposition Patient Disposition: HOME Condition: Stable Discharge Details Clinical Impression: Frontal mass of brain Primary Care Provider: Rajwinder Harris ED Provider: Jenny Vo Home Meds and New Rx's Prescriptions: Continued pertuzumab 420 mg/14 mL (30 mg/mL) solution 420 mg IV Q3W RF: 0 lisinopril 20 mg tablet 20 mg PO DAILY RF: 0 omeprazole 20 mg tablet,delayed release (DR/EC) 20 mg PO DAILY RF: 0 Herceptin 440 MG recon soln RF: 0 multivitamin [Multiple Vitamins] 1 TAB tablet 1 tab PO DAILY RF: 0 levothyroxine 112 MCG tablet 112 mcg PO DAILY RF: 0 Xgeva 120 mg/1.7 mL (70 mg/mL) solution 120 mg Sub-Q .COMPLEX RF: 0 Discontinued aspirin 81 MG tablet,chewable 81 mg PO DAILY RF: 0 ibuprofen 600 MG tablet 600 mg PO Q8H PRN PRN (Reason: Pain) Qty: 30 RF: 0 Discharge Instructions Instructions: Intracranial Hematoma (DC) Additional Instructions: stop aspirin and ibuprofen your repeat head CT is stable so you are safe for discharge return immediately for new or worsening symptoms Referrals: claudette wallace [Other] - 3 days (call for appointment for next week, return sooner for new or worsening symptoms) Medical Decision Making <Jenny Vo NP - Last Filed: 02/07/21 20:40> case is [place] with [place] Wallace [place] [facility] she recommends CT head now for comparison. plan will be discharge home, discontinue asa and ibuprofen. f/u outpatient neurosurgery or return sooner for new or worsening symptoms labs reviewed and aptt likely elevated d/t heparin from [facility] accessed for blood draw patient does admit to minor head injury approx 2 weeks ago. struck head on door jam when she lost her balance, no LOC or significant injury. Medical Records Medical records reviewed: Yes I reviewed the patient's medical records. Medical records narrative: [facility] from [place] IMPRESSION: 1. Interval decrease in size of the right caudate nucleus mass which now measures 1.5 x 1.1 cm compared to 2.5 x 1.8 cm. 2. No new intracranial mass or enhancing lesion. 3. Stable left parietal cortical enhancement. 4. Interval development of a right subdural fluid collection measuring 0.9 cm in maximum thickness. No midline shift or effacement of the adjacent sulci is noted. This may represent a hygroma or old hemorrhage. A CT scan may be considered for further evaluation. PROCEDURE INFORMATION: Exam: CT Head Without Contrast Exam date and time: 02/07/2021 7:40 PM Age: 85 years old Clinical indication: Screening exam; Patient HX: Subdural fluid collection evaluation, ? increased TECHNIQUE: Imaging protocol: Computed tomography of the head without contrast. COMPARISON: MR BRAIN WO/W 02/07/2021 9:56 AM FINDINGS: Brain: Small right frontal and parietal hypodense subdural collection is seen measuring up to 9 mm.Attenuation value for this collection is slightly higher than CSF. Small amount of edema is seen in left posterior parietal lobe with suboptimal visualization of mass lesion better visualized on MRI study. No mass effect or midline shift. No acute intracranial hemorrhage. Cha/white matter differentiation is unremarkable. Cisterns are unremarkable. Brainstem is unremarkable. No suprasellar mass. Cerebral ventricles: No ventriculomegaly. Paranasal sinuses: Visualized sinuses are unremarkable. No fluid levels. Mastoid air cells: Visualized mastoid air cells are well aerated. Bones/joints: Unremarkable. No acute fracture. Soft tissues: Small amount of edema is again seen in right head of caudate with suboptimal visualization of right head of caudate mass. IMPRESSION: 1. Small right frontal and parietal hypodense subdural collection is seen measuring up to 9 mm.Attenuation value for this collection is slightly higher than CSF. Finding is consistent with subacute subdural hemorrhage. No acute component seen. 2. Small amount of edema is again seen in right head of caudate with suboptimal visualization of right head of caudate mass. 3. Small amount of edema is seen in left posterior parietal lobe with suboptimal visualization of mass lesion better visualized on MRI study. 4. No mass effect or midline shift. Dictated and Authenticated by: Kyle Landry MD. Ordering:GERARDO Alvarado MD Lab Data Lab results reviewed: Yes I reviewed the patient's lab results. Lab results narrative: Laboratory Results - last 24 hr 02/07/21 02/07/21 02/07/21 18:48 18:48 18:48 WBC 5.59 RBC 3.89 L Hgb 11.7 Hct 35.3 L MCV 90.7 MCH 30.1 MCHC 33.1 RDW 14.6 Plt Count 254 MPV 10.0 Immature Gran % 0.2 Neutrophils % 60.3 Lymphocytes % 25.2 Monocytes % 9.1 Eosinophils % 4.5 Basophils % 0.7 Nucleated RBC % 0 Absolute Neutrophils 3.37 Absolute Lymphocytes 1.41 Absolute Monocytes 0.51 Absolute Eosinophils 0.25 Absolute Basophils 0.04 PT 10.4 INR 1.0 APTT 88.7 H* Sodium 142 Potassium 3.9 Chloride 108 H Carbon Dioxide 24.6 Anion Gap 9.4 BUN 14 Creatinine 1.0 Estimated GFR/1.73 m2 52.95 Glucose 113 H Calcium 8.7 Total Bilirubin 0.3 AST 16 ALT 17 Alkaline Phosphatase 61 Total Protein 6.5 Albumin 3.3 L <Jacinto Hahn MD - Last Filed: 02/07/21 20:43> I had a [id number] encounter with the patient. I evaluated the patient. I discussed case with SKIN CARE TECHNICIAN/PA and I reviewed SKIN CARE TECHNICIAN/PA note and agree with note as documented. HPI <Jenny Vo NP - Last Filed: 02/07/21 20:40> General Mode of arrival: ambulatory . Date/Time Provider Initiated Documentation: 02/07/21 18:09 . Limitations to Documentation: no limitations . Information obtained by: patient and family . HPI Narrative: patient referred to the ED for findings on a routine f/u brain MRI, she has been asymptomatic. Related Data Home Medications Medication Instructions Recorded Confirmed Herceptin 11/03/15 07/08/20 multivitamin [Multiple Vitamins] 1 tab PO DAILY tab 04/04/17 07/08/20 levothyroxine 112 mcg PO DAILY 01/06/18 07/08/20 pertuzumab 420 mg/14 mL (30 mg/mL) 420 mg IV Q3W 11/10/18 07/08/20 intravenous solution denosumab 120 mg/1.7 mL (70 mg/mL) 120 mg SUB-Q .COMPLEX 01/08/20 07/08/20 subcutaneous solution lisinopril 20 mg tablet 20 mg PO DAILY 01/08/20 07/08/20 omeprazole 20 mg tablet,delayed 20 mg PO DAILY 01/08/20 07/08/20 release Previous Rx's Medication Instructions Recorded multivitamin [Multiple Vitamins] 1 tab PO DAILY tab 04/04/17 Allergies Allergy/AdvReac Type Severity Reaction Status Date / Time No Known Drug Allergies Allergy Verified 02/07/21 18:08 milk AdvReac Unknown diarrhea Verified 07/08/20 10:46 General Stated Complaint: Recheck MONY: 3 Review of Systems <Jenny Vo NP - Last Filed: 02/07/21 20:40> All systems reviewed & are unremarkable except as noted in HPI and below Constitutional Constitutional: Denies frequent falls, Denies headache(s) and Denies weakness Eyes Eyes: Denies change in vision ENT Ears, Nose, Mouth, and Throat: Denies abnormal hearing, Denies vertigo, Denies dizziness, Denies headache(s) and Denies disequilibrium Cardiovascular Cardiovascular: Denies syncope Musculoskeletal Musculoskeletal: Denies abnormal gait Neurologic Neurologic: Denies abnormal hearing, Denies abnormal movements, Denies abnormal speech, Denies abnormal gait, Denies confusion, Denies vertigo, Denies dizziness, Denies syncope, Denies frequent falls, Denies headache(s), Denies other visual disturbances, Denies convulsions, Denies sensory deficit, Denies tremor(s), Denies disequilibrium and Denies weakness Psychiatric Psychiatric: Denies confusion PFSH <Jenny Vo NP - Last Filed: 02/07/21 20:40> Medical History (Updated 02/07/21 @ 20:23 by Jenny Vo NP) Cardiac arrhythmia asymptomatic. incidental finding. s/p eval in [facility]. no intervention required. 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 eventually metastisized. Father Diabetes Sister Breast cancer Sister Breast cancer Lung cancer Social History Smoking/Tobacco Use Status: Former Tobacco Use Smoking risk assessment performed?: Yes Alcohol Intake: never Drug use: Never Substance use type: does not use Do you feel safe at home: Yes Exam <Jenny Vo NP - Last Filed: 02/07/21 20:40> Const General: cooperative, healthy appearing, comfortable, no acute distress (elderly white female of stated age) and well developed Nutritional Appearance: overweight Orientation: alert, awake and oriented x3 HENMT Head: normal to inspection, normocephalic and atraumatic General nose exam: external nose normal Mouth: oral mucosae normal Resp Effort & Inspection: normal respiratory effort Auscultation: clear to auscultation bilaterally Cardio Rate: regular rate Rhythm: regular rhythm GI Inspection: normal to inspection Palpation: soft and nontender Skin General skin exam: no rashes or lesions noted Neuro General: patient alert, patient awake, patient oriented x3, no focal motor deficits, CN's II-XI intact bilaterally and other (finger to nose intact bilaterally, rhomberg negative) Cranial Nerves: EOM intact bilaterally and facial strength normal Cognition: normal cognition Speech: speech normal Gait: normal gait Motor: muscle tone normal throughout and strength 5/5 throughout Course <Jenny Vo, SKIN CARE TECHNICIAN - Last Filed: 02/07/21 20:40> Vital Signs Vital signs: Vital Signs Temperature 36.1 C L 02/07/21 18:06 Pulse 89 02/07/21 18:06 Respiratory Rate 22 02/07/21 18:06 Blood Pressure 158/72 H 02/07/21 18:06 Pulse Oximetry 95 02/07/21 18:06 Temperature 36.1 C L 02/07/21 18:06 Temperature Source Skin 02/07/21 18:06 Pulse 89 02/07/21 18:06 Respiratory Rate 22 02/07/21 18:06 Respiratory Effort 02/07/21 18:09 Blood Pressure 158/72 H 02/07/21 18:06 Blood Pressure Position Sitting 02/07/21 18:06 Pulse Oximetry 95 02/07/21 18:06 Oxygen Delivery Method Room Air 02/07/21 18:06 Oxygen Flow Rate 0 02/07/21 18:06 Pain Level 0 02/07/21 18:06
[2021-02-07 18:57] LABS: Abs Immature Grans 0.01 10^3/uL (0.0-0.06); Absolute Basophil Count 0.04 10^3/uL (0.0-0.2); Absolute Eosinophil Count 0.25 10^3/uL (0.0-0.7); Absolute Lymphocyte Count 1.41 10^3/uL (1.2-3.4); Absolute Monocyte Count 0.51 10^3/uL (0.1-0.8); Absolute Neutrophil Count 3.37 10^3/uL (1.2-6.7); Basophils % 0.7; Eosinophils % 4.5; HCT 35.3 % (36.0-46.0); HGB 11.7 g/dL (11.2-15.7); Immature Grans % 0.2; Lymphocytes % 25.2; MCH 30.1 pg (27.0-33.0); MCHC 33.1 % (32.0-36.0); MCV 90.7 fL (80-95); Monocytes % 9.1; Neutrophils % 60.3; Nucleated RBC 0 %; Platelet Count 254 10^3/uL (130-400); RBC 3.89 10^6/uL (3.93-5.22); RDW 14.6 % (11.7-14.6); RDW-SD 49.2 fL; WBC 5.59 10^3/uL (4.4-10.8)
[2021-02-07 19:09] LABS: Prothrombin Time 10.4 sec (9.3-11.0)
[2021-02-07 19:25] LABS: PTT Activated 88.7 sec (21.0-27.5)
[2021-02-07 19:27] LABS: ALT 17 U/L (14-59); AST 16 U/L (15-37); Albumin 3.3 g/dL (3.4-5.0); Alkaline Phosphatase 61 U/L (46-116); Anion Gap 9.4 mmol/L (3-11); BUN 14 mg/dL (7-18); Bilirubin, Total 0.3 mg/dL (0.2-1.0); CO2 24.6 mmol/L (21.0-32.0); Calcium 8.7 mg/dL (8.5-10.1); Chloride 108 mmol/L (98-107); Estimated GFR 52.95 (mL/min/1.73m2); Glucose 113 mg/dL (74-106); Potassium 3.9 mmol/L (3.5-5.1); Sodium 142 mmol/L (136-145); Total Protein 6.5 g/dL (6.4-8.2)
--- NOTE | 2021-02-07 19:30 | DI.CT_ITS ---
Exam(s) CT HEAD WO EXAM: CT HEAD WO CLINICAL HISTORY: subdural fluid collection evaluation, ? increased TECHNIQUE: COMPARISON: MR MR BRAIN WO/W from 11/26/2020 MR MR BRAIN WO/W from 02/07/2021 FINDINGS: Noncontrast CT examination was performed. Patient has a known mass of the head of the caudate on the right, this is less clearly seen on CT than on recent MR examinations, although it is visible as an area of mildly decreased attenuation. There is a 9 millimeter in diameter right frontal/parietal S subdural hematoma, which is presumably s ubacute with the intermediate attenuation measurements. 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 No other acute process seen. Unremarkable appeara nce of the orbital and temporal bone structures. IMPRESSION: 9 millimeter presumed subacute subdural hematoma, right frontoparietal period no underlying cerebral edema, no midline shift or ventricular compression. Previously described mass of the head of the caudate on the right less clearly visualized on CT than on recent MR examinations. RADIATION DOSE DELIVERED: 704.19mGy.cm Total DLP RADIATION OPTIMIZATION: All CT scans at this facility use at least one of these dose optimization te chniques: automated exposure control; mA and/or kV adjustment per patient size (includes targeted exa ms where dose is matched to clinical indication); or iterative reconstruction.
--- NOTE | 2021-02-07 20:10 | DI.VRAD_ITS ---
PROCEDURE INFORMATION: Exam: CT Head Without Contrast Exam date and time: 02/07/2021 7:40 PM Age: 85 years old Clinical indication: Screening exam; Patient HX: Subdural fluid collection evaluation, ? increased TECHNIQUE: Imaging protocol: Computed tomography of the head without contrast. COMPARISON: MR BRAIN WO/W 02/07/2021 9:56 AM FINDINGS: Brain: Small right frontal and parietal hypodense subdural collection is seen measuring up to 9 mm.Attenuation value for this collection is slightly higher than CSF. Small amount of edema is seen in left posterior parietal lobe with suboptimal visualization of mass lesion better visualized on MRI study. No mass effect or midline shift. No acute intracranial hemorrhage. Cha/white matter differentiation is unremarkable. Cisterns are unremarkable. Brainstem is unremarkable. No suprasellar mass. Cerebral ventricles: No ventriculomegaly. Paranasal sinuses: Visualized sinuses are unremarkable. No fluid levels. Mastoid air cells: Visualized mastoid air cells are well aerated. Bones/joints: Unremarkable. No acute fracture. Soft tissues: Small amount of edema is again seen in right head of caudate with suboptimal visualization of right head of caudate mass. IMPRESSION: 1. Small right frontal and parietal hypodense subdural collection is seen measuring up to 9 mm.Attenuation value for this collection is slightly higher than CSF. Finding is consistent with subacute subdural hemorrhage. No acute component seen. 2. Small amount of edema is again seen in right head of caudate with suboptimal visualization of right head of caudate mass. 3. Small amount of edema is seen in left posterior parietal lobe with suboptimal visualization of mass lesion better visualized on MRI study. 4. No mass effect or midline shift. Dictated and Authenticated by: Kyle Landry MD. Ordering:GERARDO Alvarado MD
[2021-02-07] MEDS: Normal Saline-STERILE FIELD 0.9% 10 ML SYR (20:52)
[2021-02-07] MEDS: Heparin 500 UNITS/5 ML SYRINGE (20:52)
[2021-02-07 21:00] VITALS: BP 158/72; PULSE 89; RESP 22; TEMP 36.1; O2SAT 95
== END 2021-02-07 20:50 | disposition home or self-care (01) ==
PROVIDERS: Emergency Provider Nurse Practitioner Acute Care; PCP Family Medicine
DX: R90.89 Other abnormal findings on diagnostic imaging of central nervous system (principal); G93.89 Other specified disorders of brain; I62.02 Nontraumatic subacute subdural hemorrhage; R91.1 Solitary pulmonary nodule
CPT/HCPCS: 36415; 36591; 70553; 80053; 99284; 70450; 82565; 85025; 85610; 85730

== ENCOUNTER 2021-02-13 02:31 | Outpatient (RCR) | payer MEDICARE, SELFPAY ==
[2021-02-07] MEDS: Normal Saline Flush 10 ML SYR IVP (09:45)
[2021-02-07] MEDS: Heparin 500 UNITS/5 ML SYRINGE IV (09:45)
[2021-02-07 10:03] LABS: Estimated GFR 52.95 (mL/min/1.73m2)
[2021-02-13] MEDS: Normal Saline Flush 10 ML SYR IVP (08:58)
[2021-02-13 09:16] LABS: Abs Immature Grans 0.02 10^3/uL (0.0-0.06); Absolute Basophil Count 0.05 10^3/uL (0.0-0.2); Absolute Eosinophil Count 0.28 10^3/uL (0.0-0.7); Absolute Lymphocyte Count 0.99 10^3/uL (1.2-3.4); Absolute Monocyte Count 0.55 10^3/uL (0.1-0.8); Absolute Neutrophil Count 4.36 10^3/uL (1.2-6.7); Basophils % 0.8; Eosinophils % 4.5; HCT 35.2 % (36.0-46.0); HGB 11.6 g/dL (11.2-15.7); Immature Grans % 0.3; Lymphocytes % 15.8; MCH 30.1 pg (27.0-33.0); MCV 91.2 fL (80-95); MPV 10.3 fL (8.0-11.0); Monocytes % 8.8; Neutrophils % 69.8; Nucleated RBC 0 %; Platelet Count 238 10^3/uL (130-400); RBC 3.86 10^6/uL (3.93-5.22); RDW 14.6 % (11.7-14.6); RDW-SD 48.8 fL; WBC 6.25 10^3/uL (4.4-10.8)
[2021-02-13 09:29] LABS: ALT 16 U/L (14-59); AST 15 U/L (15-37); Albumin 3.1 g/dL (3.4-5.0); Alkaline Phosphatase 58 U/L (46-116); Anion Gap 10.4 mmol/L (3-11); BUN 15 mg/dL (7-18); Bilirubin, Total 0.4 mg/dL (0.2-1.0); CO2 24.6 mmol/L (21.0-32.0); CREATININE 1.1 mg/dL (0.55-1.02); Calcium 8.4 mg/dL (8.5-10.1); Chloride 109 mmol/L (98-107); Estimated GFR 47.43 (mL/min/1.73m2); Glucose 120 mg/dL (74-106); Potassium 3.6 mmol/L (3.5-5.1); Sodium 144 mmol/L (136-145); Total Protein 6.3 g/dL (6.4-8.2)
== END 2021-03-05 23:59 | disposition home or self-care (01) ==
LOC: INF 02:31
PROVIDERS: Radiology Radiation Oncology; PCP Family Medicine; Visit Provider Internal Medicine Hematology & Oncology
DX: C50.412 Malignant neoplasm of upper-outer quadrant of left female breast (principal); Z45.2 Encounter for adjustment and management of vascular access device; Z17.1 Estrogen receptor negative status [ER-]
CPT/HCPCS: 36591; 80053; 82565; 85025

== ENCOUNTER 2021-03-27 02:54 | Outpatient (RCR) | payer MEDICARE, SELFPAY ==
[2021-03-06] MEDS: Normal Saline Flush 10 ML SYR IVP (08:42)
[2021-03-06 08:46] LABS: Abs Immature Grans 0.01 10^3/uL (0.0-0.06); Absolute Basophil Count 0.05 10^3/uL (0.0-0.2); Absolute Eosinophil Count 0.32 10^3/uL (0.0-0.7); Absolute Lymphocyte Count 1.33 10^3/uL (1.2-3.4); Absolute Monocyte Count 0.65 10^3/uL (0.1-0.8); Absolute Neutrophil Count 4.09 10^3/uL (1.2-6.7); Basophils % 0.8; HGB 12.3 g/dL (11.2-15.7); Immature Grans % 0.2; Lymphocytes % 20.6; MCH 29.2 pg (27.0-33.0); MCHC 31.5 % (32.0-36.0); MCV 92.6 fL (80-95); MPV 10.3 fL (8.0-11.0); Monocytes % 10.1; Neutrophils % 63.3; Nucleated RBC 0 %; Platelet Count 303 10^3/uL (130-400); RBC 4.21 10^6/uL (3.93-5.22); RDW 14.5 % (11.7-14.6); RDW-SD 49.1 fL; WBC 6.45 10^3/uL (4.4-10.8)
[2021-03-06 08:59] LABS: ALT 18 U/L (14-59); AST 16 U/L (15-37); Albumin 3.4 g/dL (3.4-5.0); Alkaline Phosphatase 49 U/L (46-116); BUN 16 mg/dL (7-18); Bilirubin, Total 0.4 mg/dL (0.2-1.0); CREATININE 1.2 mg/dL (0.55-1.02); Calcium 8.6 mg/dL (8.5-10.1); Chloride 110 mmol/L (98-107); Glucose 126 mg/dL (74-106); Potassium 3.8 mmol/L (3.5-5.1); Sodium 143 mmol/L (136-145); Total Protein 6.7 g/dL (6.4-8.2)
[2021-03-27 09:51] LABS: Abs Immature Grans 0.01 10^3/uL (0.0-0.06); Absolute Basophil Count 0.03 10^3/uL (0.0-0.2); Absolute Eosinophil Count 0.21 10^3/uL (0.0-0.7); Absolute Lymphocyte Count 1.27 10^3/uL (1.2-3.4); Absolute Monocyte Count 0.57 10^3/uL (0.1-0.8); Absolute Neutrophil Count 4.08 10^3/uL (1.2-6.7); Basophils % 0.5; Eosinophils % 3.4; HCT 37.8 % (36.0-46.0); HGB 12.3 g/dL (11.2-15.7); Immature Grans % 0.2; Lymphocytes % 20.6; MCH 29.8 pg (27.0-33.0); MCHC 32.5 % (32.0-36.0); MCV 91.5 fL (80-95); MPV 10.3 fL (8.0-11.0); Monocytes % 9.2; Neutrophils % 66.1; Nucleated RBC 0 %; Platelet Count 242 10^3/uL (130-400); RBC 4.13 10^6/uL (3.93-5.22); RDW 14.5 % (11.7-14.6); RDW-SD 48.5 fL; WBC 6.17 10^3/uL (4.4-10.8)
[2021-03-27] MEDS: Normal Saline Flush 10 ML SYR IVP (09:53)
[2021-03-27 10:05] LABS: ALT 19 U/L (14-59); AST 16 U/L (15-37); Albumin 3.4 g/dL (3.4-5.0); Alkaline Phosphatase 54 U/L (46-116); Anion Gap 8.8 mmol/L (3-11); BUN 12 mg/dL (7-18); Bilirubin, Total 0.4 mg/dL (0.2-1.0); CO2 25.2 mmol/L (21.0-32.0); Calcium 8.5 mg/dL (8.5-10.1); Chloride 110 mmol/L (98-107); Estimated GFR 52.95 (mL/min/1.73m2); Glucose 113 mg/dL (74-106); Sodium 144 mmol/L (136-145); Total Protein 6.7 g/dL (6.4-8.2)
== END 2021-04-05 23:59 | disposition home or self-care (01) ==
LOC: INF 02:54
PROVIDERS: PCP Family Medicine; Visit Provider Internal Medicine Hematology & Oncology
DX: C50.412 Malignant neoplasm of upper-outer quadrant of left female breast (principal); Z17.1 Estrogen receptor negative status [ER-]; Z45.2 Encounter for adjustment and management of vascular access device
CPT/HCPCS: 36591; 80053; 85025

== ENCOUNTER 2021-04-17 03:48 | Outpatient (RCR) | payer MEDICARE, SELFPAY ==
[2021-04-17] MEDS: Normal Saline Flush 10 ML SYR IVP (09:44)
[2021-04-17 09:54] LABS: Abs Immature Grans 0.03 10^3/uL (0.0-0.06); Absolute Basophil Count 0.03 10^3/uL (0.0-0.2); Absolute Eosinophil Count 0.17 10^3/uL (0.0-0.7); Absolute Lymphocyte Count 0.98 10^3/uL (1.2-3.4); Absolute Monocyte Count 0.52 10^3/uL (0.1-0.8); Absolute Neutrophil Count 4.42 10^3/uL (1.2-6.7); Basophils % 0.5; Eosinophils % 2.8; HCT 37.2 % (36.0-46.0); Immature Grans % 0.5; Lymphocytes % 15.9; MCH 29.5 pg (27.0-33.0); MCHC 32.3 % (32.0-36.0); MCV 91.4 fL (80-95); MPV 10.3 fL (8.0-11.0); Monocytes % 8.5; Neutrophils % 71.8; Nucleated RBC 0 %; Platelet Count 257 10^3/uL (130-400); RBC 4.07 10^6/uL (3.93-5.22); RDW 14.6 % (11.7-14.6); RDW-SD 49.1 fL; WBC 6.15 10^3/uL (4.4-10.8)
[2021-04-17 10:13] LABS: ALT 18 U/L (14-59); AST 15 U/L (15-37); Albumin 3.2 g/dL (3.4-5.0); Alkaline Phosphatase 56 U/L (46-116); Anion Gap 7.8 mmol/L (3-11); BUN 10 mg/dL (7-18); Bilirubin, Total 0.3 mg/dL (0.2-1.0); CO2 24.2 mmol/L (21.0-32.0); CREATININE 1.1 mg/dL (0.55-1.02); Chloride 110 mmol/L (98-107); Estimated GFR 47.43 (mL/min/1.73m2); Glucose 129 mg/dL (74-106); Potassium 3.6 mmol/L (3.5-5.1); Sodium 142 mmol/L (136-145); Total Protein 6.5 g/dL (6.4-8.2)
== END 2021-05-06 23:59 | disposition home or self-care (01) ==
LOC: INF 03:48
PROVIDERS: PCP Family Medicine; Visit Provider Internal Medicine Hematology & Oncology
DX: C50.412 Malignant neoplasm of upper-outer quadrant of left female breast (principal); Z17.1 Estrogen receptor negative status [ER-]; Z45.2 Encounter for adjustment and management of vascular access device
CPT/HCPCS: 36591; 80053; 85025

== ENCOUNTER 2021-05-09 04:29 | Outpatient (CLI) | payer MEDICARE, SELFPAY ==
--- NOTE | 2021-05-09 | DI.US_ITS ---
Exam(s) US LOWER EXTREMITY VENOUS LT EXAM: US LOWER EXTREMITY VENOUS LT CLINICAL HISTORY: LT BREAST CA,BONY METS,BRAIN METS,LT CALF AND ANKLE SWELLING,R60.9. TECHNIQUE: Ultrasound performed using standard protocol. COMPARISON: US US ECHOCARDIOGRAM from 12/19/2020 FINDINGS: Duplex venous ultrasound was performed according to the usual protocol. The deep veins are freely com pressible throughout and there is normal flow augmentation with manual calf compression. 2D and Doppl er evaluation are unremarkable. IMPRESSION: No evidence of deep venous thrombosis of the left lower extremity. DATA REPOSITORY:
== END 2021-05-09 04:49 ==
PROVIDERS: PCP Family Medicine; Visit Provider Nurse Practitioner Family
DX: R60.9 Edema, unspecified (principal); C50.412 Malignant neoplasm of upper-outer quadrant of left female breast; Z17.1 Estrogen receptor negative status [ER-]; C79.51 Secondary malignant neoplasm of bone; C79.31 Secondary malignant neoplasm of brain
CPT/HCPCS: 93971

== ENCOUNTER 2021-05-21 01:42 | Outpatient (CLI) | payer MEDICARE, SELFPAY ==
--- NOTE | 2021-05-21 | DI.MRI_ITS ---
Exam(s) MR BRAIN WO/W EXAM: MR BRAIN WO/W CLINICAL HISTORY: BRAIN METS, C79.31, ASSESS TREATMENT RESPONSE TECHNIQUE: Multiplanar multisequence MRI of the brain was performed. CONTRAST MATERIAL: IV Contrast: 18 ML of Dotarem contrast administered. COMPARISON: MR MR BRAIN WO/W from 02/07/2021 FINDINGS: The examination is limited due to patient motion artifact. VENTRICLES AND EXTRA AXIAL SPACES: Normal in size and morphology for the patient's age. HEMORRHAGE: The extra-axial fluid collection has resolved since the prior examination from 02/07/2021. CEREBRAL PARENCHYMA: No focus of restricted diffusion to suggest acute infarct. There has been slight interval decrease in size of the enhancing mass in the right caudate lobe. Currently it measures 1. 3 x 0.9 cm. This compares to 1.5 x 1.1 cm. No new enhancing lesions are identified. MIDLINE SHIFT: None. BRAINSTEM/CEREBELLUM: Normal. CALVARIUM: Normal. ENHANCEMENT: There is stable enhancement of the cortex in the posterior left parietal lobe. VISUALIZED PARANASAL SINUSES/MASTOIDS: Clear. [place] OF SER[place]: Normal flow void. PITUITARY GLAND: Unremarkable. OTHER FINDINGS: IMPRESSION: 1. Slight interval decrease in size of the right caudate lobe mass since 02/07/2021. 2. No new intracranial enhancing lesions. 3. Resolution of the right subdural extra-axial fluid collection. 4. Stable cortical enhancement of the posterior left parietal lobe. DATA REPOSITORY:
[2021-05-21] MEDS: Normal Saline Flush 10 ML SYR IVP (10:20)
[2021-05-21] MEDS: Gadoterate meglumine 20 ML VIAL 18 ML IVP (10:21)
== END 2021-05-21 02:02 ==
PROVIDERS: PCP Family Medicine; Visit Provider Radiology Radiation Oncology
DX: C79.31 Secondary malignant neoplasm of brain (principal)
CPT/HCPCS: 70553; 96523

== ENCOUNTER 2021-05-29 01:04 | Outpatient (RCR) | payer MEDICARE, SELFPAY ==
[2021-05-08] MEDS: Normal Saline Flush 10 ML SYR IVP (09:11)
[2021-05-08 09:17] LABS: Abs Immature Grans 0.02 10^3/uL (0.0-0.06); Absolute Basophil Count 0.05 10^3/uL (0.0-0.2); Absolute Eosinophil Count 0.31 10^3/uL (0.0-0.7); Absolute Lymphocyte Count 1.23 10^3/uL (1.2-3.4); Absolute Monocyte Count 0.81 10^3/uL (0.1-0.8); Absolute Neutrophil Count 4.52 10^3/uL (1.2-6.7); Basophils % 0.7; Eosinophils % 4.5; HCT 39.5 % (36.0-46.0); HGB 12.9 g/dL (11.2-15.7); Immature Grans % 0.3; Lymphocytes % 17.7; MCH 29.3 pg (27.0-33.0); MCHC 32.7 % (32.0-36.0); MCV 89.8 fL (80-95); MPV 10.8 fL (8.0-11.0); Monocytes % 11.7; Neutrophils % 65.1; Nucleated RBC 0 %; Platelet Count 278 10^3/uL (130-400); RDW 14.8 % (11.7-14.6); RDW-SD 48.5 fL; WBC 6.94 10^3/uL (4.4-10.8)
[2021-05-08 09:30] LABS: ALT 21 U/L (14-59); AST 15 U/L (15-37); Albumin 3.4 g/dL (3.4-5.0); Alkaline Phosphatase 64 U/L (46-116); Anion Gap 11.2 mmol/L (3-11); BUN 9 mg/dL (7-18); Bilirubin, Total 0.4 mg/dL (0.2-1.0); CO2 25.8 mmol/L (21.0-32.0); Calcium 8.8 mg/dL (8.5-10.1); Chloride 108 mmol/L (98-107); Estimated GFR 52.82 (mL/min/1.73m2); Glucose 97 mg/dL (74-106); Sodium 145 mmol/L (136-145)
[2021-05-21] MEDS: Heparin 500 UNITS/5 ML SYRINGE IV (09:40)
[2021-05-21] MEDS: Normal Saline Flush 10 ML SYR IVP (09:40)
[2021-05-29 09:26] LABS: Abs Immature Grans 0.01 10^3/uL (0.0-0.06); Absolute Basophil Count 0.05 10^3/uL (0.0-0.2); Absolute Eosinophil Count 0.36 10^3/uL (0.0-0.7); Absolute Lymphocyte Count 0.82 10^3/uL (1.2-3.4); Absolute Neutrophil Count 3.69 10^3/uL (1.2-6.7); Basophils % 0.9; Eosinophils % 6.4; HCT 38.5 % (36.0-46.0); HGB 12.6 g/dL (11.2-15.7); Immature Grans % 0.2; Lymphocytes % 14.6; MCH 29.1 pg (27.0-33.0); MCHC 32.7 % (32.0-36.0); MCV 88.9 fL (80-95); MPV 10.2 fL (8.0-11.0); Monocytes % 12.4; Neutrophils % 65.5; Nucleated RBC 0 %; Platelet Count 281 10^3/uL (130-400); RBC 4.33 10^6/uL (3.93-5.22); RDW 14.5 % (11.7-14.6); RDW-SD 47.5 fL; WBC 5.63 10^3/uL (4.4-10.8)
[2021-05-29 09:45] LABS: ALT 15 U/L (14-59); AST 18 U/L (15-37); Albumin 3.2 g/dL (3.4-5.0); Alkaline Phosphatase 64 U/L (46-116); Anion Gap 10.4 mmol/L (3-11); BUN 13 mg/dL (7-18); Bilirubin, Total 0.4 mg/dL (0.2-1.0); CO2 25.6 mmol/L (21.0-32.0); CREATININE 1.1 mg/dL (0.55-1.02); Calcium 8.7 mg/dL (8.5-10.1); Chloride 108 mmol/L (98-107); Estimated GFR 47.32 (mL/min/1.73m2); Glucose 112 mg/dL (74-106); Potassium 3.7 mmol/L (3.5-5.1); Sodium 144 mmol/L (136-145); Total Protein 6.8 g/dL (6.4-8.2)
[2021-05-29] MEDS: Normal Saline Flush 10 ML SYR IVP (13:07)
== END 2021-06-05 23:59 | disposition home or self-care (01) ==
LOC: INF 01:04
PROVIDERS: PCP Family Medicine; Visit Provider Internal Medicine Hematology & Oncology
DX: C50.412 Malignant neoplasm of upper-outer quadrant of left female breast (principal); Z45.2 Encounter for adjustment and management of vascular access device; Z17.1 Estrogen receptor negative status [ER-]
CPT/HCPCS: 36591; 80053; 96523; 85025

== ENCOUNTER 2021-06-12 02:07 | Outpatient (CLI) | payer MEDICARE, SELFPAY ==
--- NOTE | 2021-06-12 10:20 | DI.US_ITS ---
APPROVED REPORT EXAM: Comprehensive 2D, Doppler, and color-flow Echocardiogram Patient Location: Out-Patient Rotary Swaging Machine Operator: Blanca Portillo RDCS (AE) Indications: Breast Cancer, Adverse effect of antineoplastic drugs, Bone Mets Other Information Study Quality: Adequate Conclusion Normal left ventricular wall thickness and chamber size. Estimated ejection fraction is 60 to 65%. Wall motion is normal Normal right ventricular size and systolic function Both atria are normal in size Mildly sclerotic trileaflet aortic valve without stenosis or regurgitation Moderate mitral annular calcification. Trace to mild mitral regurgitation Normal tricuspid valve with mild regurgitation. Estimated right ventricular systolic pressure is nor mal at 24 mmHg Normal pulmonic valve with trace regurgitation Mildly dilated ascending aorta Wall motion Left Ventricle The left ventricle is normal size. The left ventricular systolic function is normal. The left ventric ular ejection fraction is within the normal range. There is normal left ventricular wall thickness. T here is normal LV segmental wall motion. There is no ventricular septal defect visualized. LVEF is 60 -65%. Right Ventricle The right ventricle is normal size. The right ventricular systolic function is normal. The RVSP is 24 .6mmHg. Atria The left atrium size is normal. The right atrium size is normal. The interatrial septum is intact wit h no evidence for an atrial septal defect. Aortic Valve The Aortic valve is mildly sclerotic. Aortic valve is trileaflet. There is no aortic valvular stenosi s. No aortic regurgitation is present. Mitral Valve Moderate mitral annular calcification. No evidence of mitral valve stenosis. Trace to mild mitral reg urgitation. Tricuspid Valve The tricuspid valve is normal in structure. There is no tricuspid valve stenosis. Mild tricuspid regu rgitation. Pulmonic Valve The pulmonary valve is normal in structure. There is no pulmonic valvular stenosis. Trace pulmonic re gurgitation. Great Vessels The aortic root is normal in size. The ascending aorta is mildly dilated. Aortic arch is normal in c aliber. IVC is normal in size and collapses >50% with inspiration. Pericardium There is no pericardial effusion. 2D Dimensions IVSD d PLAX 1.05 cm F: 0.6-1.0 LV Vol A2C d MOD 56.3 mL LVPW d PLAX 1.04 cm F: 0.6 - 1.0 LV Vol A4C d MOD 78.8 mL LVID d PLAX 4.52 cm F: 3.8 - 5.2 LA vol/ BSA A4C s A-L 26.7 mL/m2 LVDs 3.00 cm F: 2.2 - 3.5 LA Area A4C s MOD 17.97 cm2 Ao Root d 3.08 cm F: 2.7 - 3.3 LV EF A4C MOD 60.9 % RA Area A4C 14.75 cm2 LV EF A2C MOD 60.3 % RA Vol/ BSA A4C s A-L 18.9 mL/m2 LV EF Biplane MOD 60.7 % Ao Asc Diam d 3.79 cm F: 2.3 - 3.1 SV 41.83 mL LV EF Teichholz 61.7 % SV Index 21.91 mL/m2 LVEF (Chinchilla's) 60.66 % F: 54 - 74 LV Volume 52.54 mL F: 46 - 106 LV Volume Index 27.50 mL/m2 F: 29 - 61 LV Vol Biplane MOD 69.0 mL FS 33.00 % M-Mode TAPSE 2.34 cm (M/F) >1.7 LV Diastology MV E' medial 0.062 (>0.07 m/s) E/A Ratio 0.7 LV E/e MED 10.45 (<14) MV E Vmax 0.65 (0.4-1.3 m/s) MV E' lateral 0.060 (>0.1 m/s) MV A Vmax 0.90 (0.4-1.3 m/s) LV E/e LAT 10.85 (<14) MV E/A Ratio 0.70 MV E/E' medial 10.46 MV E/E' lateral 10.88 Aortic Valve LVOT Area 3.24 cm2 AoV Area Vmax 2.38 cm2 LVOT Vmax 0.92 m/s AoV Area/ BSA (Vmax) 1.25 cm2/m2 LVOT Mean David. 0.63 m/s AMY Mean David. 2.24 cm2 LVOT Peak Grad 3.4 mmHg AMY Mean David. Index 1.17 cm2/m2 LVOT Mean Grad 1.8 mmHg LVOT VTI 0.192 m LVOT Diam s 2.00 cm AoV Vmax 1.25 m/s Velocity Ratio 0.73 AoV Mean David. 0.91 m/s AoV Peak Grad 6.2 mmHg LVOT SV 62.13 mL AoV Mean Grad 3.6 mmHg AoV VTI 0.246 m AoV Area VTI 2.52 cm2 AoV Area/ BSA (VTI) 1.32 cm/m2 Mitral Valve MV DT 338 (160-240 msec) MV PHT 98 msec MV Area PHT 2.24 cm2 MV VTI 0.256 m MV Area VTI 2.43 (4.0-6.0 cm2) Pulmonary Valve PV Vmax 1.12 (0.5-1.5 m/s) RVOT Peak Gr. 5.06 mmHg PV Peak Grad 5.0 mmHg RVOT Mean Gr. 2.45 mmHg PV Mean Grad 2.7 mmHg RVOT VTI 0.176 m PV VTI 0.193 m RVOT Vmax 1.12 m/s Tricuspid Valve TR Peak Grad 21.6 mmHg TR Vmax 2.32 m/s RA Pressure 3.00 mmHg RVSP (TR) 24.6 mmHg
== END 2021-06-12 02:27 ==
PROVIDERS: PCP Family Medicine; Visit Provider Nurse Practitioner Family
DX: C79.51 Secondary malignant neoplasm of bone (principal); C50.412 Malignant neoplasm of upper-outer quadrant of left female breast; Z17.1 Estrogen receptor negative status [ER-]; T45.1X2A Poisoning by antineoplastic and immunosuppressive drugs, intentional self-harm, initial encounter; I08.8 Other rheumatic multiple valve diseases; I77.810 Thoracic aortic ectasia
CPT/HCPCS: 93306

== ENCOUNTER 2021-06-19 02:17 | Outpatient (RCR) | payer MEDICARE, SELFPAY ==
[2021-06-19] MEDS: Normal Saline Flush 10 ML SYR IVP (09:23)
[2021-06-19 09:47] LABS: Abs Immature Grans 0.02 10^3/uL (0.0-0.06); Absolute Basophil Count 0.04 10^3/uL (0.0-0.2); Absolute Lymphocyte Count 1.22 10^3/uL (1.2-3.4); Absolute Monocyte Count 0.52 10^3/uL (0.1-0.8); Absolute Neutrophil Count 3.56 10^3/uL (1.2-6.7); Basophils % 0.7; Eosinophils % 5.3; HCT 37.7 % (36.0-46.0); HGB 12.2 g/dL (11.2-15.7); Immature Grans % 0.4; Lymphocytes % 21.6; MCH 29.3 pg (27.0-33.0); MCHC 32.4 % (32.0-36.0); MCV 90.6 fL (80-95); MPV 10.2 fL (8.0-11.0); Monocytes % 9.2; Neutrophils % 62.8; Nucleated RBC 0 %; Platelet Count 289 10^3/uL (130-400); RBC 4.16 10^6/uL (3.93-5.22); RDW 14.6 % (11.7-14.6); RDW-SD 48.4 fL; WBC 5.66 10^3/uL (4.4-10.8)
[2021-06-19 10:08] LABS: ALT 15 U/L (14-59); AST 16 U/L (15-37); Albumin 3.1 g/dL (3.4-5.0); Alkaline Phosphatase 64 U/L (46-116); Anion Gap 8.9 mmol/L (3-11); BUN 18 mg/dL (7-18); Bilirubin, Total 0.3 mg/dL (0.2-1.0); CO2 25.1 mmol/L (21.0-32.0); CREATININE 1.3 mg/dL (0.55-1.02); Calcium 8.9 mg/dL (8.5-10.1); Chloride 108 mmol/L (98-107); Estimated GFR 39.02 (mL/min/1.73m2); Glucose 138 mg/dL (74-106); Sodium 142 mmol/L (136-145); TSH (W/Ref FT4) 9.73 uIU/mL (0.36-3.74); Total Protein 6.5 g/dL (6.4-8.2)
[2021-06-19 10:28] LABS: FREE T4 0.97 ng/dL (0.76-1.46)
== END 2021-07-06 23:59 | disposition home or self-care (01) ==
LOC: INF 02:17
PROVIDERS: PCP Family Medicine; Visit Provider Internal Medicine Hematology & Oncology
DX: C50.412 Malignant neoplasm of upper-outer quadrant of left female breast (principal); E03.9 Hypothyroidism, unspecified; Z17.1 Estrogen receptor negative status [ER-]; Z45.2 Encounter for adjustment and management of vascular access device
CPT/HCPCS: 36591; 80053; 84439; 84443; 85025

== ENCOUNTER → 2021-07-11 10:05 | Outpatient (BNVA) | payer MEDICARE, SELFPAY | PROVIDERS: PCP Family Medicine; Referring Provider Family Medicine; Visit Provider Internal Medicine Cardiovascular Disease | DX: I49.3 Ventricular premature depolarization (principal); I10 Essential (primary) hypertension; C50.912 Malignant neoplasm of unspecified site of left female breast; C79.9 Secondary malignant neoplasm of unspecified site | CPT/HCPCS: 99214; 99213 ==

== ENCOUNTER 2021-07-30 02:08 | Outpatient (RCR) | payer MEDICARE, SELFPAY ==
[2021-07-10] MEDS: Normal Saline Flush 10 ML SYR IVP (10:13)
[2021-07-10 10:21] LABS: Abs Immature Grans 0.02 10^3/uL (0.0-0.06); Absolute Basophil Count 0.06 10^3/uL (0.0-0.2); Absolute Eosinophil Count 0.26 10^3/uL (0.0-0.7); Absolute Lymphocyte Count 1.08 10^3/uL (1.2-3.4); Absolute Monocyte Count 0.51 10^3/uL (0.1-0.8); Absolute Neutrophil Count 4.78 10^3/uL (1.2-6.7); Basophils % 0.9; Eosinophils % 3.9; HCT 40.7 % (36.0-46.0); HGB 13.1 g/dL (11.2-15.7); Immature Grans % 0.3; Lymphocytes % 16.1; MCH 28.9 pg (27.0-33.0); MCHC 32.2 % (32.0-36.0); MCV 89.8 fL (80-95); MPV 10.2 fL (8.0-11.0); Monocytes % 7.6; Neutrophils % 71.2; Nucleated RBC 0 %; Platelet Count 278 10^3/uL (130-400); RBC 4.53 10^6/uL (3.93-5.22); RDW 14.6 % (11.7-14.6); RDW-SD 48.5 fL; WBC 6.71 10^3/uL (4.4-10.8)
[2021-07-10 10:36] LABS: ALT 19 U/L (14-59); AST 16 U/L (15-37); Albumin 3.3 g/dL (3.4-5.0); Alkaline Phosphatase 63 U/L (46-116); Anion Gap 12.7 mmol/L (3-11); BUN 15 mg/dL (7-18); Bilirubin, Total 0.5 mg/dL (0.2-1.0); CO2 25.3 mmol/L (21.0-32.0); Calcium 9.2 mg/dL (8.5-10.1); Chloride 108 mmol/L (98-107); Estimated GFR 52.82 (mL/min/1.73m2); Glucose 130 mg/dL (74-106); Potassium 3.4 mmol/L (3.5-5.1); Sodium 146 mmol/L (136-145); Total Protein 6.7 g/dL (6.4-8.2)
[2021-07-30] MEDS: Normal Saline Flush 10 ML SYR IVP (13:37)
[2021-07-30 13:42] LABS: Abs Immature Grans 0.02 10^3/uL (0.0-0.06); Absolute Basophil Count 0.04 10^3/uL (0.0-0.2); Absolute Eosinophil Count 0.19 10^3/uL (0.0-0.7); Absolute Lymphocyte Count 1.49 10^3/uL (1.2-3.4); Absolute Neutrophil Count 4.79 10^3/uL (1.2-6.7); Basophils % 0.6; Eosinophils % 2.7; HCT 41.3 % (36.0-46.0); HGB 13.1 g/dL (11.2-15.7); Immature Grans % 0.3; Lymphocytes % 21.2; MCH 28.6 pg (27.0-33.0); MCHC 31.7 % (32.0-36.0); MCV 90.2 fL (80-95); MPV 9.6 fL (8.0-11.0); Monocytes % 7.1; Neutrophils % 68.1; Nucleated RBC 0 %; Platelet Count 328 10^3/uL (130-400); RBC 4.58 10^6/uL (3.93-5.22); RDW 14.8 % (11.7-14.6); RDW-SD 49.2 fL; WBC 7.03 10^3/uL (4.4-10.8)
[2021-07-30 13:55] LABS: ALT 19 U/L (14-59); AST 19 U/L (15-37); Albumin 3.5 g/dL (3.4-5.0); Alkaline Phosphatase 57 U/L (46-116); Anion Gap 10.9 mmol/L (3-11); BUN 15 mg/dL (7-18); Bilirubin, Total 0.5 mg/dL (0.2-1.0); CO2 24.1 mmol/L (21.0-32.0); Calcium 8.5 mg/dL (8.5-10.1); Chloride 107 mmol/L (98-107); Estimated GFR 52.82 (mL/min/1.73m2); Glucose 107 mg/dL (74-106); Sodium 142 mmol/L (136-145); Total Protein 6.8 g/dL (6.4-8.2)
== END 2021-08-05 23:59 | disposition home or self-care (01) ==
LOC: INF 02:08
PROVIDERS: PCP Family Medicine; Visit Provider Internal Medicine Hematology & Oncology
DX: C50.412 Malignant neoplasm of upper-outer quadrant of left female breast (principal); Z45.2 Encounter for adjustment and management of vascular access device; Z17.1 Estrogen receptor negative status [ER-]
CPT/HCPCS: 36591; 80053; 85025

== ENCOUNTER 2021-08-21 10:25 | Emergency (ER) | payer MEDICARE, SELFPAY ==
[2021-08-21] VITALS (11 sets, daily range): BP systolic 156–166; BP diastolic 62–78; PULSE 69–83; RESP 16–23; TEMP 36.6; O2SAT 94–96
--- NOTE | 2021-08-21 10:30 | RT.EKG_ITS ---
APPROVED REPORT Exam: Resting ECG Reason for Exam: weak Patient Location: E HR:80 bpm ECG Measurements Heart Rate 80 AXIS HI 80 P 32 QRSd 114 QRS -69 QT 405 T 43 QTc 467 Conclusion Sinus rhythm...normal P axis, V-rate 60- 99 Left anterior fascicular block...axis(240,-40), init forces inf Probable left ventricular hypertrophy...(RaVL+SV3)xQRSd >300
--- NOTE | 2021-08-21 10:45 | DI.CT_ITS ---
Exam(s) CT HEAD WO EXAM: CT HEAD WO CLINICAL HISTORY: falls, weakness. TECHNIQUE: Imaging Protocol: Axial computed tomography images with coronal and sagittal reformatted images were created and reviewed COMPARISON: MR MR BRAIN WO/W from 02/07/[address] HEAD WO from 02/07/2021 MR MR BRAIN WO/W from 02/07/2021 FINDINGS: There are no skull fractures nor fluid in the visualized paranasal sinuses. There is a thin right convexity subdural hematoma again noted which is chronic and has further decrea sed in size. There is abnormal hypodensity and in the right caudate nucleus and edema in the adjacent white matter the right frontal lobe. This was the area of enhancing mass on February 2021 MRI and there is some mass effect upon the ipsilateral frontal horn of right lateral ventricle. No prominent shift of midline structures. In addition, there is an area of abnormal white matter hypodensity posteriorly in the left parieto-oc cipital region, this also corresponding to an area of abnormal enhancement on prior MRI study of February 2021, probably also another lesion. IMPRESSION: Abnormal hypodensity and surrounding edema right caudate lobe. This was an abnormally enhancing mass on MRI scan of February 07, 2021. Second abnormal area posteriorly left temporal occipital region, also probably lesion given its appea ariela on the prior contrast infused MRI 02/07/2021. 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 If clinically indicated follow-up contrast infused MRI can be performed. RADIATION DOSE DELIVERED: 715.13mGy.cm Total DLP DATA REPOSITORY: All CT scans at this facility are submitted to the National Radiology Data Registry (NRDR) Dose Index Registry (DIR) with the [employer] (ACR). RADIATION OPTIMIZATION: All CT scans at this facility use at least one of these dose optimization te chniques: automated exposure control; mA and/or kV adjustment per patient size (includes targeted exa ms where dose is matched to clinical indication); or iterative reconstruction.
--- NOTE | 2021-08-21 10:45 | DI.CT_ITS ---
Exam(s) CT LUMBAR SPINE WO EXAM: CT LUMBAR SPINE WO CLINICAL HISTORY: pain s/p fall. TECHNIQUE: Imaging Protocol: Axial computed tomography images with coronal and sagittal reformatted images were created and reviewed COMPARISON: No exams were available for comparison FINDINGS: Bones: There is a broad Schmorl's node invagination in the superior endplate of L5 noted. No promine nt compression fracture. Subtle sclerotic density noted in the posterior aspect of L3 vertebral body and L4 vertebral body, possibly significant respect to possible blastic metastatic disease. Also in L2 vertebral body. No lytic osseous lesions identified. Facet arthropathy at multiple levels noted . No facet malalignment. Visualized sacroiliac joints appear age-appropriate SIGNIFICANT DISC LEVELS: L4-5: Moderate central spinal canal stenosis due to broad annular bulging, short AP dimensions the p edicles and bilateral facet arthropathy. L5-S1: Mild-moderate central canal stenosis also evident at this level. Similar reasons as above. The visualized sacroiliac joints and sacrum appear unremarkable. PARASPINAL SOFT TISSUES: There is a partially included mass in the central pelvis which is probably a n enlarged uterus or possibly distended urinary bladder. Cannot be accurately assessed on this study given that it is only minimally included. IMPRESSION: 1. Broad Schmorl's node invagination superior endplate of L5. No prominent compression fracture. 2. Central spinal canal stenosis at L4-5 and L5-S1 levels (moderate) 3. Mass in the central pelvis which partially included and either represents abnormal enlarged uterus or possibly urinary bladder RADIATION DOSE DELIVERED: 792.16mGy.cm Total DLP DATA REPOSITORY: All CT scans at this facility are submitted to the National Radiology Data Registry (NRDR) Dose Index Registry (DIR) with the [employer] (ACR). RADIATION OPTIMIZATION: All CT scans at this facility use at least one of these dose optimization te chniques: automated exposure control; mA and/or kV adjustment per patient size (includes targeted exa ms where dose is matched to clinical indication); or iterative reconstruction.
--- NOTE | 2021-08-21 10:50 | ED.GENADUL_ITS ---
Discharge Plan Disposition Patient Disposition: HOME Condition: Stable Discharge Details Clinical Impression: Falls, General weakness, Cough, Urinary tract infection Primary Care Provider: Rajwinder Harris ED Provider: Jacinto Hahn Home Meds and New Rx's Prescriptions: New levofloxacin 750 mg tablet 750 mg PO DAILY Qty: 7 RF: 0 Continued pertuzumab 420 mg/14 mL (30 mg/mL) solution 420 mg IV Q3W RF: 0 losartan 50 mg tablet 50 mg PO DAILY RF: 0 omeprazole 20 mg tablet,delayed release (DR/EC) 20 mg PO DAILY RF: 0 Herceptin 440 mg recon soln 150 mg IV RF: 0 multivitamin [Multiple Vitamins] 1 TAB tablet 1 tab PO DAILY RF: 0 Xgeva 120 mg/1.7 mL (70 mg/mL) solution 120 mg Sub-Q .COMPLEX RF: 0 levothyroxine 112 mcg tablet 125 mcg PO DAILY RF: 0 Discharge Instructions Instructions: Urinary Tract Infection in Women (ED), Weakness (ED) Additional Instructions: you are being treated for a UTI follow up with your primary care provider and oncologist within 1 weeks if you feel more ill, have difficulty breathing or chest pain return to the emergency department Medical Decision Making 86 yo female with hx of metaststic breast cancer undergoing chemotherapy, htn, hypothyroidism, gerd, who comes in with chief complaint of general weakness for several days. She states on Wednesday she was walking into the grocery store and fell to the ground due to being weak, denies loc and no chest pain or shortness of breath. HAd another fall at her house while walking as well and denies loc or chest pain/dyspnea. She has felt generally weak today and went to the cancer center for an infusion and was referred here. SHe is caox4. She has clear speech, moving all extremities with normal sensation, CN ii-xii intact. She has no abdominal tenderness and denies chest pain or dyspnea though she has had a mild cough per patient. She states after her fall her lower back has hurt and is tender in the mid lumbar region. Unclear etiology for her symptoms, cbc and cmp done earlier today at 9am unremarkble, no significant anemia or electrolyte abnormality. Will check a tsh, ua, covid and obtain ct head, ct lumbar spine and cxr. her labs were drawn prior to arrival show no significant changes on cbc and cmp, her troponin is mildly elevated denies any chest pain now or in the past, suspect this could be from the chemotherapy she is on as she gets frequent echos to evaluate for cardiotoxicity. No acute findings on imaging. She remains stable, her UA is showing signs of uti so ceftriaxone ordered. Discussed with pt and she declines admission to the hospital at this time. Will repeat troponin and reassess. troponin decreased and she is still requesting d/c and has no chest pain and has capacity to make her own decisions, again offered admission which she declined. I am starting her on levofloxacin and advised to f/u with pcp and return precautions given, also follow up with her oncologist Differential Diagnosis Differential Diagnosis: sdh, uti, covid Medical Records Medical records reviewed: Yes I reviewed the patient's medical records. Imaging Data Radiologic Study: Attestation: I personally reviewed and interpreted this imaging study as follows: Imaging: CT Scan Radiologist's impression: IMPRESSION: Abnormal hypodensity and surrounding edema right caudate lobe. This was an abnormally enhancing mass on MRI scan of February 07, 2021. Second abnormal area posteriorly left temporal occipital region, also probably lesion given its appearance on the prior contrast infused MRI 02/07/2021. 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 If clinically indicated follow-up contrast infused MRI can be performed. Radiologic Study #2: Attestation: I personally reviewed and interpreted this imaging study as follows: Imaging: CT Scan Radiologist's impression: IMPRESSION: 1. Broad Schmorl's node invagination superior endplate of L5. No prominent compression fracture. 2. Central spinal canal stenosis at L4-5 and L5-S1 levels (moderate) 3. Mass in the central pelvis which partially included and either represents abnormal enlarged uterus or possibly urinary bladder Radiologic Study #3: Attestation: I personally reviewed and interpreted this imaging study as follows: Imaging: CT Scan Radiologist's impression: MPRESSION: 1. No evidence of acute pulmonary emboli. No evidence of pulmonary infarction .No pleural effusions. 2. No ominous pulmonary nodules, given the osseous findings. 3. Blastic sclerotic densities in vertebral bodies most probably blastic metastatic. 4. Moderate size hiatal again. 5. 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 Lab Data Lab results reviewed: Yes I reviewed the patient's lab results. ECG Data Attestation: I personally reviewed and interpreted this ECG (s) as follows: Prior ECG tracings: available for review Interpretation: sinus rhythm, rate of 80, no acute st t wave ischemic findings sinus rhythm, rate of 67, no acute st t wave ischemic findings HPI General Date/Time Provider Initiated Documentation: 08/21/21 10:26 . Limitations to Documentation: no limitations . Information obtained by: patient . History of Present Illness 86 year old F presents to the emergency department with the chief complaint of general weakness, described as moderate, Patient started experiencing this day(s) (3) and it has been constant. No relieving factors improve symptom(s), No exacerbating factors reported . Patient notes cough. Patient did receive the following treatments prior to arrival, none Related Data Home Medications Medication Instructions Recorded Confirmed multivitamin [Multiple Vitamins] 1 tab PO DAILY tab 04/04/17 07/11/21 pertuzumab 420 mg/14 mL (30 mg/mL) 420 mg IV Q3W 11/10/18 07/11/21 intravenous solution denosumab 120 mg/1.7 mL (70 mg/mL) 120 mg SUB-Q .COMPLEX 01/08/20 07/11/21 subcutaneous solution omeprazole 20 mg tablet,delayed 20 mg PO DAILY 01/08/20 07/11/21 release levothyroxine 112 mcg tablet 125 mcg PO DAILY tab 07/11/21 07/11/21 losartan 50 mg tablet 50 mg PO DAILY 07/11/21 trastuzumab 440 mg intravenous 150 mg IV 07/11/21 07/11/21 solution levofloxacin 750 mg PO DAILY #7 tab 08/21/21 Previous Rx's Medication Instructions Recorded multivitamin [Multiple Vitamins] 1 tab PO DAILY tab 04/04/17 levofloxacin 750 mg PO DAILY #7 tab 08/21/21 Allergies Allergy/AdvReac Type Severity Reaction Status Date / Time No Known Drug Allergies Allergy Verified 08/21/21 10:50 milk AdvReac Unknown diarrhea Verified 08/21/21 10:50 General Stated Complaint: GenMedical MONY: 3 Review of Systems All systems reviewed & are unremarkable except as noted in HPI and below Constitutional Constitutional: Denies chills and Denies fever(s) Cardiovascular Cardiovascular: Denies chest pain and Denies dyspnea Respiratory Respiratory: Denies dyspnea Gastrointestinal Gastrointestinal: Denies abdominal pain, Denies nausea and Denies vomiting Integumentary/Breasts Skin/Breast: Denies rash PFSH All Active Problems Falls (Acute) General weakness (Acute) Cough (Acute) Urinary tract infection (Acute) Frontal mass of brain (Acute) Cardiac arrhythmia (Acute 06/05/14) 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 mets to lumbar spine, sacrum and ribs on 09/2015 bone scan b. HER2/odalys positive c. currently receiving chemotherapy including trastuxumab through [facility] and Dr. Cr NSVT (nonsustained ventricular tachycardia) (Chronic) a. h/o NSVT 03/2015 - evaluated at [facility] and did not have any therapy modifications made Lichen sclerosus of female genitalia (Chronic) a. vulva H/O surgical procedure (Chronic) a. normal cardiac cath 2012 b. left breast biopsy and lumpectomy c. total hip replacements in 2009 and 2013 d. sentinel lymph node biopsy along with lumpectomy e. right port-a-cath placement 09/23/[address] Lockhart Medical History (Updated 08/21/21 @ 13:00 by Jacinto Hahn MD) Cardiac arrhythmia asymptomatic. incidental finding. s/p eval in [facility]. no intervention required. 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 eventually metastisized. Father Diabetes Sister Breast cancer Sister Breast cancer Lung cancer Social History Smoking/Tobacco Use Status: Former Tobacco Use Smoking risk assessment performed?: Yes Alcohol Intake: never Drug use: Never Substance use type: does not use Do you feel safe at home: Yes Exam Const General: no acute distress Orientation: alert HENMT Head: normal to inspection Ears: external ears normal General nose exam: external nose normal Mouth: moist mucous membranes Eyes General: appearance normal, both eyes and all related structures Neck Neck: normal visual inspection Resp Effort & Inspection: normal respiratory effort and able to speak in complete sentences Cardio Rate: regular rate GI Palpation: soft and nontender Back/Spine/Pelvis Back: no CVA tenderness Skin General skin exam: no rashes or lesions noted Neuro General: patient alert and patient oriented x3 Extrem General: normal to inspection Psych Mental Status: mental status grossly normal Course Vital Signs Vital signs: Vital Signs Temperature 36.6 C 08/21/21 10:40 Pulse 83 08/21/21 10:40 Respiratory Rate 18 08/21/21 10:40 Blood Pressure 161/70 H 08/21/21 10:40 Pulse Oximetry 96 08/21/21 10:40 Temperature 36.6 C 08/21/21 10:40 Temperature Source Skin 08/21/21 10:40 Pulse 83 08/21/21 10:40 Respiratory Rate 18 08/21/21 10:40 Respiratory Effort 08/21/21 10:45 Blood Pressure 161/70 H 08/21/21 10:40 Blood Pressure Position Supine 08/21/21 10:40 Pulse Oximetry 96 08/21/21 10:40 Oxygen Delivery Method Room Air 08/21/21 10:40 Oxygen Flow Rate 0 08/21/21 10:40 Pain Level 2 08/21/21 10:40
[2021-08-21 10:51] LABS: Source Nasal/Nares
[2021-08-21 11:12] LABS: Creatine Kinase 512 U/L (26-192)
[2021-08-21 11:15] LABS: Troponin I 96 ng/L (<or=60)
--- NOTE | 2021-08-21 11:15 | DI.CT_ITS ---
Exam(s) CT CHEST PE CTA EXAM: CT CHEST PE CTA CLINICAL HISTORY: weakness, elevated troponin, cancer patient, ?PE. TECHNIQUE: Imaging Protocol: CT angiography of the chest was performed using pulmonary embolus sobeida col. Multi planar reconstructions were performed. CONTRAST MATERIAL: Intravenous: Omnipaque 350 Contrast volume: 100 cc COMPARISON: CT CT CHEST/ABD/PEL W from 12/19/[address] LUMBAR SPINE WO from 08/21/[address] LUMBAR SPINE WO from 08/21/2021 FINDINGS: CHEST: PULMONARY ARTERIES: There are no intraluminal filling defects to suggest acute pulmonary emboli. LUNGS: There are no infiltrates nor evidence of pulmonary infarction.. There are no pleural effusions .. No ominous lung nodules. No lung contusion. No pneumothorax MEDIASTINUM: There is no hilar nor mediastinal adenopathy. Visualized thyroid unremarkable. CARDIAC: Heart size is upper normal. There is no pericardial effusion.Caliber of the thoracic aorta is within normal limits. There is no significant shift of the interventricular septum. PARTIALLY VISUALIZED UPPERMOST ABDOMEN: Moderate size hiatal hernia. There is a well-defined hypoden se nodule in the left adrenal gland measuring 2.2 x 1.5 cm, unchanged from previous study of 12/20/19 21 and also unchanged from 2016 and therefore most probably a benign adenoma. OSSEOUS: Some increased density and height loss is noted in a midthoracic vertebral body and there ar e sclerotic findings again noted in multiple vertebral bodies most probably blastic metastatic diseas e and exhibiting very little change from previous.. IMPRESSION: 1. No evidence of acute pulmonary emboli. No evidence of pulmonary infarction.No pleural effusions. 2. No ominous pulmonary nodules, given the osseous findings. 3. Blastic sclerotic densities in vertebral bodies most probably blastic metastatic. 4. Moderate size hiatal again. 5. 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 Report called to ER physician RADIATION DOSE DELIVERED: 401.91mGy.cm Total DLP DATA REPOSITORY: All CT scans at this facility are submitted to the National Radiology Data Registry (NRDR) Dose Index Registry (DIR) with the [employer] (ACR). RADIATION OPTIMIZATION: All CT scans at this facility use at least one of these dose optimization te chniques: automated exposure control; mA and/or kV adjustment per patient size (includes targeted exa ms where dose is matched to clinical indication); or iterative reconstruction.
[2021-08-21 11:18] LABS: TSH (W/Ref FT4) 4.74 uIU/mL (0.36-3.74)
[2021-08-21 11:29] LABS: COVID-19 PCR Negative (Negative)
[2021-08-21] MEDS: Normal Saline 1,000 ML 1000 ML IV (11:29)
[2021-08-21 11:35] LABS: FREE T4 1.33 ng/dL (0.76-1.46)
[2021-08-21] MEDS: Omnipaque 350 MG/ML 100 ML BTL IJ (11:54)
--- NOTE | 2021-08-21 12:30 | RT.EKG_ITS ---
APPROVED REPORT Exam: Resting ECG Reason for Exam: weakness Patient Location: E HR:67 bpm ECG Measurements Heart Rate 67 AXIS CO 87 P 147 QRSd 114 QRS -69 QT 453 T 61 QTc 478 Conclusion Sinus or ectopic atrial rhythm...P axis (-45,135) Left anterior fascicular block...axis(240,-40), init forces inf
[2021-08-21 12:48] LABS: Bilirubin Negative (Negative); Blood Small (Negative); Clarity Clear (Clear); Glucose Negative (Negative); Ketones Negative (Negative); Leukocyte Esterase Trace (Negative); Nitrite Positive (Negative); Urobilinogen 0.2 EU/dL (Up TO 0.2); pH 6.5 (5-8)
[2021-08-21 13:11] LABS: Bacteria Many HPF (Negative); C & S Indicated? Yes; Casts 0-2 Hyaline LPF (Negative); Crystals Negative HPF (Negative); Epithelial Cells Rare HPF (Negative); Mucus Moderate (Negative)
[2021-08-21] MEDS: cefTRIAXone 2 GM/50 ML BAG IVPB (13:13)
[2021-08-21 13:45] LABS: Troponin I 84 ng/L (<or=60)
== END 2021-08-21 14:23 | disposition home or self-care (01) ==
PROVIDERS: Emergency Provider Emergency Medicine; PCP Family Medicine
DX: R53.1 Weakness (principal); R29.6 Repeated falls; R05.1 Acute cough; N39.0 Urinary tract infection, site not specified; B96.20 Unspecified Escherichia coli [E. coli] as the cause of diseases classified elsewhere
CPT/HCPCS: 36591; 71275; 80053; 82550; 87077; 87635; 93005; 96361; 96365; 99285; 70450; 72131; 81003; 81015; 84439; 84443; 84484; 85025; 87086; 87186; 93010; 99284; J3490

== ENCOUNTER 2021-08-25 01:15 | Outpatient (CLI) | payer MEDICARE, SELFPAY ==
--- NOTE | 2021-08-25 | DI.MRI_ITS ---
Exam(s) MR BRAIN WO/W EXAM: MR BRAIN WO/W CLINICAL HISTORY: F/U BRAIN METS, C79.31,ASSESS TREATMENT RESPONSE. TECHNIQUE: Multiplanar multisequence MRI of the brain was performed. CONTRAST MATERIAL: IV Contrast: 17 ML of Dotarem contrast administered. COMPARISON: MR MR BRAIN WO/W from 02/07/2021 MR MR BRAIN WO/W from 05/21/2021 FINDINGS: VENTRICLES AND EXTRA AXIAL SPACES: Normal in size and morphology for the patient's age. HEMORRHAGE: None. CEREBRAL PARENCHYMA: No focus of restricted diffusion to suggest acute infarct. There has been inter jessie increase in cystic change and decreased central enhancement of the previously noted mass in the r ight caudate region. There is increased white matter edema. Minimal mass effect on the right latera l ventricle. No new masses. MIDLINE SHIFT: None. BRAINSTEM/CEREBELLUM: Normal. CALVARIUM: Normal. ENHANCEMENT: Stable appearance of sulcal enhancement in the posteromedial left parietal lobe. VISUALIZED PARANASAL SINUSES/MASTOIDS: Clear. IMPRESSION: Decreased central enhancement of previously noted right caudate mass consistent with continued improv ement. Increased white matter edema presumed related to treatment. Stable area of enhancement in th e left posterior parietal lobe. DATA REPOSITORY:
[2021-08-25] MEDS: Normal Saline Flush 10 ML SYR IVP (11:43)
[2021-08-25] MEDS: Gadoterate meglumine 20 ML VIAL 17 ML IVP (11:44)
== END 2021-08-25 01:35 ==
PROVIDERS: PCP Family Medicine; Visit Provider Radiology Radiation Oncology
DX: C79.31 Secondary malignant neoplasm of brain (principal)
CPT/HCPCS: 70553; 96523

== ENCOUNTER 2021-09-02 08:00 | Outpatient (RCR) | payer MEDICARE, SELFPAY ==
[2021-08-21] MEDS: Normal Saline Flush 10 ML SYR IVP (09:34)
[2021-08-21 09:41] LABS: Abs Immature Grans 0.02 10^3/uL (0.0-0.06); Absolute Basophil Count 0.05 10^3/uL (0.0-0.2); Absolute Eosinophil Count 0.15 10^3/uL (0.0-0.7); Absolute Lymphocyte Count 0.97 10^3/uL (1.2-3.4); Absolute Neutrophil Count 6.38 10^3/uL (1.2-6.7); Basophils % 0.6; Eosinophils % 1.9; HCT 38.8 % (36.0-46.0); HGB 12.6 g/dL (11.2-15.7); Immature Grans % 0.2; MCHC 32.5 % (32.0-36.0); MCV 89.2 fL (80-95); MPV 10.2 fL (8.0-11.0); Monocytes % 6.2; Neutrophils % 79.1; Nucleated RBC 0 %; Platelet Count 346 10^3/uL (130-400); RBC 4.35 10^6/uL (3.93-5.22); RDW 15.1 % (11.7-14.6); RDW-SD 49.4 fL; WBC 8.07 10^3/uL (4.4-10.8)
[2021-08-21 09:53] LABS: ALT 19 U/L (14-59); AST 28 U/L (15-37); Albumin 3.3 g/dL (3.4-5.0); Alkaline Phosphatase 52 U/L (46-116); Anion Gap 10.5 mmol/L (3-11); BUN 16 mg/dL (7-18); Bilirubin, Total 0.6 mg/dL (0.2-1.0); CO2 24.5 mmol/L (21.0-32.0); CREATININE 1.1 mg/dL (0.55-1.02); Calcium 8.2 mg/dL (8.5-10.1); Chloride 103 mmol/L (98-107); Estimated GFR 47.32 (mL/min/1.73m2); Glucose 146 mg/dL (74-106); Potassium 3.3 mmol/L (3.5-5.1); Sodium 138 mmol/L (136-145); Total Protein 6.6 g/dL (6.4-8.2)
[2021-08-25] MEDS: Normal Saline Flush 10 ML SYR IVP (10:27)
[2021-08-25] MEDS: Heparin 500 UNITS/5 ML SYRINGE IV (10:27)
[2021-09-02] MEDS: Normal Saline Flush 10 ML SYR IVP (08:18)
[2021-09-02 08:25] LABS: Abs Immature Grans 0.02 10^3/uL (0.0-0.06); Absolute Basophil Count 0.06 10^3/uL (0.0-0.2); Absolute Eosinophil Count 0.31 10^3/uL (0.0-0.7); Absolute Lymphocyte Count 1.59 10^3/uL (1.2-3.4); Absolute Monocyte Count 0.54 10^3/uL (0.1-0.8); Absolute Neutrophil Count 4.25 10^3/uL (1.2-6.7); Basophils % 0.9; Eosinophils % 4.6; HCT 37.8 % (36.0-46.0); HGB 12.2 g/dL (11.2-15.7); Immature Grans % 0.3; Lymphocytes % 23.5; MCHC 32.3 % (32.0-36.0); MPV 9.8 fL (8.0-11.0); Neutrophils % 62.7; Nucleated RBC 0 %; Platelet Count 302 10^3/uL (130-400); RDW 15.9 % (11.7-14.6); RDW-SD 52.9 fL; WBC 6.77 10^3/uL (4.4-10.8)
[2021-09-02 08:37] LABS: ALT 15 U/L (14-59); AST 16 U/L (15-37); Albumin 3.1 g/dL (3.4-5.0); Alkaline Phosphatase 48 U/L (46-116); BUN 13 mg/dL (7-18); Bilirubin, Total 0.6 mg/dL (0.2-1.0); Calcium 8.3 mg/dL (8.5-10.1); Chloride 105 mmol/L (98-107); Estimated GFR 52.82 (mL/min/1.73m2); Glucose 93 mg/dL (74-106); Potassium 3.4 mmol/L (3.5-5.1); Sodium 140 mmol/L (136-145); Total Protein 6.3 g/dL (6.4-8.2)
== END 2021-09-05 23:59 | disposition home or self-care (01) ==
LOC: INF 08:00
PROVIDERS: PCP Family Medicine; Visit Provider Internal Medicine Hematology & Oncology
DX: C50.412 Malignant neoplasm of upper-outer quadrant of left female breast (principal); Z45.2 Encounter for adjustment and management of vascular access device; Z17.1 Estrogen receptor negative status [ER-]
CPT/HCPCS: 36591; 80053; 96523; 85025

== ENCOUNTER → 2021-09-24 01:25 | Outpatient (CLI) | payer MEDICARE, SELFPAY ==
--- NOTE | 2021-09-24 | DI.NM_ITS ---
Exam(s) MI BONE SCAN WHOLE BODY GRP EXAM: MI BONE SCAN WHOLE BODY GRP CLINICAL HISTORY: BONY METS C79.51 BREAST CANCER C50.412 Z17.1. COMPARISON: [facility] BONE SCAN WHOLE BODY GRP from 10/30/2020 TECHNIQUE: Whole body bone scan was performed with additional planar imaging at the cranial, thoraci c, and pelvic levels. Examination was performed with intravenous infusion of 25.0 millicuries of tech netium 99 labeled methylene diphosphonate. The patient reportedly has known breast carcinoma metastatic to bone. Examination is compared with [facility] recent prior study of October 30, 2020. Previously noted thoracic spine areas of increased uptake noted on prior examination are more intense on today's examination. Left shoulder girdle focus of increased uptake is decreased in prominence on today's exam. Additional a anteriorly visible foci of increased uptake seen in the sternal/parastern al region are probably grossly unchanged. Typical appearance of hip prostheses noted bilaterally. No gross new bony lesion seen. FINDINGS: Increased intensity of thoracic spine presumed metastatic lesions noted on [facility]'s [facility] in [facility] with examination of October 2020. no other significant change. IMPRESSION: DATA REPOSITORY:
[2021-09-24] MEDS: Omnipaque 350 MG/ML 100 ML BTL IJ (10:29)
[2021-09-24] MEDS: Normal Saline Flush 10 ML SYR IVP (10:30)
[2021-09-24] MEDS: Breeza Beverage 473 ML BTL PO ×2 (10:34→10:35)
[2021-09-24] MEDS: Omnipaque 350 MG/ML 50 ML BTL PO (10:35)
--- NOTE | 2021-09-24 10:40 | DI.CT_ITS ---
Exam(s) CT CHEST/ABD/PEL W EXAM: CT CHEST/ABD/PEL W CLINICAL HISTORY: BONY METS C79.51 BREAST CANER C50.412 Z17.1 TECHNIQUE: CT examination of the chest, abdomen, and pelvis was performed utilizing intravenous inf usion of 100 cc of Omnipaque 350 with biphasic hepatic imaging. Oral contrast was also administered. COMPARISON: CT CT CHEST/ABD/PEL W from 12/19/[address] CHEST PE CTA from 08/21/2021 FINDINGS: There are moderate to severe pulmonary emphysematous changes. No focal intrapulmonary mass or consol idation seen.. No pleural effusion. No pleural based mass. Note is made of a right-sided Port-A-Ca th. No mediastinal or hilar adenopathy. No axillary or supraclavicular adenopathy. Tracheobronchial fer e appears intact. No evidence of pulmonary embolic disease. Unremarkable appearance of thoracic aorta and major branch vessels. The liver appears normal with no focal hepatic lesion identified. Spleen is unremarkable in appearance. Pancreas appears intact. Previously noted 18 millimeter left adrenal nodule appears stable.. Kidneys are unremarkable in appearance with no renal mass, hydronephrosis, or nephrolithiasis. Abdominal aorta and major visceral branches appear intact. No focal bowel pathology. Appendix is normal. No evidence of diverticulitis. No abdominal or pelvic adenopathy. No significant abdominal wall hernia. Note is again made of multiple poorly defined presumed blastic metastatic lesions throughout the spin e and pelvis, no gross interval change in appearance comparison with prior examination of December 2020. . 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 No additional new significant findings. RADIATION DOSE DELIVERED: 1,779.68mGy.cm Total DLP 1,779.68mGy.cm Total DLP 21.6mGy CTDIvol RADIATION OPTIMIZATION: All CT scans at this facility use at least one of these dose optimization te chniques: automated exposure control; mA and/or kV adjustment per patient size (includes targeted exa ms where dose is matched to clinical indication); or iterative reconstruction.
== END ==
PROVIDERS: PCP Family Medicine; Visit Provider Internal Medicine Hematology & Oncology
DX: C79.51 Secondary malignant neoplasm of bone (principal); C50.412 Malignant neoplasm of upper-outer quadrant of left female breast; Z17.1 Estrogen receptor negative status [ER-]
CPT/HCPCS: 74177; 78306; 71260; J3490; Q9967

== ENCOUNTER 2021-09-24 01:43 | Outpatient (RCR) | payer MEDICARE, SELFPAY ==
[2021-09-11] MEDS: Normal Saline Flush 10 ML SYR IVP (08:28)
[2021-09-11 08:51] LABS: Abs Immature Grans 0.07 10^3/uL (0.0-0.06); Absolute Eosinophil Count 0.57 10^3/uL (0.0-0.7); Absolute Lymphocyte Count 2.32 10^3/uL (1.2-3.4); Absolute Monocyte Count 1.04 10^3/uL (0.1-0.8); Basophils % 0.5; Eosinophils % 5.2; HCT 41.9 % (36.0-46.0); HGB 13.5 g/dL (11.2-15.7); Immature Grans % 0.6; Lymphocytes % 21.2; MCHC 32.2 % (32.0-36.0); MCV 90.1 fL (80-95); MPV 10.4 fL (8.0-11.0); Monocytes % 9.5; Nucleated RBC 0 %; Platelet Count 356 10^3/uL (130-400); RBC 4.65 10^6/uL (3.93-5.22); RDW 15.8 % (11.7-14.6); RDW-SD 52.3 fL; WBC 10.94 10^3/uL (4.4-10.8)
[2021-09-11 08:52] LABS: Absolute Basophil Count 0.05 10^3/uL (0.0-0.2); Absolute Neutrophil Count 6.89 10^3/uL (1.2-6.7)
[2021-09-11 09:06] LABS: ALT 23 U/L (14-59); AST 9 U/L (15-37); Albumin 3.2 g/dL (3.4-5.0); Alkaline Phosphatase 53 U/L (46-116); BUN 23 mg/dL (7-18); Bilirubin, Total 0.5 mg/dL (0.2-1.0); CREATININE 1.2 mg/dL (0.55-1.02); Calcium 8.7 mg/dL (8.5-10.1); Chloride 106 mmol/L (98-107); Glucose 113 mg/dL (74-106); Potassium 3.7 mmol/L (3.5-5.1); Sodium 141 mmol/L (136-145); Total Protein 6.3 g/dL (6.4-8.2)
[2021-09-24] MEDS: Normal Saline Flush 10 ML SYR IVP (08:45)
[2021-09-24] MEDS: Heparin 500 UNITS/5 ML SYRINGE IV (08:46)
== END 2021-10-06 23:59 | disposition home or self-care (01) ==
LOC: INF 01:43
PROVIDERS: PCP Family Medicine; Visit Provider Internal Medicine Hematology & Oncology
DX: C50.412 Malignant neoplasm of upper-outer quadrant of left female breast (principal); Z17.1 Estrogen receptor negative status [ER-]; Z45.2 Encounter for adjustment and management of vascular access device
CPT/HCPCS: 36591; 74177; 78306; 80053; 96523; 71260; 85025; J3490; Q9967

== ENCOUNTER 2021-10-09 02:35 | Outpatient (RCR) | payer MEDICARE, SELFPAY ==
[2021-10-09] MEDS: Normal Saline Flush 10 ML SYR IVP (08:52)
[2021-10-09 09:15] LABS: Abs Immature Grans 0.08 10^3/uL (0.0-0.06); Absolute Basophil Count 0.03 10^3/uL (0.0-0.2); Absolute Eosinophil Count 0.16 10^3/uL (0.0-0.7); Absolute Lymphocyte Count 1.68 10^3/uL (1.2-3.4); Absolute Monocyte Count 0.87 10^3/uL (0.1-0.8); Absolute Neutrophil Count 8.58 10^3/uL (1.2-6.7); Basophils % 0.3; Eosinophils % 1.4; HCT 40.7 % (36.0-46.0); HGB 13.4 g/dL (11.2-15.7); Immature Grans % 0.7; Lymphocytes % 14.7; MCH 29.8 pg (27.0-33.0); MCHC 32.9 % (32.0-36.0); MCV 90.4 fL (80-95); MPV 9.8 fL (8.0-11.0); Monocytes % 7.6; Neutrophils % 75.3; Nucleated RBC 0 %; Platelet Count 297 10^3/uL (130-400); RDW 16.2 % (11.7-14.6); RDW-SD 54.1 fL
[2021-10-09 09:27] LABS: ALT 33 U/L (14-59); AST 17 U/L (15-37); Alkaline Phosphatase 69 U/L (46-116); Anion Gap 9.6 mmol/L (3-11); BUN 29 mg/dL (7-18); Bilirubin, Total 0.4 mg/dL (0.2-1.0); CO2 25.4 mmol/L (21.0-32.0); CREATININE 1.3 mg/dL (0.55-1.02); Calcium 10.1 mg/dL (8.5-10.1); Chloride 106 mmol/L (98-107); Estimated GFR 39.02 (mL/min/1.73m2); Glucose 121 mg/dL (74-106); Potassium 3.9 mmol/L (3.5-5.1); Sodium 141 mmol/L (136-145); Total Protein 6.3 g/dL (6.4-8.2)
[2021-10-09 15:04] LABS: TSH (W/Ref FT4) 4.16 uIU/mL (0.36-3.74)
[2021-10-09 15:25] LABS: FREE T4 1.33 ng/dL (0.76-1.46)
== END 2021-11-03 23:59 | disposition home or self-care (01) ==
LOC: INF 02:35
PROVIDERS: PCP Family Medicine; Visit Provider Internal Medicine Hematology & Oncology
DX: C50.412 Malignant neoplasm of upper-outer quadrant of left female breast (principal); E03.9 Hypothyroidism, unspecified; Z45.2 Encounter for adjustment and management of vascular access device
CPT/HCPCS: 36591; 80053; 84439; 84443; 85025

== ENCOUNTER 2021-11-04 00:30 | Outpatient (CLI) | payer MEDICARE, SELFPAY ==
[2021-11-04] MEDS: Normal Saline Flush 10 ML SYR IVP (10:45)
[2021-11-04] MEDS: Gadoterate meglumine 20 ML VIAL IVP (10:46)
--- NOTE | 2021-11-04 11:00 | DI.MRI_ITS ---
Exam(s) MR BRAIN WO/W EXAM: MR BRAIN WO/W CLINICAL HISTORY: BRAIN METS,C79.31 TECHNIQUE: Multiplanar multisequence MRI of the brain was performed. CONTRAST MATERIAL: IV Contrast: 20 mL of Dotarem contrast administered. COMPARISON: MR MR BRAIN WO/W from 08/25/2021 FINDINGS: The examination is limited due to patient motion artifact. VENTRICLES AND EXTRA AXIAL SPACES: Normal in size and morphology for the patient's age. HEMORRHAGE: None. CEREBRAL PARENCHYMA: No focus of restricted diffusion to suggest acute infarct. There has been interv al decrease in size of the enhancing lesion in the right caudate lobe region. It currently measures 1.3 x 2.1 cm. This compares to 1.5 x 2.6 cm. There has been a subsequent decrease in the degree of white matter edema associated with this lesion. There has been significant increased enhancement of the lesion involving the posterior medial left parietal lobe. This area now measures 2.8 cm transver se by 4.9 cm craniocaudad. This compares to a 2.0 transverse by 4 cm craniocaudad. There is also be en a significant increase in the surrounding white matter edema associated with this lesion. This do es exert increasing mass effect on the left lateral ventricle. No new enhancing lesions are identifi ed. There are several areas of hyperintense signal seen in the white matter likely reflecting small vessel ischemic disease. MIDLINE SHIFT: None. BRAINSTEM/CEREBELLUM: Normal. CALVARIUM: Normal. ENHANCEMENT: Please see the above section on the cerebral parenchyma. VISUALIZED PARANASAL SINUSES/MASTOIDS: Clear. [place]: Normal flow void. PITUITARY GLAND: Unremarkable. OTHER FINDINGS: IMPRESSION: 1. Interval decrease in size and surrounding edema of the right caudate lobe lesion. 2. Interval increase in size and surrounding edema of the lesion in the posterior medial left parieta l lobe. DATA REPOSITORY:
== END 2021-11-04 00:50 ==
PROVIDERS: PCP Family Medicine; Visit Provider Internal Medicine Hematology & Oncology
DX: C79.31 Secondary malignant neoplasm of brain (principal)
CPT/HCPCS: 36591; 70553; 80053; 86304; 82378; 85025; 86300

== ENCOUNTER 2021-11-04 01:41 | Outpatient (RCR) | payer MEDICARE, SELFPAY ==
[2021-11-04] MEDS: Normal Saline Flush 10 ML SYR IVP (08:30)
[2021-11-04] MEDS: Heparin 500 UNITS/5 ML SYRINGE IV (08:30)
[2021-11-04 08:44] LABS: Abs Immature Grans 0.15 10^3/uL (0.0-0.06); Absolute Basophil Count 0.03 10^3/uL (0.0-0.2); Absolute Eosinophil Count 0.06 10^3/uL (0.0-0.7); Absolute Monocyte Count 0.53 10^3/uL (0.1-0.8); Basophils % 0.2; Eosinophils % 0.5; HCT 38.3 % (36.0-46.0); HGB 12.4 g/dL (11.2-15.7); Immature Grans % 1.2; Lymphocytes % 5.4; MCH 30.5 pg (27.0-33.0); MCHC 32.4 % (32.0-36.0); MCV 94.1 fL (80-95); MPV 9.6 fL (8.0-11.0); Monocytes % 4.1; Neutrophils % 88.6; Nucleated RBC 0 %; Platelet Count 218 10^3/uL (130-400); RBC 4.07 10^6/uL (3.93-5.22); RDW-SD 58.9 fL; WBC 12.94 10^3/uL (4.4-10.8)
[2021-11-04 08:46] LABS: Absolute Neutrophil Count 11.46 10^3/uL (1.2-6.7)
[2021-11-04 09:12] LABS: ALT 28 U/L (14-59); AST 15 U/L (15-37); Albumin 2.9 g/dL (3.4-5.0); Alkaline Phosphatase 70 U/L (46-116); Anion Gap 10.9 mmol/L (3-11); BUN 28 mg/dL (7-18); Bilirubin, Total 0.5 mg/dL (0.2-1.0); CO2 23.1 mmol/L (21.0-32.0); CREATININE 1.1 mg/dL (0.55-1.02); Calcium 8.4 mg/dL (8.5-10.1); Chloride 109 mmol/L (98-107); Estimated GFR 47.32 (mL/min/1.73m2); Glucose 159 mg/dL (74-106); Sodium 143 mmol/L (136-145); Total Protein 5.7 g/dL (6.4-8.2)
[2021-11-04 17:11] LABS: CEA 1.4 ng/mL (See Note)
[2021-11-05 09:25] LABS: CA 27 29 43.7 U/mL (<38.0)
[2021-11-06 10:00] LABS: Cancer Ag 15-3 29 U/mL (<30)
== END 2021-12-04 23:59 | disposition home or self-care (01) ==
LOC: INF 01:41
PROVIDERS: PCP Family Medicine; Visit Provider Internal Medicine Hematology & Oncology
DX: C50.919 Malignant neoplasm of unspecified site of unspecified female breast (principal); C79.51 Secondary malignant neoplasm of bone; Z45.2 Encounter for adjustment and management of vascular access device
CPT/HCPCS: 36591; 80053; 86304; 82378; 85025; 86300

== ENCOUNTER 2021-12-17 15:30 | Outpatient (REF) | payer MEDICARE, SELFPAY ==
[2021-12-17 16:30] LABS: INR 1.1 (0.9-1.1); PTT Activated 21.6 sec (21.0-27.5)
[2021-12-17 17:32] LABS: Absolute Basophil Count 0.02 10^3/uL (0.0-0.2); Absolute Eosinophil Count 0.03 10^3/uL (0.0-0.7); Absolute Lymphocyte Count 0.52 10^3/uL (1.2-3.4); Basophils % 0.2; Eosinophils % 0.3; HCT 31.7 % (36.0-46.0); HGB 9.9 g/dL (11.2-15.7); Immature Grans % 0.9; Lymphocytes % 4.8; MCH 31.4 pg (27.0-33.0); MCHC 31.2 % (32.0-36.0); MCV 100.6 fL (80-95); MPV 9.8 fL (8.0-11.0); Monocytes % 3.7; Neutrophils % 90.1; Nucleated RBC 0 %; Platelet Count 173 10^3/uL (130-400); RBC 3.15 10^6/uL (3.93-5.22); RDW-SD 65.5 fL
[2021-12-17 17:34] LABS: Absolute Neutrophil Count 9.82 10^3/uL (1.2-6.7)
[2021-12-17 17:46] LABS: ALT 39 U/L (14-59); AST 21 U/L (15-37); Albumin 2.5 g/dL (3.4-5.0); Alkaline Phosphatase 65 U/L (46-116); Anion Gap 12.9 mmol/L (3-11); BUN 23 mg/dL (7-18); Bilirubin, Total 0.6 mg/dL (0.2-1.0); CO2 22.1 mmol/L (21.0-32.0); CREATININE 1.3 mg/dL (0.55-1.02); Calcium 8.6 mg/dL (8.5-10.1); Chloride 108 mmol/L (98-107); Estimated GFR 39.02 (mL/min/1.73m2); Glucose 173 mg/dL (74-106); Potassium 3.9 mmol/L (3.5-5.1); Sodium 143 mmol/L (136-145); TSH (W/Ref FT4) 0.56 uIU/mL (0.36-3.74)
== END 2021-12-17 15:31 | disposition home or self-care (01) ==
LOC: LBN 15:30
PROVIDERS: PCP Family Medicine; Visit Provider Nurse Practitioner Family
DX: E78.5 Hyperlipidemia, unspecified (principal); C71.3 Malignant neoplasm of parietal lobe; I62.00 Nontraumatic subdural hemorrhage, unspecified; E03.9 Hypothyroidism, unspecified; I82.402 Acute embolism and thrombosis of unspecified deep veins of left lower extremity; I26.99 Other pulmonary embolism without acute cor pulmonale
CPT/HCPCS: 80053; 84443; 85025; 85610; 85730

== ENCOUNTER 2021-12-18 15:13 | Inpatient (IN) | payer MEDICARE, SELFPAY ==
[2021-12-18] VITALS (44 sets, daily range): BP systolic 85–115; BP diastolic 31–57; PULSE 75–106; RESP 16–31; TEMP 36.3–36.6; O2SAT 95–98
--- NOTE | 2021-12-18 15:15 | DI.CT_ITS ---
Exam(s) CT HEAD WO EXAM: CT HEAD WO CLINICAL HISTORY: S/P Craniotomy 12/04, new bruising,. TECHNIQUE: Imaging Protocol: Axial computed tomography images with coronal and sagittal reformatted images were created and reviewed COMPARISON: CT CT HEAD WO from 08/21/2021 MR MR BRAIN WO/W from 08/25/2021 MR MR BRAIN WO/W from 11/04/2021 FINDINGS: Ventricles and Extra axial spaces: Normal in size and morphology for the patient's age. Hemorrhage: None. Cerebral parenchyma: The area of decreased attenuation adjacent to the frontal horn of the right late ral ventricle has decreased in size compared to the CT scan from 08/21/2021. There is now an area of encephalomalacia in the posterior left parietal lobe. This may reflect resection of the posterior p arietal mass. No definite acute intracranial infarct. Midline shift: None. Brainstem/Cerebellum: Normal. Calvarium: Since the prior examination the patient has undergone a left parietal craniotomy. Visualized Paranasal sinuses/Mastoids: Clear. Soft Tissues: There is soft tissue swelling overlying the left parietal bone in the area of the crani otomy. This likely reflects postsurgical change. IMPRESSION: 1. Status post left craniotomy. Findings suggestive of resection of the patient's left posterior par ietal mass. 2. Persistent area of decreased attenuation centered in the right basal ganglia region soft tissue sw elling overlying the left parietal bone which is likely postsurgical. 3. RADIATION DOSE DELIVERED: 742.66mGy.cm Total DLP DATA REPOSITORY: All CT scans at this facility are submitted to the National Radiology Data Registry (NRDR) Dose Index Registry (DIR) with the [employer] (A[employer]). RADIATION OPTIMIZATION: All CT scans at this facility use at least one of these dose optimization te chniques: automated exposure control; mA and/or kV adjustment per patient size (includes targeted exa ms where dose is matched to clinical indication); or iterative reconstruction.
--- NOTE | 2021-12-18 15:30 | DI.CT_ITS ---
Exam(s) CT CHEST/ABD/PEL W EXAM: CT CHEST/ABD/PEL W CLINICAL HISTORY: Fatigue, Hypotension TECHNIQUE: Imaging Protocol: Axial computed tomography images with coronal and sagittal reformatted images were created and reviewed CONTRAST MATERIAL: Intravenous: Omnipaque 350 Contrast volume:98 mL Oral: No COMPARISON: CT CT CHEST/ABD/PEL W from 09/24/2021 FINDINGS: CHEST: Tracheobronchial tree: Patent where visualized. Pulmonary parenchyma: No consolidation or dominant measurable mass. Emphysematous changes in the lung s. Visualized thyroid gland: Unremarkable. Mediastinum and [place]: No dominant adenopathy or fluid collection. The esophagus is unremarkable. The re is a small hiatal hernia. Pleura: No effusion or pneumothorax. Heart: The heart is not dilated. No coronary artery calcifications are seen. No pericardial effusion. Pulmonary arteries: The pulmonary arteries are not opacified well enough for evaluation of pulmonary emboli. No central pulmonary embolus is present. Aorta: Thoracic aorta non-dilated. Atherosclerosis. Lymph nodes: Within normal limits. Tubes, Catheters, and Lines: There is a right-sided indwelling central venous catheter. Soft tissues: Unremarkable. Bones:Osseous metastatic disease is present. ABDOMEN: Liver: Normal density. No measurable mass. Portal, Superior Mesenteric, and Splenic Veins: Unremarkable. Gallbladder and Biliary Tract: There is soft tissue seen in the neck of the gallbladder which may ref lect sludge. This is unchanged. No biliary ductal dilatation. Pancreas: Normal density, no abnormal calcifications or inflammatory process. Spleen: Normal. Adrenals: There is a stable left adrenal nodule. The right adrenal gland is unremarkable. Kidneys: Normal size, contour and axis. No radiodense stones or obstructive uropathy. No masses seen. Abdominal Aorta: Abdominal portion non-dilated. Atherosclerosis. Bowel: No obstruction or bowel wall thickening. No evidence of appendicitis. Diverticulosis of the s igmoid colon, but no evidence of acute diverticulitis. Peritoneal Cavity: No ascites, collection or mesenteric inflammatory response. No free air. Lymph Nodes: Within normal limits. Bones: Osseous metastatic disease is present. The patient has bilateral total hip replacements. Soft Tissues: Unremarkable. PELVIS: Bladder: Symmetric distention, no gross wall thickening. Reproductive Organs: Unremarkable as visualized. Lymph Nodes: Within normal limits. Bones: Within normal limits. IMPRESSION: 1. No acute change in the appearance of the abdomen and pelvis. 2. No acute change in the chest. 3. Osseous metastatic disease. RADIATION DOSE DELIVERED: 1,757.32mGy.cm Total DLP DATA REPOSITORY: All CT scans at this facility are submitted to the National Radiology Data Registry (NRDR) Dose Index Registry (DIR) with the [employer] (ACR). RADIATION OPTIMIZATION: All CT scans at this facility use at least one of these dose optimization te chniques: automated exposure control; mA and/or kV adjustment per patient size (includes targeted exa ms where dose is matched to clinical indication); or iterative reconstruction.
[2021-12-18] MEDS: Normal Saline 500 ML IV ×2 (15:45→18:34)
[2021-12-18 15:56] LABS: Abs Immature Grans 0.06 10^3/uL (0.0-0.06); Absolute Basophil Count 0.01 10^3/uL (0.0-0.2); Absolute Eosinophil Count 0.09 10^3/uL (0.0-0.7); Absolute Lymphocyte Count 0.51 10^3/uL (1.2-3.4); Absolute Monocyte Count 0.38 10^3/uL (0.1-0.8); Absolute Neutrophil Count 6.68 10^3/uL (1.2-6.7); Basophils % 0.1; Eosinophils % 1.2; HCT 30.6 % (36.0-46.0); HGB 9.7 g/dL (11.2-15.7); Immature Grans % 0.8; Lymphocytes % 6.6; MCH 31.3 pg (27.0-33.0); MCHC 31.7 % (32.0-36.0); MCV 98.7 fL (80-95); MPV 9.9 fL (8.0-11.0); Monocytes % 4.9; Neutrophils % 86.4; Nucleated RBC 0.3 % (0.0-0.3); Platelet Count 171 10^3/uL (130-400); RDW 18.3 % (11.7-14.6); RDW-SD 64.6 fL; WBC 7.73 10^3/uL (4.4-10.8)
--- NOTE | 2021-12-18 15:59 | RT.EKG_ITS ---
APPROVED REPORT Exam: Resting ECG Reason for Exam: hypotension Patient Location: E HR:79 bpm ECG Measurements Heart Rate 79 AXIS ME 181 P 31 QRSd 109 QRS -55 QT 377 T 102 QTc 434 Conclusion Sinus rhythm...normal P axis, V-rate 60- 99 Left anterior fascicular block...axis(240,-40), init forces inf Nonspecific T abnormalities, lateral leads...T <-0.10mV, I aVL V5 V6. Sinus. LAFB. No STEMI. I have reviewed and interpreted ECG and agree with software generated interpretation.
[2021-12-18 16:04] LABS: ALT 35 U/L (14-59); AST 21 U/L (15-37); Albumin 2.3 g/dL (3.4-5.0); Alkaline Phosphatase 70 U/L (46-116); Anion Gap 11.3 mmol/L (3-11); BUN 22 mg/dL (7-18); Bilirubin, Total 0.5 mg/dL (0.2-1.0); CO2 22.7 mmol/L (21.0-32.0); CREATININE 1.2 mg/dL (0.55-1.02); Chloride 109 mmol/L (98-107); Glucose 180 mg/dL (74-106); Magnesium 2.2 mg/dL (1.8-2.4); Potassium 3.6 mmol/L (3.5-5.1); Sodium 143 mmol/L (136-145)
[2021-12-18 16:23] LABS: INR 1.1 (0.9-1.1); PTT Activated 21.5 sec (21.0-27.5)
[2021-12-18 16:25] LABS: TSH 0.53 uIU/mL (0.36-3.74)
[2021-12-18 16:40] LABS: Troponin I 166 ng/L (<or=60)
[2021-12-18 16:47] LABS: Lactate 2.8 mmol/L (0.6-1.4)
[2021-12-18] MEDS: Omnipaque 350 MG/ML 100 ML BTL IJ (17:09)
--- NOTE | 2021-12-18 17:23 | DI.VRAD_ITS ---
PROCEDURE INFORMATION: Exam: CT Head Without Contrast Exam date and time: 12/18/2021 4:46 PM Age: 86 years old Clinical indication: Fatigue, hypotension TECHNIQUE: Imaging protocol: Computed tomography of the head without contrast. COMPARISON: MR BRAIN WO/W 11/04/2021 10:08 AM FINDINGS: Brain: Left superior parietal encephalomalacia with thickening of the overlying dura. 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 Chronic lacunar infarct involving the left basal ganglia. Age-related involutional changes and chronic microvascular ischemic disease. No evidence for acute transcortical infarct. No mass effect or midline shift. No extra-axial collection. No acute intracranial hemorrhage. Basal cisterns are patent. Cerebral ventricles: No ventriculomegaly. Paranasal sinuses: Visualized sinuses are unremarkable. No fluid levels. Mastoid air cells: Visualized mastoid air cells are well aerated. Orbital cavities: Bilateral cataract surgery. Bones/joints: Left superior parietal craniotomy. Soft tissues: Unremarkable. IMPRESSION: No evidence for acute transcortical infarct, acute intracranial hemorrhage, or mass effect. Dictated and Authenticated by: Esteban Contreras MD. Ordering:AMEENA Bennett MD
--- NOTE | 2021-12-18 17:54 | DI.VRAD_ITS ---
PROCEDURE INFORMATION: Exam: CT Chest With Contrast; Diagnostic Exam date and time: 12/18/2021 4:57 PM Age: 86 years old Clinical indication: Other: Fatigue, hypotension TECHNIQUE: Imaging protocol: Diagnostic computed tomography of the chest with contrast. 3D rendering (Not supervised by radiologist): MIP and/or 3D reconstructed images were created by the technologist. COMPARISON: 1. CT CHEST/ABD/PEL W 09/24/2021 10:[address] CHEST/ABD/PEL W 12/19/2020 12:11 PM FINDINGS: Tubes, catheters and devices: Right chest port with catheter tip located within the distal right brachiocephalic vein. Lungs: Moderate centrilobular emphysematous changes are present, unchanged. No suspicious parenchymal lung nodule. No consolidation. Pleural spaces: Unremarkable. No pneumothorax. No pleural effusion. Heart: See Aorta finding. Lymph nodes: Unremarkable. No enlarged lymph nodes. Aorta: Mild atherosclerotic calcifications of the aortic arch. Mild atherosclerotic calcifications of the aortic valve leaflets and mitral valve annulus. No pericardial effusion. No cardiomegaly. No significant atherosclerotic calcifications of the coronary arteries. Bones/joints: Stable ill-defined sclerotic lesions within T8, T9 and T11 suspicious for blastic metastatic osseous disease. Soft tissues: Unremarkable. IMPRESSION: 1. No evidence of acute cardiopulmonary process. 2. Stable ill-defined sclerotic lesions within T8, T9 and T11 suspicious for blastic metastatic osseous disease. Findings are unchanged since December 2020. 3. Moderate centrilobular emphysematous changes are present, unchanged. PROCEDURE INFORMATION: Exam: CT Abdomen And Pelvis With Contrast Exam date and time: 12/18/2021 4:57 PM Age: 86 years old Clinical indication: Other: Fatigue, hypotension TECHNIQUE: Imaging protocol: Computed tomography of the abdomen and pelvis with contrast. 3D rendering (Not supervised by radiologist): MIP and/or 3D reconstructed images were created by the technologist. COMPARISON: 1. CT CHEST/ABD/PEL W 09/24/2021 10:[address] CHEST/ABD/PEL W 12/19/2020 12:11 PM FINDINGS: Liver: Normal. No mass. Gallbladder and bile ducts: Ill-defined slightly hyperdense material within the neck of the gallbladder most likely compatible with sludge, unchanged. Otherwise the gallbladder is unremarkable. Pancreas: Normal. No ductal dilation. Spleen: Normal. No splenomegaly. Adrenal glands: Stable 1.8 cm left adrenal nodular lesion, most likely compatible with an adenoma. Kidneys and ureters: Normal. No hydronephrosis. Stomach and bowel: Unremarkable. No obstruction. No mucosal thickening. Appendix: No evidence of appendicitis. Intraperitoneal space: Unremarkable. No free air. No significant fluid collection. Arteries: Unremarkable. No abdominal aortic aneurysm. Lymph nodes: Unremarkable. No enlarged lymph nodes. Urinary bladder: Unremarkable as visualized. Reproductive: Enlarged round body and fundus of the uterus most likely secondary to a dominant fibroid, unchanged compared to prior. Bones/joints: Stable ill-defined sclerotic lesions within L2, L5, S1 and S2 suspicious for blastic metastatic osseous disease. Bilateral total hip arthroplasties. No evidence of hardware failure. Chronic fracture of the left inferior pubic ramus, unchanged. No evidence of acute fracture. Soft tissues: Unremarkable. IMPRESSION: 1. No evidence of acute abdominal or pelvic process. 2. Stable ill-defined sclerotic lesions within L2, L5, S1 and S2 suspicious for blastic metastatic osseous disease. Findings are unchanged since December 2020. 3. Ill-defined slightly hyperdense material within the neck of the gallbladder most likely compatible with sludge, unchanged. 4. Stable 1.8 cm left adrenal nodular lesion, most likely compatible with an adenoma. Dictated and Authenticated by: Parish Pineda MD. Ordering:AMEENA Bennett MD
[2021-12-18] MEDS: cefTRIAXone 2 GM/50 ML BAG IVPB (18:34)
[2021-12-18 18:52] LABS: Bilirubin Negative (Negative); Blood Trace-intact (Negative); Clarity Clear (Clear); Glucose Negative (Negative); Ketones Negative (Negative); Leukocyte Esterase Trace (Negative); Nitrite Positive (Negative); Urobilinogen 0.2 EU/dL (Up TO 0.2); pH 5.5 (5-8)
[2021-12-18 19:47] LABS: Bacteria Many HPF (Negative); C & S Indicated? Yes; Casts Negative LPF (Negative); Crystals Negative HPF (Negative); Epithelial Cells Negative HPF (Negative); Mucus Negative (Negative); Other Cells Negative (Negative); RBC Negative HPF (0-2); WBC 20-50 HPF (0-5)
--- NOTE | 2021-12-18 20:00 | RT.EKG_ITS ---
APPROVED REPORT Exam: Resting ECG Reason for Exam: weakness Patient Location: E HR:79 bpm ECG Measurements Heart Rate 79 AXIS MD 196 P 41 QRSd 108 QRS -49 QT 392 T 98 QTc 448 Conclusion Sinus rhythm...normal P axis, V-rate 60- 99 Left anterior fascicular block...axis(240,-40), init forces inf Nonspecific T abnormalities, lateral leads...T <-0.10mV, I aVL V5 V6
[2021-12-18 21:00] LABS: Troponin I 182 ng/L (<or=60)
--- NOTE | 2021-12-18 22:37 | ED.GENADUL_ITS ---
Discharge Plan Disposition Patient Disposition: HOME Condition: Stable Discharge Details Clinical Impression: Urinary tract infection, NSTEMI (non-ST elevated myocardial infarction), Sepsis Primary Care Provider: Rajwinder Harris ED Provider: Lia Taylor Discharge Data Discharge Date/Time-TO BE ENTERED AT DEPARTURE: 12/18/21 23:56 Medical Decision Making Patient initially was hypotensive, 80/60, she was given several fluid boluses and blood pressure improved Her mentation had is intact and she denies any pain She denies any dark stools Hemoglobin 9.7, hematocrit 30 point, not grossly changed from yesterday's assessment Lactate 2.8 BUN of 22, creatinine 1.2, unchanged from prior urinalysis positive nitrates, 20-50 white blood cells She got checked in addition to 1.5 days of fluid administered for adjusted BMI dosing for sepsis Greater than 65 Troponin elevated at 1 6, EKG does not show acute changes Repeat troponin EKG, troponin of 182, repeat EKG appears actually slightly improved Again patient remains a tabetic further chest pain breath and does not wish to have cardiac catheterization or any advanced measures performed She has a DNR/DNI Discussed CT of head and chest abdomen and pelvis with there is a [facility], neurosurgery, Dr. Henriquez who does not recommend any additional neurosurgical intervention place patient should be admitted for urosepsis does not need neurosurgical assessment at this time Secondary to capacity we are additionally unable to admit this patient to the hospital therefore we did contact numerous hospitals across [place], [facility], all of which were unable to accept the patient secondary to capacity The bed did subsequently become available to the patient is able to be admitted to this hospital for urosepsis at this time She is comfortable with this plan Her mentation is intact her blood pressure has improved Dr. Lerma is willing to admit, he will call. Patient Medical Records Medical records reviewed: Yes I reviewed the patient's medical records. Lab Data Lab results reviewed: Yes I reviewed the patient's lab results. HPI General Date/Time Provider Initiated Documentation: 12/18/21 15:19 . HPI Narrative: This complex 86-year-old female with history of arrhythmia, PVCs, hypertension, hypothyroidism parietal mass present with report transient episode diplopia and reported hypotension from the rehabilitation center where she currently is residing. She is status post parietal craniotomy for tumor at [facility] approximately 2 weeks prior to arrival in the emergency department today. She states she feels weak but denies any other complaints at this time. She specifically denies any chest pain, shortness of breath, headache, fever, chills. She states that her symptoms began just prior to arrival and that diplopia with horizontal nature and lasted a minute or 2. She denies any speech or sensation change, change in hearing or vision, patient or speech change associated. She denies any current visual abnormalities. She denies any recent falls or injuries. She is taking Decadron and Keppra which were previously prescribed at [facility]. She denies any blood in her stool. Related Data Home Medications Medication Instructions Recorded Confirmed multivitamin (Multiple Vitamins) 1 tab PO DAILY tab 04/04/17 12/18/21 pertuzumab 420 mg/14 mL (30 mg/mL) 420 mg IV Q3W 11/10/18 07/11/21 intravenous solution denosumab 120 mg/1.7 mL (70 mg/mL) 120 mg SUB-Q .COMPLEX 01/08/20 07/11/21 subcutaneous solution (Xgeva) omeprazole 20 mg tablet,delayed 20 mg PO DAILY 01/08/20 12/18/21 release levothyroxine 112 mcg tablet 112 mcg PO DAILY tab 07/11/21 07/11/21 losartan 50 mg tablet 50 mg PO DAILY 07/11/21 12/18/21 trastuzumab 440 mg intravenous 150 mg IV 07/11/21 07/11/21 solution (Herceptin) levofloxacin 750 mg tablet 750 mg PO DAILY #7 tab 08/21/21 amantadine HCl 100 mg tablet 100 mg PO BID 12/18/21 12/18/21 apixaban 5 mg tablet 5 mg PO BID 12/18/21 12/18/21 dexamethasone 4 mg tablet 1 mg PO DAILY 12/18/21 levetiracetam 500 mg tablet 500 mg PO BID 12/18/21 12/18/21 zinc oxide 1 applic TOPICAL DAILY 12/18/21 12/18/21 Previous Rx's Medication Instructions Recorded multivitamin (Multiple Vitamins) 1 tab PO DAILY tab 04/04/17 levofloxacin 750 mg tablet 750 mg PO DAILY #7 tab 08/21/21 Allergies Allergy/AdvReac Type Severity Reaction Status Date / Time No Known Drug Allergies Allergy Verified 12/18/21 22:57 milk AdvReac Unknown diarrhea Verified 12/18/21 22:57 General Stated Complaint: CVA/TIA MONY: 3 Review of Systems All systems reviewed & are unremarkable except as noted in HPI and below PFSH All Active Problems Palliative care patient (Acute) Metastatic breast cancer (Acute) NSTEMI (non-ST elevated myocardial infarction) (Acute) Falls (Acute) General weakness (Acute) Cough (Acute) Urinary tract infection (Acute) Frontal mass of brain (Acute) Cardiac arrhythmia (Acute 06/05/14) 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 mets to lumbar spine, sacrum and ribs on 09/2015 bone scan b. HER2/odalsy positive c. currently receiving chemotherapy including trastuxumab through [facility] and Dr. Cr NSVT (nonsustained ventricular tachycardia) (Chronic) a. h/o NSVT 03/2015 - evaluated at [facility] and did not have any therapy modifications made Lichen sclerosus of female genitalia (Chronic) a. vulva H/O surgical procedure (Chronic) a. normal cardiac cath 2012 b. left breast biopsy and lumpectomy c. total hip replacements in 2009 and 2013 d. sentinel lymph node biopsy along with lumpectomy e. right port-a-cath placement 09/23/[address] Lockhart Medical History (Updated 12/19/21 @ 17:57 by LAW Lanza) Cardiac arrhythmia asymptomatic. incidental finding. s/p eval in [facility]. no intervention required. 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 eventually metastisized. Father Diabetes Sister Breast cancer Sister Breast cancer Lung cancer Social History Smoking/Tobacco Use Status: Former Tobacco Use Smoking risk assessment performed?: Yes Alcohol Intake: never Drug use: Never Substance use type: does not use Current gender identity: female Do you feel safe at home: Yes Do you feel safe in your relationship?: Yes Exam Const General: cooperative, no acute distress and ill appearing Orientation: alert and oriented x3 [facility] Head images: 1. ecchymosis no wound dehiscense no hemotympanum Mouth: oral mucosae normal Eyes Pupils: PERRL EOM: EOM intact bilaterally Neck Other: no carotid bruit , no crepitus Resp Effort & Inspection: normal respiratory effort Auscultation: clear to auscultation bilaterally Cardio Rate: regular rate Rhythm: regular rhythm GI Other: Nontender abdominal exam, ecchymosis noted, several small areas Neuro General: patient alert and patient oriented x3 Cranial Nerves: CN's II-XI intact bilaterally Speech: speech normal Motor: strength 5/5 throughout Sensory Exam: no sensory deficits noted Extrem Other: Distal pulses intact Course Vital Signs Vital signs: Vital Signs Temperature 36.3 C L 12/18/21 15:18 Pulse 81 12/18/21 15:18 Respiratory Rate 18 12/18/21 15:18 Blood Pressure 111/54 L 12/18/21 15:18 Pulse Oximetry 97 12/18/21 15:18 Temperature 36.6 C 12/18/21 17:27 Temperature Source Temporal Artery Scan 12/18/21 15:18 Pulse 80 12/18/21 21:55 Respiratory Rate 18 12/18/21 21:55 Respiratory Effort 12/18/21 15:56 Respiratory Depth Normal 12/18/21 15:56 Blood Pressure 106/50 L 12/18/21 21:55 Blood Pressure Position Supine 12/18/21 15:18 Pulse Oximetry 97 12/18/21 21:55 Oxygen Delivery Method Room Air 12/18/21 15:18 Oxygen Flow Rate 0 12/18/21 15:18 Lab/Test Results Lab/Test Results: 12/18/21 20:53 Blood Blood Culture - Pending 12/18/21 20:35 Blood Blood Culture - Pending 12/18/21 18:31 Urine - Reflex from Ua Urine Culture - Pending Laboratory Tests Range/Units 12/18/21 12/18/21 12/18/21 15:40 15:40 15:40 WBC (4.4-10.8) 10^3/uL 7.73 RBC (3.93-5.22) 10^6/uL 3.10 L Hgb (11.2-15.7) g/dL 9.7 L Hct (36.0-46.0) % 30.6 L MCV (80-95) fL 98.7 H MCH (27.0-33.0) pg 31.3 MCHC (32.0-36.0) % 31.7 L RDW (11.7-14.6) % 18.3 H Plt Count (130-400) 10^3/uL 171 MPV (8.0-11.0) fL 9.9 Immature Gran % 0.8 Neutrophils % 86.4 Lymphocytes % 6.6 Monocytes % 4.9 Eosinophils % 1.2 Basophils % 0.1 Nucleated RBC % (0.0-0.3) % 0.3 Absolute Neutrophils (1.2-6.7) 10^3/uL 6.68 Absolute Lymphocytes (1.2-3.4) 10^3/uL 0.51 L Absolute Monocytes (0.1-0.8) 10^3/uL 0.38 Absolute Eosinophils (0.0-0.7) 10^3/uL 0.09 Absolute Basophils (0.0-0.2) 10^3/uL 0.01 PT (9.3-11.0) sec 11.0 INR (0.9-1.1) 1.1 APTT (21.0-27.5) sec 21.5 VBG Lactate (0.6-1.4) mmol/L Sodium (136-145) mmol/L 143 Potassium (3.5-5.1) mmol/L 3.6 Chloride (98-107) mmol/L 109 H Carbon Dioxide (21.0-32.0) mmol/L 22.7 Anion Gap (3-11) mmol/L 11.3 H BUN (7-18) mg/dL 22 H Creatinine (0.55-1.02) mg/dL 1.2 H Estimated GFR/1.73 m2 (mL/min/1.73m2) 42.80 Glucose (74-106) mg/dL 180 H Calcium (8.5-10.1) mg/dL 8.0 L Magnesium (1.8-2.4) mg/dL 2.2 Total Bilirubin (0.2-1.0) mg/dL 0.5 AST (15-37) U/L 21 ALT (14-59) U/L 35 Alkaline Phosphatase (46-116) U/L 70 Troponin I (<or=60) ng/L Total Protein (6.4-8.2) g/dL 5.0 L Albumin (3.4-5.0) g/dL 2.3 L TSH (0.36-3.74) uIU/mL Urine Color (Yellow) Urine Clarity (Clear) Urine pH (5-8) Ur Specific Simpson (1.005-1.025) Urine Protein (Negative) mg/dL Urine Ketones (Negative) mg/dL Urine Blood (Negative) Urine Nitrite (Negative) Urine Bilirubin (Negative) Urine Urobilinogen (Up TO 0.2) EU/dL Ur Leukocyte Esterase (Negative) Urine RBC (0-2) HPF Urine WBC (0-5) HPF Ur Epithelial Cells (Negative) HPF Urine Crystals (Negative) HPF Urine Bacteria (Negative) HPF Urine Casts (Negative) LPF Urine Mucus (Negative) Urine Other (Negative) Ur Culture Indicated? Urine Glucose (Negative) mg/dL Patient ABO/Rh Antibody Screen Range/Units 12/18/21 12/18/21 12/18/21 15:40 16:30 16:30 WBC (4.4-10.8) 10^3/uL RBC (3.93-5.22) 10^6/uL Hgb (11.2-15.7) g/dL Hct (36.0-46.0) % MCV (80-95) fL MCH (27.0-33.0) pg MCHC (32.0-36.0) % RDW (11.7-14.6) % Plt Count (130-400) 10^3/uL MPV (8.0-11.0) fL Immature Gran % Neutrophils % Lymphocytes % Monocytes % Eosinophils % Basophils % Nucleated RBC % (0.0-0.3) % Absolute Neutrophils (1.2-6.7) 10^3/uL Absolute Lymphocytes (1.2-3.4) 10^3/uL Absolute Monocytes (0.1-0.8) 10^3/uL Absolute Eosinophils (0.0-0.7) 10^3/uL Absolute Basophils (0.0-0.2) 10^3/uL PT (9.3-11.0) sec INR (0.9-1.1) APTT (21.0-27.5) sec VBG Lactate (0.6-1.4) mmol/L 2.8 H* Sodium (136-145) mmol/L Potassium (3.5-5.1) mmol/L Chloride (98-107) mmol/L Carbon Dioxide (21.0-32.0) mmol/L Anion Gap (3-11) mmol/L BUN (7-18) mg/dL Creatinine (0.55-1.02) mg/dL Estimated GFR/1.73 m2 (mL/min/1.73m2) Glucose (74-106) mg/dL Calcium (8.5-10.1) mg/dL Magnesium (1.8-2.4) mg/dL Total Bilirubin (0.2-1.0) mg/dL AST (15-37) U/L ALT (14-59) U/L Alkaline Phosphatase (46-116) U/L Troponin I (<or=60) ng/L 166 H* Total Protein (6.4-8.2) g/dL Albumin (3.4-5.0) g/dL TSH (0.36-3.74) uIU/mL 0.53 Urine Color (Yellow) Urine Clarity (Clear) Urine pH (5-8) Ur Specific Simpson (1.005-1.025) Urine Protein (Negative) mg/dL Urine Ketones (Negative) mg/dL Urine Blood (Negative) Urine Nitrite (Negative) Urine Bilirubin (Negative) Urine Urobilinogen (Up TO 0.2) EU/dL Ur Leukocyte Esterase (Negative) Urine RBC (0-2) HPF Urine WBC (0-5) HPF Ur Epithelial Cells (Negative) HPF Urine Crystals (Negative) HPF Urine Bacteria (Negative) HPF Urine Casts (Negative) LPF Urine Mucus (Negative) Urine Other (Negative) Ur Culture Indicated? Urine Glucose (Negative) mg/dL Patient ABO/Rh O Positive Antibody Screen NEGATIVE Range/Units 12/18/21 12/18/21 18:31 20:35 WBC (4.4-10.8) 10^3/uL RBC (3.93-5.22) 10^6/uL Hgb (11.2-15.7) g/dL Hct (36.0-46.0) % MCV (80-95) fL MCH (27.0-33.0) pg MCHC (32.0-36.0) % RDW (11.7-14.6) % Plt Count (130-400) 10^3/uL MPV (8.0-11.0) fL Immature Gran % Neutrophils % Lymphocytes % Monocytes % Eosinophils % Basophils % Nucleated RBC % (0.0-0.3) % Absolute Neutrophils (1.2-6.7) 10^3/uL Absolute Lymphocytes (1.2-3.4) 10^3/uL Absolute Monocytes (0.1-0.8) 10^3/uL Absolute Eosinophils (0.0-0.7) 10^3/uL Absolute Basophils (0.0-0.2) 10^3/uL PT (9.3-11.0) sec INR (0.9-1.1) APTT (21.0-27.5) sec VBG Lactate (0.6-1.4) mmol/L Sodium (136-145) mmol/L Potassium (3.5-5.1) mmol/L Chloride (98-107) mmol/L Carbon Dioxide (21.0-32.0) mmol/L Anion Gap (3-11) mmol/L BUN (7-18) mg/dL Creatinine (0.55-1.02) mg/dL Estimated GFR/1.73 m2 (mL/min/1.73m2) Glucose (74-106) mg/dL Calcium (8.5-10.1) mg/dL Magnesium (1.8-2.4) mg/dL Total Bilirubin (0.2-1.0) mg/dL AST (15-37) U/L ALT (14-59) U/L Alkaline Phosphatase (46-116) U/L Troponin I (<or=60) ng/L 182 H* Total Protein (6.4-8.2) g/dL Albumin (3.4-5.0) g/dL TSH (0.36-3.74) uIU/mL Urine Color (Yellow) Yellow Urine Clarity (Clear) Clear Urine pH (5-8) 5.5 Ur Specific Simpson (1.005-1.025) 1.020 Urine Protein (Negative) mg/dL Negative Urine Ketones (Negative) mg/dL Negative Urine Blood (Negative) Trace-intact H Urine Nitrite (Negative) Positive H Urine Bilirubin (Negative) Negative Urine Urobilinogen (Up TO 0.2) EU/dL 0.2 Ur Leukocyte Esterase (Negative) Trace H Urine RBC (0-2) HPF Negative Urine WBC (0-5) HPF 20-50 H Ur Epithelial Cells (Negative) HPF Negative Urine Crystals (Negative) HPF Negative Urine Bacteria (Negative) HPF Many Urine Casts (Negative) LPF Negative Urine Mucus (Negative) Negative Urine Other (Negative) Negative Ur Culture Indicated? Yes Urine Glucose (Negative) mg/dL Negative Patient ABO/Rh Antibody Screen Critical Care Time Critical Care Time Attestation: 60 minutes of critical care time, telemetry monitoring, IV fluid resuscitation, IV antibiotics, CT imaging, consultation with numerous providers including [facility] neurosurgery, numerous phone calls for placement, hospitalist admission,
[2021-12-18 22:54] LABS: Source Nasal/Nares
--- NOTE | 2021-12-18 23:16 | W.PM.HP.N ---
Assessment and Plan Assessment and plan (1) General weakness: Status: Acute Assessment and plan: Weakness is likely due to the urinary tract infection. I am going to hold on renewing her losartan. Her other medicines will be continued. (2) Urinary tract infection: Status: Acute Assessment and plan: Urine culture is pending. Urinalysis is suggestive of UTI. She also has an elevated lactate which likely goes along with the UTI. Her lactate will be repeated. She will be placed on ceftriaxone daily. (3) NSTEMI (non-ST elevated myocardial infarction): Status: Acute Assessment and plan: Her troponins have been elevated at 162 and 182. Will be rechecked again in the morning. She does not want any cardiac catheterization or other treatment for heart. History of Present Illness History of Present Illness Chief Complaint: Weakness and low blood pressure Narrative: This 86-year-old female came to the hospital with chief complaint weakness and low blood pressure. She has been a resident at [facility] and [facility] for about the last week. On December 03 she went to [facility] for a craniotomy and removal of some of a tumor however left parietal area. The biopsy showed the metastatic breast cancer. She had been receiving treatment for the breast cancer but the treatment was stopped recently. Plan is for her to get stronger and and then get radiation therapy to the brain. She feels fine at present time. She was evaluated emergency department was found to have a urinary tract infection and was given ceftriaxone intravenously. She is also noted to have an elevated lactate. She did receive some intravenous fluids. She is also noted to have elevated troponins and some electrocardiographic changes. She does not want to go to [facility] for any heart catheterization or other kind of heart treatment. Prior to her craniotomy she was having problems standing up because of weakness. She has not been having any urinary symptoms. Review of Systems Constitutional Constitutional: Denies chills, Denies fever(s), Denies headache(s) and Reports weakness ENT Ears, Nose, Mouth, and Throat: Denies dysphagia, Denies vertigo, Reports dizziness and Denies headache(s) Cardiovascular Cardiovascular: Denies chest pain and Denies dyspnea Respiratory Respiratory: Denies cough, Denies pain on inspiration and Denies dyspnea Gastrointestinal Gastrointestinal: Denies abdominal pain, Denies dysphagia, Denies diarrhea, Denies loose stools, Denies nausea and Denies vomiting Genitourinary Genitourinary: Denies difficulty voiding and Denies post void dribbling Musculoskeletal Musculoskeletal: Denies abnormal gait Neurologic Neurologic: Denies abnormal gait, Denies confusion, Denies vertigo, Reports dizziness, Denies headache(s), Denies convulsions and Reports weakness Psychiatric Psychiatric: Denies confusion PFSH All Active Problems NSTEMI (non-ST elevated myocardial infarction) (Acute) Falls (Acute) General weakness (Acute) Cough (Acute) Urinary tract infection (Acute) Frontal mass of brain (Acute) Cardiac arrhythmia (Acute 06/05/14) 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 mets to lumbar spine, sacrum and ribs on 09/2015 bone scan b. HER2/odalys positive c. currently receiving chemotherapy including trastuxumab through [facility] and Dr. Cr NSVT (nonsustained ventricular tachycardia) (Chronic) a. h/o NSVT 03/2015 - evaluated at [facility] and did not have any therapy modifications made Lichen sclerosus of female genitalia (Chronic) a. vulva H/O surgical procedure (Chronic) a. normal cardiac cath 2012 b. left breast biopsy and lumpectomy c. total hip replacements in 2009 and 2013 d. sentinel lymph node biopsy along with lumpectomy e. right port-a-cath placement 09/23/[address] Lockhart Medical History (Updated 12/18/21 @ 23:24 by Ravindra Lerma MD) Cardiac arrhythmia asymptomatic. incidental finding. s/p eval in [facility]. no intervention required. 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 eventually metastisized. Father Diabetes Sister Breast cancer Sister Breast cancer Lung cancer Social History Smoking/Tobacco Use Status: Former Tobacco Use Smoking risk assessment performed?: Yes Alcohol Intake: never Drug use: Never Substance use type: does not use Do you feel safe at home: Yes Do you feel safe in your relationship?: Yes Meds Allergies and Home Medications Allergies Allergy/AdvReac Type Severity Reaction Status Date / Time No Known Drug Allergies Allergy Verified 12/18/21 22:57 milk AdvReac Unknown diarrhea Verified 12/18/21 22:57 Home Medications Medication Instructions Recorded Confirmed Type multivitamin (Multiple Vitamins) 1 tab PO DAILY tab 04/04/17 12/18/21 Rx pertuzumab 420 mg/14 mL (30 mg/mL) 420 mg IV Q3W 11/10/18 07/11/21 History intravenous solution denosumab 120 mg/1.7 mL (70 mg/mL) 120 mg SUB-Q .COMPLEX 01/08/20 07/11/21 History subcutaneous solution (Xgeva) omeprazole 20 mg tablet,delayed 20 mg PO DAILY 01/08/20 12/18/21 History release levothyroxine 112 mcg tablet 112 mcg PO DAILY tab 07/11/21 07/11/21 History losartan 50 mg tablet 50 mg PO DAILY 07/11/21 12/18/21 History trastuzumab 440 mg intravenous 150 mg IV 07/11/21 07/11/21 History solution (Herceptin) levofloxacin 750 mg tablet 750 mg PO DAILY #7 tab 08/21/21 Rx amantadine HCl 100 mg tablet 100 mg PO BID 12/18/21 12/18/21 History apixaban 5 mg tablet 5 mg PO BID 12/18/21 12/18/21 History dexamethasone 4 mg tablet 1 mg PO DAILY 12/18/21 History levetiracetam 500 mg tablet 500 mg PO BID 12/18/21 12/18/21 History zinc oxide 1 applic TOPICAL DAILY 12/18/21 12/18/21 History Exam Const General: cooperative, comfortable, no acute distress and not ill appearing Nutritional Appearance: overweight Eyes General: appearance normal, both eyes and all related structures Neck Neck: normal visual inspection, no lymphadenopathy and no JVD Thyroid: thyroid normal Resp Auscultation: clear to auscultation bilaterally Cardio Rate: regular rate Rhythm: regular rhythm Heart Sounds: S1 normal, S2 normal, no gallops and no murmurs GI Palpation: soft, no hepatosplenomegaly, not firm and nontender Neuro General: patient alert, patient awake and patient oriented x3 Cognition: normal cognition Extrem General: normal to inspection, no clubbing, no cyanosis and no edema Results Labs Result diagrams: 12/18/21 15:40 12/18/21 15:40 Labs: Laboratory Results - last 24 hr 12/18/21 12/18/21 12/18/21 15:40 15:40 15:40 WBC 7.73 RBC 3.10 L Hgb 9.7 L Hct 30.6 L MCV 98.7 H MCH 31.3 MCHC 31.7 L RDW 18.3 H Plt Count 171 MPV 9.9 Immature Gran % 0.8 Neutrophils % 86.4 Lymphocytes % 6.6 Monocytes % 4.9 Eosinophils % 1.2 Basophils % 0.1 Nucleated RBC % 0.3 Absolute Neutrophils 6.68 Absolute Lymphocytes 0.51 L Absolute Monocytes 0.38 Absolute Eosinophils 0.09 Absolute Basophils 0.01 PT 11.0 INR 1.1 APTT 21.5 VBG Lactate Sodium 143 Potassium 3.6 Chloride 109 H Carbon Dioxide 22.7 Anion Gap 11.3 H BUN 22 H Creatinine 1.2 H Estimated GFR/1.73 m2 42.80 Glucose 180 H Calcium 8.0 L Magnesium 2.2 Total Bilirubin 0.5 AST 21 ALT 35 Alkaline Phosphatase 70 Troponin I Total Protein 5.0 L Albumin 2.3 L TSH Urine Color Urine Clarity Urine pH Ur Specific [place] Urine Protein Urine Ketones Urine Blood Urine Nitrite Urine Bilirubin Urine Urobilinogen Ur Leukocyte Esterase Urine RBC Urine WBC Ur Epithelial Cells Urine Crystals Urine Bacteria Urine Casts Urine Mucus Urine Other Ur Culture Indicated? Urine Glucose COVID-19 Source Patient ABO/Rh Antibody Screen 12/18/21 12/18/21 12/18/21 15:40 16:30 16:30 WBC RBC Hgb Hct MCV MCH MCHC RDW Plt Count MPV Immature Gran % Neutrophils % Lymphocytes % Monocytes % Eosinophils % Basophils % Nucleated RBC % Absolute Neutrophils Absolute Lymphocytes Absolute Monocytes Absolute Eosinophils Absolute Basophils PT INR APTT VBG Lactate 2.8 H* Sodium Potassium Chloride Carbon Dioxide Anion Gap BUN Creatinine Estimated GFR/1.73 m2 Glucose Calcium Magnesium Total Bilirubin AST ALT Alkaline Phosphatase Troponin I 166 H* Total Protein Albumin TSH 0.53 Urine Color Urine Clarity Urine pH Ur Specific [place] Urine Protein Urine Ketones Urine Blood Urine Nitrite Urine Bilirubin Urine Urobilinogen Ur Leukocyte Esterase Urine RBC Urine WBC Ur Epithelial Cells Urine Crystals Urine Bacteria Urine Casts Urine Mucus Urine Other Ur Culture Indicated? Urine Glucose COVID-19 Source Patient ABO/Rh O Positive Antibody Screen NEGATIVE 12/18/21 12/18/21 12/18/21 18:31 20:35 22:43 WBC RBC Hgb Hct MCV MCH MCHC RDW Plt Count MPV Immature Gran % Neutrophils % Lymphocytes % Monocytes % Eosinophils % Basophils % Nucleated RBC % Absolute Neutrophils Absolute Lymphocytes Absolute Monocytes Absolute Eosinophils Absolute Basophils PT INR APTT VBG Lactate Sodium Potassium Chloride Carbon Dioxide Anion Gap BUN Creatinine Estimated GFR/1.73 m2 Glucose Calcium Magnesium Total Bilirubin AST ALT Alkaline Phosphatase Troponin I 182 H* Total Protein Albumin TSH Urine Color Yellow Urine Clarity Clear Urine pH 5.5 Ur Specific [place] 1.020 Urine Protein Negative Urine Ketones Negative Urine Blood Trace-intact H Urine Nitrite Positive H Urine Bilirubin Negative Urine Urobilinogen 0.2 Ur Leukocyte Esterase Trace H Urine RBC Negative Urine WBC 20-50 H Ur Epithelial Cells Negative Urine Crystals Negative Urine Bacteria Many Urine Casts Negative Urine Mucus Negative Urine Other Negative Ur Culture Indicated? Yes Urine Glucose Negative COVID-19 Source Nasal/Nares Patient ABO/Rh Antibody Screen Last Vital Signs Temp 36.6 C 12/18/21 17:27 Pulse 78 12/18/21 22:01 Resp 18 12/18/21 22:40 BP 110/38 L 12/18/21 22:01 Pulse Ox 97 12/18/21 21:55
[2021-12-18 23:22] LABS: Lactate 1.1 mmol/L (0.6-1.4)
[2021-12-18 23:39] LABS: COVID-19 PCR Negative (Negative)
[2021-12-19 00:12] VITALS: BP 106/72; PULSE 79; RESP 18; TEMP 36.4; O2SAT 95
[2021-12-19 00:57] VITALS: PULSE 81
[2021-12-19] MEDS: Normal Saline 1,000 ML 125 ML IV ×2 (03:08→11:54)
--- NOTE | 2021-12-19 04:29 | NUR.NOTE ---
Right chest port-a-cath was accessed using sterile technique. Labs were drawn form same port.
[2021-12-19 04:40] LABS: Troponin I 172 ng/L (<or=60)
[2021-12-19 05:37] VITALS: BP 120/66; PULSE 77; RESP 18; TEMP 35.7; O2SAT 96
[2021-12-19] MEDS: Levothyroxine 112 MCG TAB PO (05:41)
[2021-12-19 06:44] LABS: Abs Immature Grans 0.04 10^3/uL (0.0-0.06); Absolute Basophil Count 0.01 10^3/uL (0.0-0.2); Absolute Eosinophil Count 0.09 10^3/uL (0.0-0.7); Absolute Lymphocyte Count 0.75 10^3/uL (1.2-3.4); Absolute Monocyte Count 0.28 10^3/uL (0.1-0.8); Absolute Neutrophil Count 3.77 10^3/uL (1.2-6.7); Basophils % 0.2; Eosinophils % 1.8; HCT 26.6 % (36.0-46.0); HGB 8.3 g/dL (11.2-15.7); Immature Grans % 0.8; Lymphocytes % 15.2; MCH 31.2 pg (27.0-33.0); MCHC 31.2 % (32.0-36.0); MPV 9.8 fL (8.0-11.0); Monocytes % 5.7; Neutrophils % 76.3; Platelet Count 130 10^3/uL (130-400); RBC 2.66 10^6/uL (3.93-5.22); RDW 18.1 % (11.7-14.6); RDW-SD 64.1 fL; WBC 4.94 10^3/uL (4.4-10.8)
[2021-12-19 06:55] LABS: Anion Gap 9.4 mmol/L (3-11); BUN 17 mg/dL (7-18); CO2 22.6 mmol/L (21.0-32.0); CREATININE 0.8 mg/dL (0.55-1.02); Calcium 7.4 mg/dL (8.5-10.1); Chloride 115 mmol/L (98-107); Glucose 92 mg/dL (74-106); Sodium 147 mmol/L (136-145)
[2021-12-19 07:01] VITALS: PULSE 78
[2021-12-19 07:11] LABS: Potassium 2.9 mmol/L (3.5-5.1); Troponin I 168 ng/L (<or=60)
[2021-12-19 07:16] VITALS: BP 133/79; PULSE 100; RESP 14; TEMP 36.7; O2SAT 97
[2021-12-19] MEDS: Dexamethasone 4 MG TAB 1 MG PO (08:13)
[2021-12-19] MEDS: Omeprazole 20 MG CAPCR PO (08:13)
[2021-12-19] MEDS: levETIRAcetam 500 MG TAB PO (08:13)
[2021-12-19] MEDS: Potassium Chloride 20 MEQ TABCR 40 MEQ PO (09:56)
[2021-12-19] MEDS: Apixaban 5 MG TAB PO (09:56)
--- NOTE | 2021-12-19 10:11 | CMDISCH_ITS ---
- If Service Date Differs Date of service: 12/19/21 Time of Service: 10:11 LACE Index Scoring Tool - Questions: Length of Stay (in days): 1 Acuity (Admit via E.D.?): Yes Comorbidities: Any Tumor, Metastatic Solid Tumor E.D. Visits: 3 - Answers: Total Score: 12 Risk of Readmission: High Risk Care Management Discharge Reason for Hospitalization: UTI, Elevated lactate, elevated troponin Discharge Plan: Sharlene will return to [facility] via [facility] [place]. She met with Julieta HOWELL of Palliative Care prior to discharge to discuss goals of care-refer to her note for further information. Patient/Family Education Needs: Review discharge instructions, discuss Ask Me Three. Services Needed at Discharge: Retirement Facility (Return )
--- NOTE | 2021-12-19 10:52 | PCNE_ITS ---
Date of service: 12/19/21 Time of Service: 10:53 History of Present Illness Narrative: Feeling tired, did not sleep much last night. She has been working with PT at [facility], but it's an awful chore. She cannot walk without help. She is very weak. She was noted to have EKG changes and elevated troponin. We discussed this and she is clear that she does not want further workup. When discussing her cancer, she reports that she told her daughter that she woul d have radiation. She states she does not want to have a lot of procedures. She expects radiation to be difficult for her to go through. She is scared to do radiation. She states she is doing it for her children, 1 daughter and 2 sons. She is clear the she needs to get stronger before she goes through radiation. She has had radiation and left lumpectomy within the last 8 years. She did well at that time but understands that she was stronger at that time. She did not have chemotherapy. Her daughter, Kelly is the one that speaks for her and helps her make decisions. She states she does not mind going to the hospital. If she was nearing the end of her life, she would want to be in her apartment. She does not think she would have help at home 24 hours per day. She would be OK with being at the rehab if she cannot be home. We discussed hospice as an option, she would be interested in hospice if she does not continue to pursue cancer directed treatment. Assessment and Plan Assessment and plan (1) NSTEMI (non-ST elevated myocardial infarction): Status: Acute (2) Falls: Status: Acute (3) General weakness: Status: Acute (4) Frontal mass of brain: Status: Acute (5) Metastatic breast cancer: Status: Acute (6) Palliative care patient: Status: Acute Assessment and plan: Sharlene is a very pleasant 86 year old female who is currently hospitalized for weakness, NSTEMI and UTI. She declined further work up for elevated troponin and EKG changes. She is currently staying at [facility] after having a craniotomy at [facility] for brain mass, the Bx showed metastatic breast cancer. She is currently weak and working with PT to get stronger for possible radiation. Sharlene reports that she is planning to do radiation for her children. She feels that it will be difficult for her to go through. We discussed that it is up to her if she wants to continue to pursue cancer directed treatment. We talked about the alternative, which would be comfort focused care with good quality of life as a goal. She has only been working with PT for about 2 weeks. She is interested in meeting with Palliative care again in a couple of weeks to see if she is in fact gaining strength. She would consider hospice if she is not getting stronger. Her first choice would be to be in her apartment at the end of her life. If she cannot be home, she would be OK with being at [facility]. She is a DNR/DNI, she has a COLST on file. Consider naming a health care agent/adding to COLST form. Follow up in 2-3 weeks at the rehab. Review of Systems Narrative: She feels weak. She reports feeling shaky. She is eating and drinking well. She denies pain. 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 mets to lumbar spine, sacrum and ribs on 09/2015 bone scan b. HER2/odalys positive c. currently receiving chemotherapy including trastuxumab through [facility] and Dr. Cr NSVT (nonsustained ventricular tachycardia) (Chronic) a. h/o NSVT 03/2015 - evaluated at [facility] and did not have any therapy modifications made Lichen sclerosus of female genitalia (Chronic) a. vulva H/O surgical procedure (Chronic) a. normal cardiac cath 2012 b. left breast biopsy and lumpectomy c. total hip replacements in 2009 and 2013 d. sentinel lymph node biopsy along with lumpectomy e. right port-a-cath placement 09/23/[address] Lockhart Medical History (Updated 12/19/21 @ 11:29 by Julieta Leonard NP) Cardiac arrhythmia asymptomatic. incidental finding. s/p eval in [facility]. no intervention required. 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 eventually metastisized. Father Diabetes Sister Breast cancer Sister Breast cancer Lung cancer Social History Smoking/Tobacco Use Status: Former Tobacco Use Smoking risk assessment performed?: Yes Alcohol Intake: never Drug use: Never Substance use type: does not use Current gender identity: female Do you feel safe at home: Yes Do you feel safe in your relationship?: Yes Exam Narrative Exam Narrative: General: very pleasant, elderly female, laying in bed with HOB elevated. She is alert and oriented, answers questions appropriately. Skin is pale. HEENT: ecchymosis and healing surgical incision to the left parietal region. EOMI, mucous membranes moist. Neck: supple. Cardiovascular: heart sounds regular, nontachycardic. Respiratory: respirations appear even and unlabored, lung sounds are clear throughout. GI: +BS, abdomen is soft, nondistended, nontender on palpation. Extremities: trace pitting edema to BLEs. moves all 4 extremities freely. Results Last Vital Signs Temp 36.7 C 12/19/21 07:16 Pulse 100 H 12/19/21 07:16 Resp 14 12/19/21 07:16 BP 133/79 12/19/21 07:16 Pulse Ox 97 12/19/21 07:16 Labs Result diagrams: 12/19/21 06:14 12/19/21 06:14 Labs: Laboratory Results - last 24 hr 12/18/21 12/18/21 12/18/21 15:40 15:40 15:40 WBC 7.73 RBC 3.10 L Hgb 9.7 L Hct 30.6 L MCV 98.7 H MCH 31.3 MCHC 31.7 L RDW 18.3 H Plt Count 171 MPV 9.9 Immature Gran % 0.8 Neutrophils % 86.4 Lymphocytes % 6.6 Monocytes % 4.9 Eosinophils % 1.2 Basophils % 0.1 Nucleated RBC % 0.3 Absolute Neutrophils 6.68 Absolute Lymphocytes 0.51 L Absolute Monocytes 0.38 Absolute Eosinophils 0.09 Absolute Basophils 0.01 PT 11.0 INR 1.1 APTT 21.5 VBG Lactate Sodium 143 Potassium 3.6 Chloride 109 H Carbon Dioxide 22.7 Anion Gap 11.3 H BUN 22 H Creatinine 1.2 H Estimated GFR/1.73 m2 42.80 Glucose 180 H Calcium 8.0 L Magnesium 2.2 Total Bilirubin 0.5 AST 21 ALT 35 Alkaline Phosphatase 70 Troponin I Total Protein 5.0 L Albumin 2.3 L TSH Urine Color Urine Clarity Urine pH Ur Specific [place] Urine Protein Urine Ketones Urine Blood Urine Nitrite Urine Bilirubin Urine Urobilinogen Ur Leukocyte Esterase Urine RBC Urine WBC Ur Epithelial Cells Urine Crystals Urine Bacteria Urine Casts Urine Mucus Urine Other Ur Culture Indicated? Urine Glucose COVID-19 Source SARS-CoV-2 (PCR) Patient ABO/Rh Antibody Screen Crossmatch 12/18/21 12/18/21 12/18/21 15:40 16:30 16:30 WBC RBC Hgb Hct MCV MCH MCHC RDW Plt Count MPV Immature Gran % Neutrophils % Lymphocytes % Monocytes % Eosinophils % Basophils % Nucleated RBC % Absolute Neutrophils Absolute Lymphocytes Absolute Monocytes Absolute Eosinophils Absolute Basophils PT INR APTT VBG Lactate 2.8 H* Sodium Potassium Chloride Carbon Dioxide Anion Gap BUN Creatinine Estimated GFR/1.73 m2 Glucose Calcium Magnesium Total Bilirubin AST ALT Alkaline Phosphatase Troponin I 166 H* Total Protein Albumin TSH 0.53 Urine Color Urine Clarity Urine pH Ur Specific [place] Urine Protein Urine Ketones Urine Blood Urine Nitrite Urine Bilirubin Urine Urobilinogen Ur Leukocyte Esterase Urine RBC Urine WBC Ur Epithelial Cells Urine Crystals Urine Bacteria Urine Casts Urine Mucus Urine Other Ur Culture Indicated? Urine Glucose COVID-19 Source SARS-CoV-2 (PCR) Patient ABO/Rh O Positive Antibody Screen NEGATIVE Crossmatch See Detail 12/18/21 12/18/21 12/18/21 18:31 20:35 22:43 WBC RBC Hgb Hct MCV MCH MCHC RDW Plt Count MPV Immature Gran % Neutrophils % Lymphocytes % Monocytes % Eosinophils % Basophils % Nucleated RBC % Absolute Neutrophils Absolute Lymphocytes Absolute Monocytes Absolute Eosinophils Absolute Basophils PT INR APTT VBG Lactate Sodium Potassium Chloride Carbon Dioxide Anion Gap BUN Creatinine Estimated GFR/1.73 m2 Glucose Calcium Magnesium Total Bilirubin AST ALT Alkaline Phosphatase Troponin I 182 H* Total Protein Albumin TSH Urine Color Yellow Urine Clarity Clear Urine pH 5.5 Ur Specific [place] 1.020 Urine Protein Negative Urine Ketones Negative Urine Blood Trace-intact H Urine Nitrite Positive H Urine Bilirubin Negative Urine Urobilinogen 0.2 Ur Leukocyte Esterase Trace H Urine RBC Negative Urine WBC 20-50 H Ur Epithelial Cells Negative Urine Crystals Negative Urine Bacteria Many Urine Casts Negative Urine Mucus Negative Urine Other Negative Ur Culture Indicated? Yes Urine Glucose Negative COVID-19 Source Nasal/Nares SARS-CoV-2 (PCR) Negative Patient ABO/Rh Antibody Screen Crossmatch 12/18/21 12/19/21 12/19/21 23:17 03:50 06:14 WBC RBC Hgb Hct MCV MCH MCHC RDW Plt Count MPV Immature Gran % Neutrophils % Lymphocytes % Monocytes % Eosinophils % Basophils % Nucleated RBC % Absolute Neutrophils Absolute Lymphocytes Absolute Monocytes Absolute Eosinophils Absolute Basophils PT INR APTT VBG Lactate 1.1 Sodium 147 H Potassium 2.9 L Chloride 115 H Carbon Dioxide 22.6 Anion Gap 9.4 BUN 17 Creatinine 0.8 Estimated GFR/1.73 m2 >= 60.00 Glucose 92 D Calcium 7.4 L Magnesium Total Bilirubin AST ALT Alkaline Phosphatase Troponin I 172 H* 168 H* Total Protein Albumin TSH Urine Color Urine Clarity Urine pH Ur Specific [place] Urine Protein Urine Ketones Urine Blood Urine Nitrite Urine Bilirubin Urine Urobilinogen Ur Leukocyte Esterase Urine RBC Urine WBC Ur Epithelial Cells Urine Crystals Urine Bacteria Urine Casts Urine Mucus Urine Other Ur Culture Indicated? Urine Glucose COVID-19 Source SARS-CoV-2 (PCR) Patient ABO/Rh Antibody Screen Crossmatch 12/19/21 06:14 WBC 4.94 D RBC 2.66 L Hgb 8.3 L Hct 26.6 L MCV 100.0 H MCH 31.2 MCHC 31.2 L RDW 18.1 H Plt Count 130 MPV 9.8 Immature Gran % 0.8 Neutrophils % 76.3 Lymphocytes % 15.2 Monocytes % 5.7 Eosinophils % 1.8 Basophils % 0.2 Nucleated RBC % 0.0 Absolute Neutrophils 3.77 Absolute Lymphocytes 0.75 L Absolute Monocytes 0.28 Absolute Eosinophils 0.09 Absolute Basophils 0.01 PT INR APTT VBG Lactate Sodium Potassium Chloride Carbon Dioxide Anion Gap BUN Creatinine Estimated GFR/1.73 m2 Glucose Calcium Magnesium Total Bilirubin AST ALT Alkaline Phosphatase Troponin I Total Protein Albumin TSH Urine Color Urine Clarity Urine pH Ur Specific [place] Urine Protein Urine Ketones Urine Blood Urine Nitrite Urine Bilirubin Urine Urobilinogen Ur Leukocyte Esterase Urine RBC Urine WBC Ur Epithelial Cells Urine Crystals Urine Bacteria Urine Casts Urine Mucus Urine Other Ur Culture Indicated? Urine Glucose COVID-19 Source SARS-CoV-2 (PCR) Patient ABO/Rh Antibody Screen Crossmatch
[2021-12-19 11:04] VITALS: BP 122/77; PULSE 75; RESP 15; TEMP 36.7; O2SAT 98
--- NOTE | 2021-12-19 11:35 | DSE_ITS ---
Date of service: 12/19/21 Time of Service: 11:35 DS: Diagnosis Discharge Diagnosis (1) General weakness: Status: Acute (2) Urinary tract infection: Status: Acute (3) NSTEMI (non-ST elevated myocardial infarction): Status: Acute Discharge Plan Disposition Patient Disposition: SNF (LEVEL 1) TH & REHAB Condition: Stable Discharge Details Reason For Visit: UTI, Elevated Lactate, Elevated Troponin Admit Date/Time: 12/18/21 23:01 Admit Provider: Ravindra Lerma Attending Provider: Ravindra Lerma [facility] Course: This is an 86 year old female with history of metastatic breast cancer s/p post parietal craniotomy for tumor resection at [facility] 2 weeks ago, who is at [facility] and rehab under half-way rehab who was transported to the ED for evaluation of a sudden onset of weakness hypotension and diplopia. Her work up in the ED shows elevated troponin, she denied any chest pain or shortness of breath, serial troponins remained flat. She was found to have an asymptomatic UTI, cultures still pending, she received ceftriaxone 2 gm in ED and 1 gm today prior to discharge. She was given IV fluids and feels back to her baseline. She has been hemodynamically stable and is ready to return to [facility] and rehab. [facility] is non ambulatory and will be transported by ground EMS. palliative care consult prior to discharge was completed. they will follow outpatient. She is clear about no further cardiac workup at this point. discharge discussed with Dr Berger. Home Meds and New Rx's Prescriptions: Continued losartan 50 mg tablet 50 mg PO DAILY 0RF omeprazole 20 mg tablet,delayed release (DR/EC) 20 mg PO DAILY 0RF multivitamin [Multiple Vitamins] 1 TAB tablet 1 tab PO DAILY 0RF Xgeva 120 mg/1.7 mL (70 mg/mL) solution 120 mg Sub-Q .COMPLEX 0RF Rx Instructions: 120 mg subcut; levothyroxine 112 mcg tablet 112 mcg PO DAILY 0RF amantadine HCl 100 mg Tablet 100 mg PO BID 0RF levetiracetam 500 mg Tablet 500 mg PO BID 0RF dexamethasone 4 mg tablet 1 mg PO DAILY 0RF Label Comments: TAKE TWO TABLETS BY MOUTH TWICE A DAY WITH MEALS zinc oxide Paste 1 applic TOPICAL DAILY 0RF apixaban 5 mg Tablet 5 mg PO BID 0RF levofloxacin 750 mg tablet 750 mg PO DAILY Qty: 7 0RF Held pertuzumab 420 mg/14 mL (30 mg/mL) solution 420 mg IV Q3W 0RF Hold Instructions: per outpatient team Herceptin 440 mg recon soln 150 mg IV 0RF Hold Instructions: per outpatient team Label Comments: Update: 07/11/21- Patient seen at [facility] Cardiology, Called Patient pharmacy to get up-to-date medication list which provided dose of medication. Unsure of exact dose that patient recieves at the [facility]. Was due today for another does but did not since has cellulitis of LT breast. Discharge Instructions Instructions: Urinary Tract Infection in Women (DC), Weakness (DC) Stand Alone Forms: Nursing Discharge Form Activity:: Activity as Tolerated Equipment/Supplies:: No Equipment Needed Diet:: As Tolerated Discharge Orders Discharge Orders: Discharge Order (Routine); Ordered 12/19/21 Ordered By: Jenny Vo Discharge Data Discharge Date/Time-TO BE ENTERED AT DEPARTURE: 12/19/21 13:08 DS: Summary Time Spent with Patient providing and/or coordinating discharge services: Less than 30 minutes Status at Discharge Functional status at discharge: bed bound Overall status at discharge: patient is progressing back to baseline Mental Status: mental status grossly normal Speech and Movement: speech and movement normal Mood: congruent mood Affect: normal affect Exam Const General: cooperative, comfortable and no acute distress Nutritional Appearance: overweight Eyes General: appearance normal, both eyes and all related structures Neck Neck: normal visual inspection Resp Auscultation: clear to auscultation bilaterally Cardio Rate: regular rate Rhythm: regular rhythm GI Palpation: soft and nontender Neuro General: patient alert, patient awake and patient oriented x3 Cognition: normal cognition Extrem General: normal to inspection and no edema Psych Mental Status: mental status grossly normal Speech and Movement: speech and movement normal Mood: congruent mood Affect: normal affect DS: Data Vitals/I&O Vitals and I&O: Vital Signs Temperature 36.7 C 12/19/21 11:04 Temperature Source Tympanic 12/19/21 11:04 Pulse 75 12/19/21 11:04 Pulse Rhythm Regular 12/19/21 08:00 Pulse 100 H 12/18/21 23:40 Respiratory Rate 15 12/19/21 11:04 Respiratory Effort Non-Labored 12/19/21 08:00 Respiratory Depth Normal 12/19/21 08:00 Respiratory Pattern Normal 12/19/21 08:00 Blood Pressure 122/77 12/19/21 11:04 Blood Pressure Mean 45 12/18/21 23:01 Blood Pressure Position Supine 12/18/21 15:18 Pulse Oximetry 98 12/19/21 11:04 Oxygen Delivery Method Room Air 12/19/21 11:04 Oxygen Flow Rate 0 12/19/21 11:04 Pain Level 0 12/19/21 11:04 Comment 12/19/21 00:15 Intake & Output 12/18/21 12/18/21 12/19/21 11:59 23:59 11:59 Intake Total 1050.000 / 1050.000 480 / 480 Output Total 400 / 400 Balance 650.000 / 650.000 480 / 480 Weight 86.319 kg 86.32 kg Intake: IV 1050.000 / 1050.000 Oral 480 / 480 Output: Urine 400 / 400 Other: Urine Color Yellow Pale Yellow Urine Appearance Clear Clear Urine Odor Strong Comment Patient had minimal amount of urine in the bedside commode. When patient got back into bed, patient was incontinent. Voiding Methods Bedpan Data Completed and Pending Labs on day of discharge: Labs from last 24 hours 12/19/21 12/19/21 12/19/21 06:14 06:14 03:50 WBC 4.94 D RBC 2.66 L Hgb 8.3 L Hct 26.6 L MCV 100.0 H MCH 31.2 MCHC 31.2 L RDW 18.1 H Plt Count 130 MPV 9.8 Immature Gran % 0.8 Neutrophils % 76.3 Lymphocytes % 15.2 Monocytes % 5.7 Eosinophils % 1.8 Basophils % 0.2 Nucleated RBC % 0.0 Absolute Neutrophils 3.77 Absolute Lymphocytes 0.75 L Absolute Monocytes 0.28 Absolute Eosinophils 0.09 Absolute Basophils 0.01 PT INR APTT VBG Lactate Sodium 147 H Potassium 2.9 L Chloride 115 H Carbon Dioxide 22.6 Anion Gap 9.4 BUN 17 Creatinine 0.8 Estimated GFR/1.73 m2 >= 60.00 Glucose 92 D Calcium 7.4 L Magnesium Total Bilirubin AST ALT Alkaline Phosphatase Troponin I 168 H* 172 H* Total Protein Albumin TSH Urine Color Urine Clarity Urine pH Ur Specific [place] Urine Protein Urine Ketones Urine Blood Urine Nitrite Urine Bilirubin Urine Urobilinogen Ur Leukocyte Esterase Urine RBC Urine WBC Ur Epithelial Cells Urine Crystals Urine Bacteria Urine Casts Urine Mucus Urine Other Ur Culture Indicated? Urine Glucose COVID-19 Source SARS-CoV-2 (PCR) Patient ABO/Rh Antibody Screen Crossmatch 12/18/21 12/18/21 12/18/21 23:17 22:43 20:35 WBC RBC Hgb Hct MCV MCH MCHC RDW Plt Count MPV Immature Gran % Neutrophils % Lymphocytes % Monocytes % Eosinophils % Basophils % Nucleated RBC % Absolute Neutrophils Absolute Lymphocytes Absolute Monocytes Absolute Eosinophils Absolute Basophils PT INR APTT VBG Lactate 1.1 Sodium Potassium Chloride Carbon Dioxide Anion Gap BUN Creatinine Estimated GFR/1.73 m2 Glucose Calcium Magnesium Total Bilirubin AST ALT Alkaline Phosphatase Troponin I 182 H* Total Protein Albumin TSH Urine Color Urine Clarity Urine pH Ur Specific [place] Urine Protein Urine Ketones Urine Blood Urine Nitrite Urine Bilirubin Urine Urobilinogen Ur Leukocyte Esterase Urine RBC Urine WBC Ur Epithelial Cells Urine Crystals Urine Bacteria Urine Casts Urine Mucus Urine Other Ur Culture Indicated? Urine Glucose COVID-19 Source Nasal/Nares SARS-CoV-2 (PCR) Negative Patient ABO/Rh Antibody Screen Crossmatch 12/18/21 12/18/21 12/18/21 18:31 16:30 16:30 WBC RBC Hgb Hct MCV MCH MCHC RDW Plt Count MPV Immature Gran % Neutrophils % Lymphocytes % Monocytes % Eosinophils % Basophils % Nucleated RBC % Absolute Neutrophils Absolute Lymphocytes Absolute Monocytes Absolute Eosinophils Absolute Basophils PT INR APTT VBG Lactate 2.8 H* Sodium Potassium Chloride Carbon Dioxide Anion Gap BUN Creatinine Estimated GFR/1.73 m2 Glucose Calcium Magnesium Total Bilirubin AST ALT Alkaline Phosphatase Troponin I Total Protein Albumin TSH Urine Color Yellow Urine Clarity Clear Urine pH 5.5 Ur Specific [place] 1.020 Urine Protein Negative Urine Ketones Negative Urine Blood Trace-intact H Urine Nitrite Positive H Urine Bilirubin Negative Urine Urobilinogen 0.2 Ur Leukocyte Esterase Trace H Urine RBC Negative Urine WBC 20-50 H Ur Epithelial Cells Negative Urine Crystals Negative Urine Bacteria Many Urine Casts Negative Urine Mucus Negative Urine Other Negative Ur Culture Indicated? Yes Urine Glucose Negative COVID-19 Source SARS-CoV-2 (PCR) Patient ABO/Rh O Positive Antibody Screen NEGATIVE Crossmatch See Detail 12/18/21 12/18/21 12/18/21 15:40 15:40 15:40 WBC 7.73 RBC 3.10 L Hgb 9.7 L Hct 30.6 L MCV 98.7 H MCH 31.3 MCHC 31.7 L RDW 18.3 H Plt Count 171 MPV 9.9 Immature Gran % 0.8 Neutrophils % 86.4 Lymphocytes % 6.6 Monocytes % 4.9 Eosinophils % 1.2 Basophils % 0.1 Nucleated RBC % 0.3 Absolute Neutrophils 6.68 Absolute Lymphocytes 0.51 L Absolute Monocytes 0.38 Absolute Eosinophils 0.09 Absolute Basophils 0.01 PT 11.0 INR 1.1 APTT 21.5 VBG Lactate Sodium Potassium Chloride Carbon Dioxide Anion Gap BUN Creatinine Estimated GFR/1.73 m2 Glucose Calcium Magnesium Total Bilirubin AST ALT Alkaline Phosphatase Troponin I 166 H* Total Protein Albumin TSH 0.53 Urine Color Urine Clarity Urine pH Ur Specific [place] Urine Protein Urine Ketones Urine Blood Urine Nitrite Urine Bilirubin Urine Urobilinogen Ur Leukocyte Esterase Urine RBC Urine WBC Ur Epithelial Cells Urine Crystals Urine Bacteria Urine Casts Urine Mucus Urine Other Ur Culture Indicated? Urine Glucose COVID-19 Source SARS-CoV-2 (PCR) Patient ABO/Rh Antibody Screen Crossmatch 12/18/21 15:40 WBC RBC Hgb Hct MCV MCH MCHC RDW Plt Count MPV Immature Gran % Neutrophils % Lymphocytes % Monocytes % Eosinophils % Basophils % Nucleated RBC % Absolute Neutrophils Absolute Lymphocytes Absolute Monocytes Absolute Eosinophils Absolute Basophils PT INR APTT VBG Lactate Sodium 143 Potassium 3.6 Chloride 109 H Carbon Dioxide 22.7 Anion Gap 11.3 H BUN 22 H Creatinine 1.2 H Estimated GFR/1.73 m2 42.80 Glucose 180 H Calcium 8.0 L Magnesium 2.2 Total Bilirubin 0.5 AST 21 ALT 35 Alkaline Phosphatase 70 Troponin I Total Protein 5.0 L Albumin 2.3 L TSH Urine Color Urine Clarity Urine pH Ur Specific [place] Urine Protein Urine Ketones Urine Blood Urine Nitrite Urine Bilirubin Urine Urobilinogen Ur Leukocyte Esterase Urine RBC Urine WBC Ur Epithelial Cells Urine Crystals Urine Bacteria Urine Casts Urine Mucus Urine Other Ur Culture Indicated? Urine Glucose COVID-19 Source SARS-CoV-2 (PCR) Patient ABO/Rh Antibody Screen Crossmatch 12/18/21 20:53 Blood Blood Culture - Pending 12/18/21 20:35 Blood Blood Culture - Pending 12/18/21 18:31 Urine - Reflex from Ua Urine Culture - Pending Preliminary micro results at discharge 12/18/21 20:53 Blood Culture - Pending Blood 12/18/21 20:35 Blood Culture - Pending Blood 12/18/21 18:31 Urine Culture - Pending Urine - Reflex from [facility] All Active Problems Palliative care patient (Acute) Metastatic breast cancer (Acute) NSTEMI (non-ST elevated myocardial infarction) (Acute) Falls (Acute) General weakness (Acute) Cough (Acute) Urinary tract infection (Acute) Frontal mass of brain (Acute) Cardiac arrhythmia (Acute 06/05/14) 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 mets to lumbar spine, sacrum and ribs on 09/2015 bone scan b. HER2/odalys positive c. currently receiving chemotherapy including trastuxumab through [facility] and Dr. Cr NSVT (nonsustained ventricular tachycardia) (Chronic) a. h/o NSVT 03/2015 - evaluated at [facility] and did not have any therapy modifications made Lichen sclerosus of female genitalia (Chronic) a. vulva H/O surgical procedure (Chronic) a. normal cardiac cath 2012 b. left breast biopsy and lumpectomy c. total hip replacements in 2009 and 2013 d. sentinel lymph node biopsy along with lumpectomy e. right port-a-cath placement 09/23/[address] Lockhart Medical History (Updated 12/19/21 @ 11:29 by Julieta Leonard NP) Cardiac arrhythmia asymptomatic. incidental finding. s/p eval in [facility]. no intervention required. 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 eventually metastisized. Father Diabetes Sister Breast cancer Sister Breast cancer Lung cancer Social History Smoking/Tobacco Use Status: Former Tobacco Use Smoking risk assessment performed?: Yes Alcohol Intake: never Drug use: Never Substance use type: does not use Current gender identity: female Do you feel safe at home: Yes Do you feel safe in your relationship?: Yes
[2021-12-19] MEDS: cefTRIAXone 1 GM/50 ML BAG IVPB (11:54)
[2021-12-19] MEDS: Heparin 500 UNITS/5 ML SYRINGE IVP (12:51)
--- NOTE | 2021-12-19 15:53 | CHAPLAIN ---
Sharlene was resting in bed when I visited. She was expecting to be discharged and go back to [facility] after lunch. Bryant met with Julieta from Palliative Care talk about her goals of care. She is being treated for breast cancer, and may have radiation. Right now, Sharlene said, she doesn't feel strong enough for radiation. She said she is shaky and weak and hopes that PT will help her gain some strength. In her conversation with Julieta, she mentioned that she agreed to radiation for her children and she's not sure she will up to it. I gave Sharlene a prayer shawl.
== END 2021-12-19 13:08 | disposition skilled nursing facility (03) | DRG 281 ==
LOC: ER 23:36 → MS 23:52
PROVIDERS: Registered Nurse Emergency; Admitting Provider Family Medicine; Emergency Provider Physician Assistant; PCP Family Medicine; Visit Provider Family Medicine
DX: I21.4 Non-ST elevation (NSTEMI) myocardial infarction (principal); N39.0 Urinary tract infection, site not specified; C79.31 Secondary malignant neoplasm of brain; R53.1 Weakness; Z66 Do not resuscitate; Z91.81 History of falling; I49.3 Ventricular premature depolarization; I10 Essential (primary) hypertension; E03.9 Hypothyroidism, unspecified; K21.9 Gastro-esophageal reflux disease without esophagitis; C50.911 Malignant neoplasm of unspecified site of right female breast; N90.4 Leukoplakia of vulva; I95.9 Hypotension, unspecified; H53.2 Diplopia
CPT/HCPCS: 36415; 51701; 74177; 80048; 80053; 86850; 86900; 86901; 86920; 87040; 87077; 87635; 93005; 96361; 96365; 99291; 70450; 71260; 81003; 81015; 83605; 83735; 84443; 84484; 85025; 85610; 85730; 87086; 87186; 93010; 99223; 99238; J0696; J3490; J8540

== ENCOUNTER 2021-12-22 14:18 | Emergency (ER) | payer MEDICARE, SELFPAY ==
[2021-12-22] VITALS (7 sets, daily range): BP systolic 85–111; BP diastolic 57–73; PULSE 90–104; RESP 16–20; TEMP 36.2–36.9; O2SAT 97–99
--- NOTE | 2021-12-22 14:30 | RT.EKG_ITS ---
APPROVED REPORT Exam: Resting ECG Reason for Exam: fast heart rate Patient Location: E HR:94 bpm ECG Measurements Heart Rate 94 AXIS AZ 198 P 34 QRSd 106 QRS -59 QT 345 T 96 QTc 431 Conclusion Sinus rhythm...normal P axis, V-rate 60- 99 Left anterior fascicular block...axis(240,-40), init forces inf sinus rhythm, left axis, LAFB, non ischemic
--- NOTE | 2021-12-22 14:51 | W.ED.GENAD ---
Discharge Plan Disposition Patient Disposition: SNF (LEVEL 1) [facility] Condition: Stable Discharge Details Clinical Impression: Acute UTI, Positive blood culture Primary Care Provider: Rajwinder Harris ED Provider: Jarvis Schultz Home Meds and New Rx's Prescriptions: Continued pertuzumab 420 mg/14 mL (30 mg/mL) solution 420 mg IV Q3W 0RF Hold Instructions: per outpatient team losartan 50 mg tablet 50 mg PO DAILY 0RF omeprazole 20 mg tablet,delayed release (DR/EC) 20 mg PO DAILY 0RF Herceptin 440 mg recon soln 150 mg IV 0RF Hold Instructions: per outpatient team Label Comments: Update: 07/11/21- Patient seen at [facility], Called Patient pharmacy to get up-to-date medication list which provided dose of medication. Unsure of exact dose that patient recieves at the [facility]. Was due today for another does but did not since has cellulitis of LT breast. multivitamin [Multiple Vitamins] 1 TAB tablet 1 tab PO DAILY 0RF Xgeva 120 mg/1.7 mL (70 mg/mL) solution 120 mg Sub-Q .COMPLEX 0RF Rx Instructions: 120 mg subcut; levothyroxine 112 mcg tablet 112 mcg PO DAILY 0RF amantadine HCl 100 mg Tablet 100 mg PO BID 0RF levetiracetam 500 mg Tablet 500 mg PO BID 0RF dexamethasone 4 mg tablet 1 mg PO DAILY 0RF Label Comments: TAKE TWO TABLETS BY MOUTH TWICE A DAY WITH MEALS zinc oxide Paste 1 applic TOPICAL DAILY 0RF apixaban 5 mg Tablet 5 mg PO BID 0RF Discharge Instructions Instructions: Urinary Tract Infection in Women (ED) Additional Instructions: Plan is to transfer patient back to her health and rehab facility, they will give IM Rocephin tomorrow, and continue to follow the blood cultures. Patient may need additional doses of IM medication and or transition to oral medication. Plenty of fluids to avoid dehydration. Please watch for new or worsening symptoms and return to the ER for any concerns. Discharge Data Discharge Date/Time-TO BE ENTERED AT DEPARTURE: 12/22/21 18:38 Medical Decision Making Patient is a pleasant 86-year-old female presenting today with chief complaint of positive blood cultures. Patient was admitted for UTI and d/c'ed on 12/19/21. At that time she was treated with IV Ceftriaxone. Patient had positive blood cultures and was contacted to return for continued care with concern for bacteremia. Patient reports that she is feeling quite well. Denies any fevers or chills. Is no longer having any dysuria, increased frequency or urgency. Patient did recently have a craniotomy, even denies headache. States that her only discomfort at this time is the stretcher when she is laying in but otherwise has been feeling that she has been steadily improving while at the rehab facility. Shortly after the patient arrived, I was contacted by Jenny Vo NP as well as Dr. Palacio. They were aware of the patient and reviewed the chart when the patient possible positive blood culture was identified. They advised that the patient's urine has been pansensitive and has a gram-positive bacteria that were initially drawn out, prompting patient to return today, a likely contaminant. Advised of the patient not having any continued symptoms that the patient should be able to be sent back that we could redraw to ensure no contamination. They advised the patient does not need any further antibiotics, treatment or admission unless the patient is clinically change or worsening. On exam, patient appears nontoxic. Vital signs are stable. She has no pain with CVA percussion, no abdominal discomfort. Lungs are clear, normal cardiac exam. Patient would like to be able to be discharged back to the rehab facility if possible. Out of abundance of caution, we will repeat the blood cultures. Definitive identification of organism that was recently grown pending. You can have the patient return as needed. The patient was advised that if she does have any fever/chills, recurrence of her symptoms, she should be reevaluated. However, patient is currently residing in a rehab facility and feels safe in that location. Plan to repeat blood cultures and discharged back to health and rehab. Patient after evaluating the patient, repeat vital signs were obtained and patient was noted to be more hypertensive. On chart review, patient does appear to have been hypertensive historically. Per health and rehab, patient was hypotensive over the weekend. I do feel with this finding, despite the patient being asymptomatic, it would be appropriate to obtain baseline blood work for comparison. We will hydrate the patient. Labs reviewed, no leukocytosis. Patient baseline anemia. Lactate slightly elevated at 2.1. Procalcitonin WNL. Urine concerning for moderate baceria, negative nitrite, negative leukocyte esterase. With her BP, lactate and bacteria in the UA, will give dose of Ceftriaxone. As procalcitonin and patient appear well, plan to d/c to H[facility]R. Will likely recommend repeat dosing of ceftriaxone tomorrow. At the end of my shift, care transitioned to Jono Schultz PA-C. I assumed care of this 86-year-old female from my colleague LAW Barboza, please see her initial HPI and examination. At time of signout patient is receiving IV fluids and IV ceftriaxone. Repeat blood pressure is 107/73, pulse in the 90s. She has no acute concerns or complaints and reports feeling well. She appears well, nontoxic. Plan is to return back to health and rehab once ceftriaxone and fluids have completed. I have reached out to the provider site damage prevention technician at the health and rehab facility discussed this plan to be sure they have no additional questions or concerns and will be able to give ceftriaxone tomorrow. I was able to speak with Fanny Cristina CALCULATION CLERK, made her aware of the findings here in the ER, recommendations of the hospitalist, and that we did initiate IV Rocephin. Plan is to send back to her facility, and give a dose of IM Rocephin tomorrow, and continue to follow the blood cultures. Patient may need additional IM Rocephin and or switch to p.o. antibiotics if indicated. She is comfortable with this plan and has no additional questions or concerns. Standard discharge and return precautions were provided. This documentation was generated using [facility] dictation system, please disregard any oddities of phrase or misspellings. Medical Records Medical records reviewed: Yes I reviewed the patient's medical records. HPI General Date/Time Provider Initiated Documentation: 12/22/21 14:50. Limitations to Documentation: no limitations. Information obtained by: patient, RN notes reviewed and old records reviewed. History of Present Illness 86 year old F presents to the emergency department with the chief complaint of called to come in for positive blood culture, described as mild (patient denies any symptoms currently), Patient started experiencing this day(s) (recently treated in house for UTI) and it has been now resolved (denies any continued UTI sxs). improves with No relieving factors improve symptom(s), No exacerbating factors reported . Patient notes no other symptoms.. Patient did receive the following treatments prior to arrival, other (abx) Related Data Home Medications Medication Instructions Recorded Confirmed multivitamin (Multiple Vitamins) 1 tab PO DAILY tab 04/04/17 12/18/21 pertuzumab 420 mg/14 mL (30 mg/mL) 420 mg IV Q3W 11/10/18 07/11/21 intravenous solution denosumab 120 mg/1.7 mL (70 mg/mL) 120 mg SUB-Q .COMPLEX 01/08/20 07/11/21 subcutaneous solution (Xgeva) omeprazole 20 mg tablet,delayed 20 mg PO DAILY 01/08/20 12/18/21 release levothyroxine 112 mcg tablet 112 mcg PO DAILY tab 07/11/21 07/11/21 losartan 50 mg tablet 50 mg PO DAILY 07/11/21 12/18/21 trastuzumab 440 mg intravenous 150 mg IV 07/11/21 07/11/21 solution (Herceptin) amantadine HCl 100 mg tablet 100 mg PO BID 12/18/21 12/18/21 apixaban 5 mg tablet 5 mg PO BID 12/18/21 12/18/21 dexamethasone 4 mg tablet 1 mg PO DAILY 12/18/21 levetiracetam 500 mg tablet 500 mg PO BID 12/18/21 12/18/21 zinc oxide 1 applic TOPICAL DAILY 12/18/21 12/18/21 Previous Rx's Medication Instructions Recorded multivitamin (Multiple Vitamins) 1 tab PO DAILY tab 04/04/17 Allergies Allergy/AdvReac Type Severity Reaction Status Date / Time No Known Drug Allergies Allergy Verified 12/18/21 22:57 milk AdvReac Unknown diarrhea Verified 12/18/21 22:57 General Stated Complaint: GenMedical MONY: 3 Review of Systems Constitutional Constitutional: Reports as per HPI, Denies chills, Denies fever(s) and Denies poor appetite Cardiovascular Cardiovascular: Denies chest pain Respiratory Respiratory: Denies cough Gastrointestinal Gastrointestinal: Denies abdominal pain, Denies change in bowel habits, Denies nausea and Denies vomiting Genitourinary Genitourinary: Reports as per HPI Musculoskeletal Musculoskeletal: Reports as per HPI and Denies back pain Integumentary/Breasts Skin/Breast: Reports as per HPI and Denies rash PFSH All Active Problems Acute UTI (Acute) Positive blood culture (Acute) Palliative care patient (Acute) Metastatic breast cancer (Acute) NSTEMI (non-ST elevated myocardial infarction) (Acute) Falls (Acute) General weakness (Acute) Cough (Acute) Urinary tract infection (Acute) Frontal mass of brain (Acute) Cardiac arrhythmia (Acute 06/05/14) 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 mets to lumbar spine, sacrum and ribs on 09/2015 bone scan b. HER2/odalys positive c. currently receiving chemotherapy including trast[place] [facility] [place]. Cr NSVT (nonsustained ventricular tachycardia) (Chronic) a. h/o NSVT 03/2015 - evaluated at [facility] and did not have any therapy modifications made Lichen sclerosus of female genitalia (Chronic) a. vulva H/O surgical procedure (Chronic) a. normal cardiac cath 2012 b. left breast biopsy and lumpectomy c. total hip replacements in 2009 and 2013 d. sentinel lymph node biopsy along with lumpectomy e. right port-a-cath placement 09/23/[address] Lockhart Medical History (Updated 12/22/21 @ 18:03 by LAW May) Cardiac arrhythmia asymptomatic. incidental finding. s/p eval in [facility]. no intervention required. 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 eventually metastisized. Father Diabetes Sister Breast cancer Sister Breast cancer Lung cancer Social History Smoking/Tobacco Use Status: Former Tobacco Use Smoking risk assessment performed?: Yes Alcohol Intake: never Drug use: Never Substance use type: does not use Current gender identity: female Do you feel safe at home: Yes Do you feel safe in your relationship?: Yes Exam Const General: cooperative, healthy appearing, comfortable, no acute distress, well developed and well groomed Nutritional Appearance: average body habitus and well nourished Orientation: alert and awake Resp Effort & Inspection: normal respiratory effort and no respiratory distress Auscultation: clear to auscultation bilaterally, no rales, no rhonchi and no wheezes Cardio Rate: regular rate Rhythm: regular rhythm Heart Sounds: S1 normal and S2 normal GI Inspection: normal to inspection Palpation: soft, no hepatosplenomegaly, not firm, no guarding, not rigid and nontender Back/Spine/Pelvis Back: no CVA tenderness Skin General skin exam: no rashes or lesions noted Trauma: no lacerations or abrasions Neuro General: patient alert and patient awake Cognition: normal cognition Speech: speech normal Psych Appearance: grossly normal and well kempt Mental Status: mental status grossly normal Speech and Movement: speech and movement normal Course Vital Signs Vital signs: Vital Signs Temperature 36.2 C L 12/22/21 14:24 Pulse 90 12/22/21 14:24 Respiratory Rate 20 12/22/21 14:24 Blood Pressure 109/58 L 12/22/21 14:24 Pulse Oximetry 98 12/22/21 14:24 Temperature 36.2 C L 12/22/21 14:24 Temperature Source Skin 12/22/21 14:24 Pulse 90 12/22/21 14:24 Respiratory Rate 20 12/22/21 14:24 Respiratory Effort Non-Labored 12/22/21 14:39 Blood Pressure 109/58 L 12/22/21 14:24 Blood Pressure Position Supine 12/22/21 14:24 Pulse Oximetry 98 12/22/21 14:24 Oxygen Delivery Method Room Air 12/22/21 14:24 Oxygen Flow Rate 0 12/22/21 14:24 Pain Level 0 12/22/21 14:24 Sign Out Sign Out Data: Sign Out Comment: Care transitioned to Jarvis Schlutz PA-C. Patient ordered for Ceftriaxone with concern for possible UTI. Positive blood cultures, thought to be contaminant by inpatient team. As procalcitonin WNL, plan to d/c back to [facility]. Would recommend repeat dosing tomorrow and close f/u until C&S completed on blood cultures. Last updated by Adilia Barboza PA at 12/22/21 16:48
[2021-12-22 15:55] LABS: Lactate 2.1 mmol/L (0.6-1.4)
[2021-12-22] MEDS: Lactated Ringers 1,000 ML 500 ML IV (16:01)
[2021-12-22 16:02] LABS: Abs Immature Grans 0.04 10^3/uL (0.0-0.06); Absolute Basophil Count 0.01 10^3/uL (0.0-0.2); Absolute Eosinophil Count 0.15 10^3/uL (0.0-0.7); Absolute Lymphocyte Count 0.79 10^3/uL (1.2-3.4); Absolute Monocyte Count 0.32 10^3/uL (0.1-0.8); Absolute Neutrophil Count 3.75 10^3/uL (1.2-6.7); Basophils % 0.2; HCT 30.3 % (36.0-46.0); HGB 9.4 g/dL (11.2-15.7); Immature Grans % 0.8; Lymphocytes % 15.6; MCH 31.2 pg (27.0-33.0); MCV 100.7 fL (80-95); MPV 9.8 fL (8.0-11.0); Monocytes % 6.3; Neutrophils % 74.1; Platelet Count 200 10^3/uL (130-400); RBC 3.01 10^6/uL (3.93-5.22); RDW 18.8 % (11.7-14.6); RDW-SD 68.3 fL; WBC 5.06 10^3/uL (4.4-10.8)
[2021-12-22 16:12] LABS: ALT 31 U/L (14-59); AST 22 U/L (15-37); Albumin 2.1 g/dL (3.4-5.0); Alkaline Phosphatase 69 U/L (46-116); Anion Gap 8.5 mmol/L (3-11); BUN 18 mg/dL (7-18); Bilirubin, Total 0.4 mg/dL (0.2-1.0); CO2 22.5 mmol/L (21.0-32.0); CREATININE 0.7 mg/dL (0.55-1.02); Calcium 8.1 mg/dL (8.5-10.1); Chloride 114 mmol/L (98-107); Glucose 166 mg/dL (74-106); Potassium 3.9 mmol/L (3.5-5.1); Sodium 145 mmol/L (136-145)
[2021-12-22 16:20] LABS: Bilirubin Negative (Negative); Blood Large (Negative); Clarity Sl Cloudy (Clear); Glucose Negative (Negative); Ketones Negative (Negative); Leukocyte Esterase Negative (Negative); Nitrite Negative (Negative); Specific Gravity >= 1.030 (1.005-1.025); Urobilinogen 0.2 EU/dL (Up TO 0.2); pH 5.5 (5-8)
[2021-12-22 16:26] LABS: Procalcitonin < 0.1 ng/mL
[2021-12-22 16:31] LABS: Bacteria Moderate HPF (Negative); C & S Indicated? Yes; Casts Negative LPF (Negative); Crystals Negative HPF (Negative); Epithelial Cells Rare HPF (Negative); Mucus Moderate (Negative); RBC >50 HPF (0-2)
[2021-12-22] MEDS: cefTRIAXone 1 GM/50 ML BAG IVPB (17:12)
[2021-12-22] MEDS: Heparin 500 UNITS/5 ML SYRINGE (18:18)
== END 2021-12-22 18:38 | disposition skilled nursing facility (03) ==
PROVIDERS: Physician Assistant; Emergency Provider Physician Assistant; PCP Family Medicine
DX: N39.0 Urinary tract infection, site not specified (principal); B96.89 Other specified bacterial agents as the cause of diseases classified elsewhere; R78.81 Bacteremia; R00.0 Tachycardia, unspecified
CPT/HCPCS: 36410; 80053; 84145; 87040; 93005; 96361; 96365; 99284; 81003; 81015; 83605; 85025; 87086; 93010; J0696

== ENCOUNTER 2022-01-21 14:15 | Outpatient (REF) | payer MEDICARE, SELFPAY ==
[2022-01-21 14:37] LABS: Abs Immature Grans 0.03 10^3/uL (0.0-0.06); Absolute Basophil Count 0.05 10^3/uL (0.0-0.2); Absolute Eosinophil Count 0.25 10^3/uL (0.0-0.7); Absolute Lymphocyte Count 0.98 10^3/uL (1.2-3.4); Absolute Monocyte Count 0.46 10^3/uL (0.1-0.8); Absolute Neutrophil Count 5.57 10^3/uL (1.2-6.7); Basophils % 0.7; Eosinophils % 3.4; HCT 32.9 % (36.0-46.0); HGB 10.1 g/dL (11.2-15.7); Immature Grans % 0.4; Lymphocytes % 13.4; MCH 29.3 pg (27.0-33.0); MCHC 30.7 % (32.0-36.0); MCV 95 fL (80-95); MPV 10.5 fL (8.0-11.0); Monocytes % 6.3; Neutrophils % 75.8; Platelet Count 299 10^3/uL (130-400); RBC 3.45 10^6/uL (3.93-5.22); RDW 15.9 % (11.7-14.6); RDW-SD 56.1 fL; WBC 7.34 10^3/uL (4.4-10.8)
[2022-01-21 14:46] LABS: ALT 16 U/L (14-59); AST 12 U/L (15-37); Albumin 2.1 g/dL (3.4-5.0); Alkaline Phosphatase 92 U/L (46-116); Anion Gap 8.4 mmol/L (3-11); BUN 17 mg/dL (7-18); Bilirubin, Total 0.4 mg/dL (0.2-1.0); CO2 26.6 mmol/L (21.0-32.0); CREATININE 1.1 mg/dL (0.55-1.02); Calcium 7.7 mg/dL (8.5-10.1); Chloride 107 mmol/L (98-107); Estimated GFR 47.32 (mL/min/1.73m2); Glucose 106 mg/dL (74-106); Sodium 142 mmol/L (136-145); Total Protein 4.5 g/dL (6.4-8.2)
[2022-01-21 14:54] LABS: Potassium 2.7 mmol/L (3.5-5.1)
[2022-01-21 22:28] LABS: CEA 1.6 ng/mL (See Note)
[2022-01-22 18:09] LABS: Cancer Ag 15-3 40 U/mL (<30)
[2022-01-23 09:32] LABS: CA 27 29 51.4 U/mL (<38.0)
== END 2022-01-21 14:16 | disposition home or self-care (01) ==
LOC: LBN 14:15
PROVIDERS: PCP Family Medicine; Visit Provider Internal Medicine Hematology & Oncology
DX: C79.51 Secondary malignant neoplasm of bone (principal); C50.512 Malignant neoplasm of lower-outer quadrant of left female breast
CPT/HCPCS: 80053; 86304; 82378; 85025; 86300

== ENCOUNTER 2022-01-22 03:17 | Outpatient (RCR) | payer MEDICARE, SELFPAY ==
[2022-01-22] MEDS: Normal Saline Flush 10 ML SYR IVP (14:07)
[2022-01-22 14:23] LABS: Abs Immature Grans 0.03 10^3/uL (0.0-0.06); Absolute Basophil Count 0.06 10^3/uL (0.0-0.2); Absolute Eosinophil Count 0.22 10^3/uL (0.0-0.7); Absolute Lymphocyte Count 1.18 10^3/uL (1.2-3.4); Absolute Monocyte Count 0.57 10^3/uL (0.1-0.8); Absolute Neutrophil Count 5.82 10^3/uL (1.2-6.7); Basophils % 0.8; Eosinophils % 2.8; HCT 33.6 % (36.0-46.0); Immature Grans % 0.4; MCH 29.5 pg (27.0-33.0); MCHC 29.8 % (32.0-36.0); MCV 99 fL (80-95); MPV 10.4 fL (8.0-11.0); Monocytes % 7.2; Neutrophils % 73.8; Platelet Count 300 10^3/uL (130-400); RBC 3.39 10^6/uL (3.93-5.22); RDW 15.7 % (11.7-14.6); RDW-SD 57.6 fL; WBC 7.88 10^3/uL (4.4-10.8)
[2022-01-22 14:41] LABS: ALT 17 U/L (14-59); AST 13 U/L (15-37); Albumin 2.1 g/dL (3.4-5.0); Alkaline Phosphatase 91 U/L (46-116); BUN 15 mg/dL (7-18); Bilirubin, Total 0.3 mg/dL (0.2-1.0); CREATININE 0.9 mg/dL (0.55-1.02); Calcium 7.6 mg/dL (8.5-10.1); Chloride 110 mmol/L (98-107); Estimated GFR 59.65 (mL/min/1.73m2); Glucose 140 mg/dL (74-106); Potassium 3.2 mmol/L (3.5-5.1); Sodium 141 mmol/L (136-145); Total Protein 4.9 g/dL (6.4-8.2)
[2022-01-22 23:08] LABS: CEA 1.8 ng/mL (See Note)
[2022-01-26 22:09] LABS: Cancer Ag 15-3 42 U/mL (<30)
== END 2022-02-03 23:59 | disposition home or self-care (01) ==
LOC: INF 03:17
PROVIDERS: PCP Family Medicine; Visit Provider Internal Medicine Hematology & Oncology
DX: C50.919 Malignant neoplasm of unspecified site of unspecified female breast (principal); C79.51 Secondary malignant neoplasm of bone; Z45.2 Encounter for adjustment and management of vascular access device
CPT/HCPCS: 36591; 80053; 86304; 82378; 85025; 86300

== ENCOUNTER 2022-02-13 02:59 | Outpatient (REF) | payer MEDICARE, SELFPAY | END 2022-02-13 03:00 | disposition home or self-care (01) | LOC: LBO 02:59 | PROVIDERS: PCP Family Medicine; Visit Provider Nurse Practitioner Family | DX: N39.0 Urinary tract infection, site not specified (principal) | CPT/HCPCS: 87077; 87086; 87186 ==

== ENCOUNTER 2022-02-13 18:53 | Outpatient (REF) | payer MEDICARE, SELFPAY ==
[2022-02-13 19:49] LABS: Bilirubin Negative (Negative); Blood Moderate (Negative); Clarity Cloudy (Clear); Glucose Negative (Negative); Ketones Trace mg/dL (Negative); Leukocyte Esterase Large (Negative); Nitrite Positive (Negative); Specific Gravity >= 1.030 (1.005-1.025); Urobilinogen 0.2 EU/dL (Up TO 0.2); pH 5.5 (5-8)
[2022-02-13 20:00] LABS: Bacteria Many HPF (Negative); C & S Indicated? Yes; Casts Negative LPF (Negative); Crystals Negative HPF (Negative); Epithelial Cells Few HPF (Negative); Mucus Negative (Negative); WBC >50 HPF (0-5)
== END 2022-02-13 18:54 | disposition home or self-care (01) ==
LOC: LBN 18:53
PROVIDERS: PCP Family Medicine; Visit Provider Family Medicine
DX: N39.0 Urinary tract infection, site not specified (principal)
CPT/HCPCS: 81003; 81015; 87086

== ENCOUNTER → 2022-03-12 01:32 | Outpatient (CLI) | payer MEDICARE, SELFPAY ==
--- NOTE | 2022-03-12 | DI.MRI_ITS ---
Exam(s) MR BRAIN WO/W EXAM: MR BRAIN WO/W CLINICAL HISTORY: F/U BRAIN METS, C79.31,ASSESS TREATMENT RESPONSE TECHNIQUE: Multiplanar multisequence MRI of the brain was performed. Both noninfused and contrast i nfused sequences were performed. IV Contrast injected was 20 cc Dotarem. COMPARISON: MR MR BRAIN WO/W from 11/04/2021 FINDINGS: There appears to been interval left parietal craniotomy. There is mild extra-axial T1 hyperintensity at this level and blooming on SWI consistent with small amount of hemorrhage at craniotomy site. No prominent mass effect at this level. Previously described enhancing lesion in the right caudate region is again noted. Slightly increase in amount of enhancement in this region. In addition, the amount of surrounding white matter edema a ppears to have increased. The previously described lesion in the posterior left parietal region has significantly decreased, as has the amount of surrounding white matter edema. There is, however, some restricted diffusion evid ent at this level on diffusion imaging. SWI imaging exhibits some blooming above this level in the high left parietal region which is most pr obably related to the surgery at this level. There are no new areas of ring-enhancing lesions in the brain. There is symmetrical diffuse meningea l enhancement evident on the present study which is probably related to treatment. This does not hillary ear nodular. No significant ventriculomegaly. No new findings in the posterior fossa-cerebellar hemispheres. PITUITARY GLAND: No mass nor parasellar abnormality. No obvious abnormality in the cavernous sinuses. FLOW VOIDS: The expected flow void are noted. No evidence of obvious aneurysm nor obvious vascular ma lformation. PARANASAL SINUSES: The visualized paranasal sinuses appear unremarkable. ORBITS: No obvious abnormal findings. IMPRESSION: 1. Compared to the prior MRI scan of 11/04/2021 there has been interval left parietal craniotomy. Th e left-sided parietal lesion has significantly decreased in size. Small amount of enhancement eviden t at this level and mild edema but significantly less than previously present. There is, however, a small amount of signal consistent with subacute extra-axial blood at this level. There is no large s ubdural nor epidural hematoma. There is diffuse smooth meningeal enhancement over both convexities, not previously present. This is probably related to treatment. This does not exhibit nodularity. 2. The lesion in the right caudate area has slightly increased in size and the amount of surrounding white matter edema has also increased in this region. DATA REPOSITORY:
[2022-03-12] MEDS: Gadoterate meglumine 20 ML SYRINGE IVP (14:31)
[2022-03-12] MEDS: Normal Saline Flush 10 ML SYR IVP (14:31)
== END ==
PROVIDERS: PCP Family Medicine; Visit Provider Radiology Radiation Oncology
DX: C79.31 Secondary malignant neoplasm of brain (principal); C80.1 Malignant (primary) neoplasm, unspecified; G93.89 Other specified disorders of brain
CPT/HCPCS: 70553

== ENCOUNTER 2022-03-12 02:41 | Outpatient (RCR) | payer MEDICARE, SELFPAY ==
[2022-03-12] MEDS: Normal Saline Flush 10 ML SYR IVP (11:56)
[2022-03-12] MEDS: Heparin 500 UNITS/5 ML SYRINGE IV (14:48)
== END 2022-04-05 23:59 | disposition home or self-care (01) ==
LOC: INF 02:41
PROVIDERS: PCP Family Medicine; Visit Provider Internal Medicine Hematology & Oncology
DX: Z45.2 Encounter for adjustment and management of vascular access device (principal)

== ENCOUNTER 2022-03-17 21:50 | Outpatient (REF) | payer MEDICARE, SELFPAY | END 2022-03-17 21:51 | disposition home or self-care (01) | LOC: LBN 21:50 | PROVIDERS: PCP Family Medicine; Visit Provider Obstetrics & Gynecology | DX: C71.3 Malignant neoplasm of parietal lobe (principal); N39.0 Urinary tract infection, site not specified | CPT/HCPCS: 87077; 87086; 87186 ==

== ENCOUNTER 2022-04-13 16:13 | Outpatient (REF) | payer MEDICARE, SELFPAY ==
[2022-04-13 18:51] LABS: Hemoglobin A1C 5.8 % (<5.7)
== END 2022-04-13 16:14 | disposition home or self-care (01) ==
LOC: LBN 16:13
PROVIDERS: PCP Family Medicine; Visit Provider Nurse Practitioner Family
DX: E11.9 Type 2 diabetes mellitus without complications (principal)
CPT/HCPCS: 83036